=== PATIENT | male | born 1985 | race Caucasian/White ===

== ENCOUNTER 2017-01-01 13:56 | Emergency (ER) | payer OTHER ==
[~2017-01-01] VITALS: Ht 190.5 cm; Wt 135.8 kg
[~2017-01-01 13:56] MED LIST: TRAM-10 PO
[2017-01-01 14:07] VITALS: BP 122/74; PULSE 109; TEMP 36.9; O2SAT 94; Ht 190.5 cm; Wt 135.8 kg
[2017-01-01] MEDS ORDERED: CLIN300C2 PO (15:02)
--- NOTE | 2017-01-01 15:03 | EMERGENCY ROOM VISIT NOTE ---
ED Visit Note First contact with patient: 14:30 CHIEF COMPLAINT: Swelling of mouth HISTORY OF PRESENT ILLNESS: This 31-year-old male patient presented to the emergency department ambulatory complaining of swelling of the roof of the mouth. The patient reports that he has swelling of the roof of his mouth near his right upper molars. He states that the swollen area is tender to touch. He has had issues with the teeth over the past several months and has previously seen a dentist, who scheduled him for extraction of several of his teeth. This appointment is scheduled one week from now. He rates his discomfort a 10/10 and has not been taking anything at home for the symptoms. He has not been on antibiotics for a few months for dental issues. He reports pain with swallowing, but denies difficulty swallowing or difficulty breathing. Denies facial swelling or fever. The patient denies any discharge from the mouth. REVIEW OF SYSTEMS: A 6 system review of systems was completed with positives and pertinent negatives listed in the HPI. ALLERGIES: Pectin, Tea MEDICATIONS: Amlodipine, tramadol PMH: No significant past medical history. SOCIAL HISTORY: The patient lives locally. Former smoker. PHYSICAL EXAM: Vitals are noted on the nurse's note and reviewed by myself. Vital signs stable. Temperature 36.9C orally. GENERAL: This is a 31-year-old male, in no acute distress, nondiaphoretic, well-developed well-nourished. Mouth: There is an area of swelling of the gums just medial to the right upper second molar. The patient has several dental caries. There is no fluctuance or drainage. The remainder of the pharynx and tonsils are without erythema, edema, or exudate. The airway is patent. There is no facial swelling, cervical or submandibular lymphadenopathy. The patient appears uncomfortable and in pain. The patient has overall poor dental hygiene. EARS: External auditory canals clear, tympanic membranes pearly trotter without erythema or effusion bilaterally. ED COURSE: The patient was evaluated as above. Previous records were also reviewed. The patient has been here multiple times over the past several months for dental issues. On exam, he does appear to have a small periapical abscess. There is no fluctuance or drainable area at this time, but the patient will need close follow-up with dentistry. He will be placed on clindamycin to prevent worsening infection and will return if he does have symptoms of worsening infection. Conservative measures were discussed. The patient verbalized understanding of my assessment and treatment plan and was discharged home in good condition. DIAGNOSIS: Periapical abscess Problem List Medical Problems: (1) Anxiety Status: Chronic (2) Depression Status: Chronic (3) Hypertension Status: Chronic Current/Historical Medications Scheduled Amlodipine Besylate (Amlodipine Besylate), 5 MG PO DAILY Clindamycin Hcl (Cleocin), 300 MG PO QID Scheduled PRN Ibuprofen Tab (Advil), 800 MG PO Q4H PRN for Pain Tramadol HCl (Tramadol HCl), 50 MG PO Q8 PRN for Pain Allergies Coded Allergies: Pectin (Unverified Allergy, Unknown, UNKNOWN, 10/31/16) Tea (Unverified Allergy, Unknown, UNKNOWN- ALLERGIC TO PRESERVATIVES IN TEA, 10/31/16) Uncoded Nonscreenable Allergen (Unverified Allergy, Unknown, PRESERVATIVES IN TEA AND JELLY, 10/31/16) Vital Signs Date Time Temp Pulse Resp B/P Pulse Ox O2 Delivery O2 Flow Rate FiO2 01/01/17 14:07 36.9 109 18 122/74 94 Room Air Departure Information Impression Primary Impression: Periapical abscess Dispostion Home / Self-Care Condition GOOD Prescriptions Clindamycin Hcl (CLEOCIN) 300 Mg Cap 300 MG PO QID for 10 Days, #40 CAP Prov: Denise Mota .AMARIS 01/01/17 Referrals Jordyn Garcia D.O. (PCP) Patient Instructions My [facility] Additional Instructions You have been treated in the Emergency Department for Dental Pain/infection. You were prescribed clindamycin to be taken 4 times daily as prescribed. This is an antibiotic. All antibiotics have the potential to cause diarrhea. Stop this medication and contact a medical provider if you were to develop any significant adverse side effects including: wheezing, shortness of breath, passing out, vomiting, or a diffuse rash. Always take antibiotics as directed and COMPLETE the ENTIRE course regardless of the improvement of your symptoms. For pain control, you can use the following yilt-zyc-idclkek medicines (if >12 yo): - Regular strength (325mg/tab) Tylenol (acetaminophen) 2 tabs every 4-6 hours as needed. Do not exceed 12 tablets in a 24 hour period. Avoid taking more than 4 grams (4000 mg) of Tylenol per day. This includes any other sources of acetaminophen you may take on a regular basis. - Regular strength (200 mg/tab) Advil (ibuprofen) 1-2 tabs every 4-6 hours as needed. Do not exceed a dose of 3200 mg per day. Refrain from smoking cigarettes or using chewing tobacco until you have been evaluated by your dentist. Keeping beverages lukewarm and consuming soft foods can decrease your pain. Warm compresses over the affected area may offer some relief. You MUST seek evaluation of your dental pain by a dentist following your visit to the Emergency Department. The Emergency Department is not capable of treating dental issues long-term. You should call your dentist as soon as possible to make an appointment for evaluation of your dental pain. Return to the emergency department if you develop the following symptoms despite treatment course outlined above: fever, intractable pain, increased redness, swelling, or purulent discharge.
[2017-01-01] MEDS ORDERED: ULT50 PO (15:04)
[2017-01-01] MEDS ORDERED: NRV/5 PO (15:04)
[2017-01-01] MEDS ORDERED: IBUP-103 PO (17:47)
== END 2017-01-01 15:12 | disposition home or self-care (01) ==
LOC: C.EDB 13:57 → C.EDD 15:12
DX: K04.7 Periapical abscess without sinus (principal); F41.9 Anxiety disorder, unspecified; F32.9 Major depressive disorder, single episode, unspecified; I10 Essential (primary) hypertension; Z79.899 Other long term (current) drug therapy

== ENCOUNTER 2018-11-24 23:11 | Inpatient (IN) ==
[2018-11-24] MEDS ORDERED: ONDANSETRON INJ 2 MG/ML 2 ML VIAL IV STA (23:52)
[2018-11-24] MEDS ORDERED: MoRPHine SULFATE 4 MG/ML 1 ML CARP\\VIAL IV STA (23:52)
[2018-11-25 00:07] LABS: Basophils # (auto) 0.05 K/uL (0-0.2); Basophils % (auto) 0.3 %; Eosinophils % (auto) 3.1 %; Hematocrit (blood only) 44.1 % (42-52); Hemoglobin 14.9 g/dL (14.0-18.0); Immature Granulocytes # (auto) 0.07 K/uL (0.00-0.02); Immature Granulocytes % (auto) 0.4 %; Lymphocytes % (auto) 21.9 %; Mean Corpuscular Hgb Conc 33.8 g/dL (32-36); Mean Corpuscular Volume 86.3 fL (80-100); Monocytes % (auto) 6.3 %; Neutrophils # (auto) 10.83 K/uL (1.4-6.5); Platelet Count 385 K/uL (130-400); RDW Standard Deviation 43.9 fL (36.4-46.3); Red Blood Count 5.11 M/uL (4.7-6.1); White Blood Count 15.95 K/uL (4.8-10.8)
[2018-11-25] MEDS: SODIUM CHLORIDE 0.9% 1000ML 1,000 ML IV SCH ×2 (00:09→02:37)
[2018-11-25 00:15] LABS: Alanine Aminotransferase 119 U/L (12-78); Albumin Level 3.5 gm/dl (3.4-5.0); Aspartate Aminotransferase 49 U/L (15-37); BUN Creatinine Ratio 9.9 (10-20); Blood Urea Nitrogen 12 mg/dl (7-18); Calcium 8.9 mg/dl (8.5-10.1); Carbon Dioxide 21 mmol/L (21-32); Chloride 110 mmol/L (98-107); Creatinine Clr Calc Pharmacy 122.9 ml/min; Est GFR (African American) 92.8; Glucose 122 mg/dl (70-99); Potassium 3.5 mmol/L (3.5-5.1); Sodium 140 mmol/L (136-145)
[2018-11-25 00:20] LABS: Albumin Globulin Ratio 0.8 (0.9-2); Alkaline Phosphatase 148 U/L (45-117); Bilirubin,Total 0.2 mg/dl (0.2-1); Globulin 4.6 gm/dl (2.5-4.0); Total Protein 8.1 gm/dl (6.4-8.2); Troponin I < 0.015 ng/ml (0-0.045)
[2018-11-25] MEDS ORDERED: IOVERSOL 100ml IV PRN (00:39)
[2018-11-25] MEDS ORDERED: ONDANSETRON INJ 2 MG/ML 2 ML VIAL IV STA (01:21)
[2018-11-25] MEDS ORDERED: CIPROFLOXACIN 400 MG/200 ML BAG IV STA (01:21)
[2018-11-25] MEDS ORDERED: HYDROmorphone INJ 0.5 MG/0.5 ML SYR IV STA (01:21)
[2018-11-25 01:22] LABS: Appearance Urine Clear (Clear); Bilirubin Urine Negative (Negative); Color Urine Yellow; Glucose Urine UA Negative (Negative); Ketones Urine Negative (Negative); Leukocyte Esterase Urine Negative (Negative); Nitrite Urine Negative (Negative); Protein Urine Negative (Negative); Urobilinogen Urine Negative (Negative); pH Urine 6.5 (4.5-7.5)
[2018-11-25 01:44] LABS: Amphetamines+Metham, Urine Neg (Neg); Barbiturates, Urine Neg (Neg); Benzodiazepine, Urine Neg (Neg); Cocaine, Urine Neg (Neg); MDMA (Ecstacy), Urine Neg (Neg); Methadone, Urine Neg (Neg); Opiate, Urine Pos (Neg); Phencyclidine, Urine Neg (Neg)
[2018-11-25] MEDS ORDERED: ONDANSETRON INJ 2 MG/ML 2 ML VIAL IV PRN ×2 (02:56→09:33)
[2018-11-25] MEDS ORDERED: MoRPHine SULFATE 4 MG/ML 1 ML CARP\\VIAL ONE (03:03)
[2018-11-25] MEDS: MoRPHine SULFATE 4 MG/ML 1 ML CARP\\VIAL IV PRN ×2 (03:09→08:16)
[2018-11-25] MEDS: LACTATED RINGER'S 1,000 ML IV SCH ×4 (03:13→23:43)
[2018-11-25] MEDS ORDERED: HYDROmorphone INJ 1 MG/ML SYRINGE IV STA (04:49)
[2018-11-25] MEDS ORDERED: HYDROmorphone INJ 1 MG/ML SYRINGE ONE (04:53)
--- NOTE | 2018-11-25 07:44 | History & Physical Report ---
Date of Service November 25, 2018 Assessment & Plan (1) Cholecystitis: 33-year-old male with right upper quadrant abdominal pain ED labwork: WBC elevated at 15.95; Total Bili 0.2; LFTs elevated AST 49; ALT 119; Alk Phos 148 CT scan of abdomen/pelvis - possible cholecystitis Patient admitted by our service. Will proceed with Laparoscopic Cholecystectomy , Possible Open Cholecystectomy in OR today with Dr. De Jesus. Risks and benefits of surgery reviewed with patient. All questions answered. Patient NPO. IVFs running. SCDs Patient received Cipro in ED. as above. clinically c/w cholecystitis. discussed options/risks ( bleeding/ infection/dvt/pe/mi/cva/bile leaks, injury to other organs etc... questions answered will proceed with lap michaela kenneth Present on Admission?: Yes History of Present Illness Primary Care Provider: Jordyn Garcia Mr. Alonso is a 33-year-old male with past medical history significant for anxiety, depression, suicidal ideation, hypertension who presented to [facility] ED for evaluation of abdominal pain that began last evening around 10PM after eating some chocolate. Patient states that he had 2 hot pockets for dinner yesterday around 6PM. He reports that for two days prior to start of abdominal pain he was unable to move his bowels. He denies ever having abdominal pain like this before. Denies history of abdominal pain after eating greasy, fatty, or fried foods. Denies history of constipation or diarrhea. He currently rates his pain a 10/10. Denies fevers or chills. He denies vomiting, but does report associated nausea from the pain. He denies previous abdominal surgery, but does report that he was seen in the ED "a few years ago" and was told that he needed to have his appendix out, but he refused surgery and was treated with outpatient antibiotics. Patient never had appendix removed. Patient denies cardiac or pulmonary issues. He reports 1 prior surgery- tooth extraction. He denies alcohol use, denies recreational drug use. Reports that he does not take any medications. Of note, patient's opiate screen was positive- patient denies recent opiate use. Patient states that family has a strong history of gallbladder issues. Allergies Allergy/AdvReac Type Severity Reaction Status Date / Time pectin Allergy Unknown UNKNOWN Unverified 11/24/18 23:38 Tea Allergy Unknown UNKNOWN- Uncoded 11/24/18 23:38 ALLERGIC TO PRESERVATIVES IN TEA Uncoded Nonscreenable Allergy Unknown PRESERVATIVES Uncoded 11/24/18 23:38 Allergen IN TEA AND JELLY Home Medications Home Medications Medication Instructions Recorded Confirmed Type No Known Home Medications 11/24/18 11/24/18 History Past Med/Surg History Medical History Anxiety Cholecystitis Depression Hypertension Social History Current Living Situation: Other Current Living Situation Comment: Housemate Other Information That Helps Us Care for You: No Feels Safe at Home: Yes Safety Concerns: Feels Safe At This Time and Afraid for Self Smoking Status: Former smoker Do You Dip or Chew Tobacco: No Hx Alcohol Use: No Hx Substance Use: No Beliefs That Will Affect Care: Sikhism Sikhism Beliefs: Jainism Preferred Language: Turkish Communication Ability: Effective Field Administrative Assistant Required: No Physical Exam 2 Vital Signs (Past 24 Hours): Last Vital Signs Temp 36.7 C 11/25/18 07:04 Pulse 90 11/25/18 07:04 Resp 18 11/25/18 07:04 BP 151/97 H 11/25/18 07:04 Pulse Ox 95 11/25/18 07:04 Constitutional: + obese patient very tearful throughout entire history and physical- very scared of having surgery. Eyes: + anicteric sclerae Respiratory: normal respiratory effort, lungs clear to auscultation Cardiovascular: RRR, no murmur, no edema Gastrointestinal (Abdomen): Percussion/Palpation: + abdomen tender (tender to palpation in right upper quadrant. ), + guarding and abdomen soft
--- NOTE | 2018-11-25 08:35 | CT Scan Report ---
CT SCAN OF THE ABDOMEN AND PELVIS WITH IV CONTRAST CLINICAL HISTORY: Upper abdominal pain. Nausea and vomiting. COMPARISON STUDY: No priors. TECHNIQUE: Following the IV administration of 90 cc of Optiray 320, CT scan of the abdomen and pelvi s is performed from the lung bases to the proximal femora. Images are reviewed in the axial, sagittal , and coronal planes. IV contrast was administered without complication. A dose lowering technique wa s utilized adhering to the principles of ALARA. CT DOSE: 1710.97 mGy.cm FINDINGS: Lung bases: The heart is normal in size and without pericardial effusion. The lung bases are clear no ting mild bibasilar atelectasis. Liver: The contrast-enhanced liver is top normal in size and demonstrates diffusely diminished attenu ation consistent with severe hepatic steatosis. Fatty sparing is noted adjacent to gallbladder fossa. There is no intrahepatic biliary ductal dilatation. The hepatic veins and portal veins are patent. Gallbladder: There are numerous calcified gallstones. There are gallbladder is distended, and the wal l is thickened and hyperemic. There is pericholecystic inflammation, and the appearance is consistent with acute cholecystitis. The common bile duct is normal in caliber. Spleen: The spleen is mildly enlarged, measuring 14.1 cm in length. Pancreas: There is age advanced fatty atrophy of the pancreas. Adrenal glands: Unremarkable. Kidneys: The contrast enhanced kidneys are normal in size and without hydronephrosis. The kidneys enh ance symmetrically. Abdominal vasculature: The abdominal aorta is normal in course and caliber. Bowel: Moderate colonic fecal retention is observed. No bowel obstruction is identified. The appendix is well-visualized and normal. Peritoneum: There is no intraperitoneal free air or abdominal ascites. Lymphadenopathy: A mildly enlarged lymph node in the zoe hepatis centimeter 164 measures 17 mm shor t axis. A portacaval node measures 13 mm short axis. Pelvic viscera: The bladder, prostate, and seminal vesicles are normal as imaged. Skeletal structures: No lytic or blastic lesions are seen. IMPRESSION: 1. Cholelithiasis with evidence of acute cholecystitis. 2. Severe hepatic steatosis. 3. Mild splenomegaly. 4. Mildly enlarged lymph nodes in the zoe hepatis are likely on a reactive basis. Electronically signed by: Chavez Estes M.D. 11/25/2018 8:34 AM
--- NOTE | 2018-11-25 09:30 | Anesthesiology Consultation ---
Date of Service November 25, 2018 Assessment & Plan (1) Encounter for pre-operative examination: Chart Review Chart Review: Acceptable Risk for Surgery NPO Date Last Intake of Fluids: 11/25/18 Time Last Intake of Fluids: 03:00 Date Last Intake of Solids: 11/25/18 Time Last Intake of Solids: 03:00 History Surgery Operation Date: 11/25/18 10:00 Proposed Procedures p Laparoscopic Cholecystectomy - Ranjit De Jesus DO Height/Weight Height: 6 ft 3 in Weight: 145.2 kg Allergies Allergy/AdvReac Type Severity Reaction Status Date / Time pectin Allergy Unknown UNKNOWN Unverified 11/24/18 23:38 Tea Allergy Unknown UNKNOWN- Uncoded 11/24/18 23:38 ALLERGIC TO PRESERVATIVES IN TEA Uncoded Nonscreenable Allergy Unknown PRESERVATIVES Uncoded 11/24/18 23:38 Allergen IN TEA AND JELLY Medications Home Medications Medication Instructions Recorded Confirmed Last Taken No Known Home Medications 11/24/18 11/24/18 Unknown Active Medications Generic Name Dose Route Start Last Admin Trade Name Venuq PRN Reason Stop Dose Admin Lactated Ringer's 1,000 mls @ 125 mls/hr 11/25/18 02:56 11/25/18 03:13 Lr IV 12/25/18 02:55 125 mls/hr .Q8H DARRELL Administration Ioversol 90 ml 11/25/18 00:39 11/25/18 00:39 Optiray 320 100ml IV 11/29/18 00:38 1 ml ONCE PRN Administration Interaction Checking Morphine Sulfate 3 mg 11/25/18 02:56 11/25/18 08:16 Morphine Sulfate IV 12/09/18 02:55 3 mg Q2H PRN Administration Pain Ondansetron HCl 4 mg 11/25/18 02:56 11/25/18 03:09 Zofran IV 12/25/18 02:55 4 mg Q4 PRN Administration Nausea Past Medical History Medical History Anxiety Cholecystitis Depression Hypertension Social History Smoking Status: Former smoker Do You Dip or Chew Tobacco: No Hx Alcohol Use: No Hx Substance Use: No Physical Exam Vital Signs Last Vital Signs Temp 36.7 C 11/25/18 07:04 Pulse 90 11/25/18 07:04 Resp 18 11/25/18 07:04 BP 151/97 H 11/25/18 07:04 Pulse Ox 95 11/25/18 07:04 Testing Laboratory Results 11/24/18 23:35 11/24/18 23:35 Urine Color Yellow 11/25/18 01:05 Urine Appearance Clear (Clear) 11/25/18 01:05 Urine pH 6.5 (4.5-7.5) 11/25/18 01:05 Ur Specific [place] 1.030 (1.000-1.030) 11/25/18 01:05 Urine Protein Negative (Negative) 11/25/18 01:05 Urine Glucose (UA) Negative (Negative) 11/25/18 01:05 Urine Ketones Negative (Negative) 11/25/18 01:05 Urine Nitrite Negative (Negative) 11/25/18 01:05 Ur Leukocyte Esterase Negative (Negative) 11/25/18 01:05
[2018-11-25] MEDS ORDERED: ePHEDrine sulfate 50 MG/ML AMP IV PRN (09:33)
[2018-11-25] MEDS ORDERED: ATROPINE SULFATE 0.1 MG/ML 10ML SYR IV PRN (09:33)
[2018-11-25] MEDS ORDERED: fentaNYL citrate 100 MCG/2 ML VIAL IV PRN (09:33)
[2018-11-25] MEDS ORDERED: HYDROmorphone INJ 1 MG/ML SYRINGE IV PRN (09:33)
--- NOTE | 2018-11-25 09:44 | History & Physical Bridge Note ---
Date of Service November 25, 2018 History & Physical Bridge Note I have examined the patient, reviewed the History & Physical and in the interval since the performance of the History & Physical I have noted the following changes of clinical significance: no changes noted
[2018-11-25] MEDS ORDERED: ONDANSETRON INJ 2 MG/ML 2 ML VIAL ONE (09:56)
[2018-11-25] MEDS ORDERED: fentaNYL citrate 100 MCG/2 ML VIAL ONE ×2 (09:56→11:19)
[2018-11-25] MEDS ORDERED: SUCCINYLCHOLINE CHLORIDE 20 MG/ML 10 ML VIAL ONE (09:56)
[2018-11-25] MEDS ORDERED: DEXAMETHASONE SOD INJ 4 MG/ML VIAL ONE (09:56)
[2018-11-25] MEDS ORDERED: PROPOFOL IV EMULSION 10 MG/ML 20 ML VIAL IV ONE ×2 (09:56→10:31)
[2018-11-25] MEDS ORDERED: ROCURONIUM BROMIDE 10 MG/ML 5 ML VIAL ONE (09:56)
[2018-11-25] MEDS ORDERED: LIDOCAINE HCL 2% 2 ML VIAL/AMP(20MG/ML) INFIL ONE (09:56)
[2018-11-25] MEDS ORDERED: BUPIVACAINE/EPINEPHRINE 0.5% MPF 1:200,000 30 ML VIAL ONE (10:11)
[2018-11-25] MEDS ORDERED: CEFAZOLIN 250 MG/ML 1 GM VIAL ONE ×2 (10:35→10:40)
[2018-11-25] MEDS ORDERED: GLYCOPYRROLATE 0.2 MG/ML VIAL ONE (11:28)
[2018-11-25] MEDS ORDERED: NEOSTIGMINE METHYLSULFATE 5 MG/5 ML SYR ONE (11:28)
--- NOTE | 2018-11-25 12:54 | Anesthesiology Progress Note ---
Date of Service November 25, 2018 Anesthesia Post Procedure Vital Signs Vital Signs: Temp Pulse Pulse Pulse Resp BP BP 11/25/18 12:45 37.2 C 92 H 21 11/25/18 12:35 96 H 21 11/25/18 12:25 108 H 22 11/25/18 12:15 105 H 18 11/25/18 12:09 36.3 C L 105 H 24 11/25/18 07:04 36.7 C 90 18 11/25/18 03:00 36.8 C 82 16 11/25/18 02:23 96 H 18 152/98 H 11/25/18 01:11 96 H 18 153/99 H 11/24/18 23:19 36.3 C L 106 H 24 144/92 H BP Pulse Ox 11/25/18 12:45 147/79 H 94 11/25/18 12:35 131/84 92 11/25/18 12:25 146/81 H 96 11/25/18 12:15 130/69 95 11/25/18 12:09 148/80 H 98 11/25/18 07:04 151/97 H 95 11/25/18 03:00 93/66 L 94 11/25/18 02:23 95 11/25/18 01:11 98 11/24/18 23:19 96 Pain Intensity Bilateral Abdomen: Pain Intensity: 3 Notes Mental Status: alert / awake / arousable Patient Amnestic to Procedure: Yes Nausea / Vomiting: adequately controlled Pain: adequately controlled Airway Patency, RR, SpO2: stable & adequate BP & HR: stable & adequate Hydration State: stable & adequate Anesthetic Complications: no major complications apparent and Pt Satisfied with anesthetic care
[2018-11-25] MEDS ORDERED: MoRPHine SULFATE 4 MG/ML 1 ML CARP\\VIAL IV PRN (13:03)
[2018-11-25] MEDS ORDERED: MoRPHine SULFATE 2 MG/ML CARP IV PRN (13:03)
--- NOTE | 2018-11-25 13:33 | Operative Report ---
Post Operative Report Pre & Post Diagnosis Operation Date: 11/25/18 10:00 Pre-Op Diagnosis: Acute Cholecystitis Post-Op Diagnosis: Acute Cholecystitis Procedure Operation Date: 11/25/18 10:00 Actual Procedures p Laparoscopic Cholecystectomy(Not Applicable) - Ranjit De Jesus DO Surgeon Ranjit De Jesus DO Progressive Care Unit Registered Nurse ira Hernandez Estimated Blood Loss 20 Findings Consistent with Post-Op Diagnosis Specimens gallbladder Description of Procedure After informed consent was obtained the patient was taken to the operating room and placed in the supine position. After successful intubation the abdomen was sterilely prepped and draped in usual fashion. A periumbilical incision was made with an 11 blade scalpel and carried down through the soft tissue using electrocautery. The anterior rectus fascia was opened using electrocautery and 2 #0 Vicryl stay sutures were placed. The peritoneum was elevated with hemostats and incised under direct vision using Metzenbaum scissors. A finger sweep was performed and a 12 mm Barrios trocar was placed. The abdomen was insufflated to 18 mmHg. The laparoscope was inserted and the abdomen was examined in 360. No gross abnormalities were identified. A subxiphoid 5 mm port and 2 right upper quadrant 5 mm ports were placed under direct vision. The gallbladder was markedly and acutely inflamed. We were unable to grasp it because of the distention. I use a gallbladder needle to suction out about 30 cc of bile. Once we had it decompressed we were able to grasp it. The patient was placed in a reverse Trendelenburg position and slightly airplaned to the left. The gallbladder was grasped and elevated superiorly and laterally. A [place] dissector was used to take down adhesions around the neck of the gallbladder. The cystic duct was identified and skeletonized. It was clipped twice proximally and once distally and transected using a laparoscopic scissor. In similar fashion the cystic artery was identified and skeletonized clipped and divided. The gallbladder was removed from the gallbladder fossa with electrocautery. It was placed into an Endo Catch bag. Thorough irrigation was performed. At the end of the procedure there was adequate hemostasis and no evidence of any bile leaks. A final look around the abdomen showed no other abnormalities. The gallbladder and trochars were all removed and the abdomen was desufflated. The fascia of the camera port was closed using 0 Vicryl in a [id number] fashion. All the wounds were irrigated and closed using 4-0 Monocryl. Marcaine was injected around them for postoperative analgesia and skin glue used as a dressing. The patient was awaken extubated and transferred to recovery in stable condition. My physician's occupational therapist assistants was present throughout the entire case... helped with prepping the patient. With exposure for trocar placement, as well as retracted the gallbladder throughout the case and also assisted with wound closure and dressing placement. I attest to the content of the Intraoperative Record and any orders documented therein. Any exceptions are noted below.
[2018-11-25] MEDS ORDERED: NURSING DECISION MEDICATION ONE (15:29)
[2018-11-25] MEDS: HYDROCODONE/ACETAMOPHEN 5/325MG TAB PO PRN ×3 (15:33→23:43)
[2018-11-25] MEDS ORDERED: COUGH DROP (SUGAR FREE) LOZ 24 LOZ/1 BOX BUCCAL PRN (15:44)
[2018-11-25] MEDS: CEFAZOLIN 2000MG 2,000 MG/15 ML SYR IV SCH (18:02)
--- NOTE | 2018-11-25 23:39 | Emergency Department Note ---
History of Present Illness General Chief complaint: Vomiting Stated complaint: VOMIT, BELLY CRAMPS Time Seen by Provider: 11/24/18 23:32 History of Present Illness Maximum Pain Intensity: 6 This is a 33-year-old male presenting to the emergency department with complaints of epigastric abdominal pain, nausea, and vomiting for the last 2 hours. The patient states that he had dinner around 6 PM, eating a hot pocket, and shortly thereafter began having some mild abdominal discomfort. This has significantly worsened and he rates the current pain a 9/10. He is not having lower abdominal pain or diarrhea. His emesis was primarily watery and food. No blood or coffee-ground emesis. The patient has a mild headache from the vomiting but no chest pain, chest tightness, or shortness of breath. No recent travel history or antibiotic use. He does not have a history of abdominal surgery in the past. He has not taken anything [id number] and does not identify aggravating or alleviating factors. Home Medications Home Medications Medication Instructions Recorded Confirmed Type No Known Home Medications 11/24/18 11/24/18 History Allergies Allergy/AdvReac Type Severity Reaction Status Date / Time pectin Allergy Unknown UNKNOWN Unverified 11/24/18 23:38 Tea Allergy Unknown UNKNOWN- Uncoded 11/24/18 23:38 ALLERGIC TO PRESERVATIVES IN TEA Uncoded Nonscreenable Allergy Unknown PRESERVATIVES Uncoded 11/24/18 23:38 Allergen IN TEA AND JELLY Past Med/Surg History Medical History Anxiety Cholecystitis Depression Hypertension Social History Current Living Situation: Other Current Living Situation Comment: Housemate Other Information That Helps Us Care for You: No Feels Safe at Home: Yes Safety Concerns: Feels Safe At This Time and Afraid for Self Smoking Status: Former smoker Do You Dip or Chew Tobacco: No Hx Alcohol Use: No Hx Substance Use: No Beliefs That Will Affect Care: Jewish Jewish Beliefs: Muslim Preferred Language: Maltese Communication Ability: Effective Cafeteria Supervisor Required: No Review of Systems A total of 10 systems reviewed and were otherwise negative Physical Exam Vital Signs Vital Signs - 24 hr 11/25/18 01:11 11/25/18 02:23 11/25/18 03:00 Temperature 36.8 C Temperature Source Oral Pulse Rate [Apical] Pulse Rate [Right Finger] Pulse Rate [Right] 96 H 96 H 82 Pulse Rhythm [Apical] Pulse Rhythm [Right] Regular Regular Regular Pulse Strength [Apical] Pulse Strength [Right] Normal Normal Normal Respiratory Rate 18 18 16 Respiratory Effort / Characteristics Non-Labored Spontaneous Non-Labored Spontaneous Non-Labored Respiratory Depth Normal Normal Normal Respiratory Pattern Regular Regular Blood Pressure [Left Arm] 153/99 H 152/98 H Blood Pressure [Right Arm] 93/66 L Blood Pressure Mean [Left Arm] 117 116 Blood Pressure Mean [Right Arm] 75 Blood Pressure Position [Left Arm] Lying Sitting Blood Pressure Position [Right Arm] Sitting Pulse Oximetry 98 95 94 Oxygen Delivery Method Room Air Room Air Room Air Oxygen Flow Rate 11/25/18 07:04 11/25/18 12:09 11/25/18 12:15 Temperature 36.7 C 36.3 C L Temperature Source Oral Temporal Artery Scan Pulse Rate [Apical] 105 H 105 H Pulse Rate [Right Finger] Pulse Rate [Right] 90 Pulse Rhythm [Apical] Regular Regular Pulse Rhythm [Right] Pulse Strength [Apical] Normal Normal Pulse Strength [Right] Respiratory Rate 18 24 18 Respiratory Effort / Characteristics Non-Labored Spontaneous Non-Labored Non-Labored Respiratory Depth Normal Normal Normal Respiratory Pattern Regular Regular Regular Blood Pressure [Left Arm] Blood Pressure [Right Arm] 151/97 H 148/80 H 130/69 Blood Pressure Mean [Left Arm] Blood Pressure Mean [Right Arm] 115 102 89 Blood Pressure Position [Left Arm] Blood Pressure Position [Right Arm] Lying Pulse Oximetry 95 98 95 Oxygen Delivery Method Room Air Oxymask Oxymask Oxygen Flow Rate 10 10 11/25/18 12:25 11/25/18 12:35 11/25/18 12:45 Temperature 37.2 C Temperature Source Temporal Artery Scan Pulse Rate [Apical] 108 H 96 H 92 H Pulse Rate [Right Finger] Pulse Rate [Right] Pulse Rhythm [Apical] Regular Regular Regular Pulse Rhythm [Right] Pulse Strength [Apical] Normal Normal Normal Pulse Strength [Right] Respiratory Rate 22 21 21 Respiratory Effort / Characteristics Non-Labored Non-Labored Non-Labored Respiratory Depth Normal Normal Normal Respiratory Pattern Regular Regular Regular Blood Pressure [Left Arm] Blood Pressure [Right Arm] 146/81 H 131/84 147/79 H Blood Pressure Mean [Left Arm] Blood Pressure Mean [Right Arm] 102 99 101 Blood Pressure Position [Left Arm] Blood Pressure Position [Right Arm] Pulse Oximetry 96 92 94 Oxygen Delivery Method Oxymask Nasal Cannula Nasal Cannula Oxygen Flow Rate 10 4 4 11/25/18 13:00 11/25/18 13:12 11/25/18 13:37 Temperature 37.3 C 36.9 C Temperature Source Oral Oral Pulse Rate [Apical] Pulse Rate [Right Finger] 104 H 93 H Pulse Rate [Right] Pulse Rhythm [Apical] Pulse Rhythm [Right] Pulse Strength [Apical] Pulse Strength [Right] Respiratory Rate 18 16 Respiratory Effort / Characteristics Non-Labored Spontaneous Non-Labored Spontaneous Non-Labored Spontaneous Respiratory Depth Normal Normal Normal Respiratory Pattern Regular Regular Regular Blood Pressure [Left Arm] Blood Pressure [Right Arm] 116/69 137/85 Blood Pressure Mean [Left Arm] Blood Pressure Mean [Right Arm] 84 102 Blood Pressure Position [Left Arm] Blood Pressure Position [Right Arm] Sitting Lying Pulse Oximetry 93 94 Oxygen Delivery Method Nasal Cannula Nasal Cannula Nasal Cannula Oxygen Flow Rate 4 4 4 11/25/18 14:01 11/25/18 14:56 11/25/18 16:00 Temperature 36.6 C 36.8 C 36.7 C Temperature Source Oral Oral Oral Pulse Rate [Apical] Pulse Rate [Right Finger] 109 H 109 H 109 H Pulse Rate [Right] Pulse Rhythm [Apical] Pulse Rhythm [Right] Pulse Strength [Apical] Pulse Strength [Right] Respiratory Rate 16 18 18 Respiratory Effort / Characteristics Non-Labored Spontaneous Non-Labored Spontaneous Respiratory Depth Normal Normal Normal Respiratory Pattern Regular Regular Blood Pressure [Left Arm] Blood Pressure [Right Arm] 139/92 128/85 124/73 Blood Pressure Mean [Left Arm] Blood Pressure Mean [Right Arm] 107 99 90 Blood Pressure Position [Left Arm] Blood Pressure Position [Right Arm] Lying Pulse Oximetry 94 91 91 Oxygen Delivery Method Nasal Cannula Room Air Room Air Oxygen Flow Rate 4 11/25/18 23:03 11/25/18 23:04 Temperature 36.9 C 36.9 C Temperature Source Oral Oral Pulse Rate [Apical] Pulse Rate [Right Finger] 115 H 115 H Pulse Rate [Right] Pulse Rhythm [Apical] Pulse Rhythm [Right] Pulse Strength [Apical] Pulse Strength [Right] Respiratory Rate 18 18 Respiratory Effort / Characteristics Respiratory Depth Respiratory Pattern Blood Pressure [Left Arm] 128/70 Blood Pressure [Right Arm] Blood Pressure Mean [Left Arm] 89 Blood Pressure Mean [Right Arm] Blood Pressure Position [Left Arm] Lying Blood Pressure Position [Right Arm] Pulse Oximetry 92 92 Oxygen Delivery Method Room Air Room Air Oxygen Flow Rate VITALS: Vitals are noted on the nurse's note and reviewed by myself. Vital signs stable. GENERAL: Well-developed, well-nourished, white male, who is in no acute distress and resting comfortably. Patient is cooperative with the examination. HEAD: Normocephalic atraumatic. EYES: Pupils equal round and reactive to light and accommodation. Conjunctivae without injection, sclerae without icterus. Extraocular movements intact. NECK: Supple without nuchal rigidity. No lymphadenopathy. No thyromegaly. Cervical spine is nontender. HEART: Regular rate and rhythm without murmurs gallops or rubs. LUNGS: Clear to auscultation bilaterally without wheezes, rales or rhonchi. No retractions or accessory muscle use. ABDOMEN: Positive normal bowel sounds x 4. Soft with epigastric tenderness on palpation. No rebound or guarding. MUSCULOSKELETAL: No muscle atrophy, erythema, or edema noted. Full range of motion in all extremities. NEURO: Patient was alert and oriented to person place and time. CN II through XII grossly intact. SKIN: The skin was without rashes, erythema, edema, or bruising. Capillary refill less than 2 seconds. Course Administered Medications Hydrocodone Bitart/Acetaminophen (Anton 5/325) 1 tab PO Q4H PRN PRN Reason: MODERATE Pain (Scale 4,5,6) Stop: 12/09/18 13:02 Last Admin: 11/25/18 19:21 Dose: 1 tab Admin: 11/25/18 15:33 Dose: 1 tab Lactated Ringer's (Lr) 1,000 mls @ 125 mls/hr IV .Q8H DARRELL Stop: 12/25/18 02:55 Last Admin: 11/25/18 16:29 Dose: 125 mls/hr Infusion: 11/25/18 16:29 Dose: 125 mls/hr Admin: 11/25/18 13:10 Dose: 125 mls/hr Infusion: 11/25/18 13:05 Dose: 0 mls/hr Admin: 11/25/18 03:13 Dose: 125 mls/hr Cefazolin Sodium (Ancef 2000mg) 2,000 mg in 15 mls @ 3.75 mls/min IV Q8H DARRELL; Protocol Stop: 11/26/18 17:59 Last Admin: 11/25/18 18:02 Dose: 3.75 mls/min Ioversol (Optiray 320 100ml) 90 ml IV ONCE PRN PRN Reason: Interaction Checking Stop: 11/29/18 00:38 Last Admin: 11/25/18 00:39 Dose: 1 ml Menthol (Nice) 1 jose e BUCCAL PRN PRN PRN Reason: Cough Stop: 12/25/18 15:43 Last Admin: 11/25/18 16:01 Dose: 1 jose e Morphine Sulfate (Morphine Sulfate) 3 mg IV Q2H PRN PRN Reason: Pain Stop: 12/09/18 02:55 Last Admin: 11/25/18 08:16 Dose: 3 mg Admin: 11/25/18 03:09 Dose: 3 mg Ondansetron HCl (Zofran) 4 mg IV Q4 PRN PRN Reason: Nausea Stop: 12/25/18 02:55 Last Admin: 11/25/18 03:09 Dose: 4 mg Discontinued Medications Bupivacaine HCl/Epinephrine Bitart (Sensorcaine/Epinephrine 0.5% Mpf 1:200,000) Confirm Administered Dose 30 ml .ROUTE .STGezlong-MED ONE Stop: 11/25/18 10:12 Last Admin: 11/25/18 11:34 Dose: 10 ml Cefazolin Sodium (Ancef) Confirm Administered Dose 2,000 mg .ROUTE .STK-MED ONE Stop: 11/25/18 10:36 Last Admin: 11/25/18 10:39 Dose: 2,000 mg Hydromorphone HCl (Dilaudid) 0.5 mg IV NOW STA Stop: 11/25/18 01:22 Last Admin: 11/25/18 01:27 Dose: 0.5 mg Hydromorphone HCl (Dilaudid) 1 mg IV NOW STA Stop: 11/25/18 04:50 Last Admin: 11/25/18 04:55 Dose: 1 mg Hydromorphone HCl (Dilaudid) Confirm Administered Dose 1 mg .ROUTE .STK-MED ONE Stop: 11/25/18 04:54 Last Admin: 11/25/18 04:56 Dose: Not Given Sodium Chloride (Nss 1000ml) 1,000 mls @ 999 mls/hr IV .Q1H1M [facility] Stop: 11/25/18 01:45 Last Admin: 11/25/18 02:37 Dose: Not Given Infusion: 11/25/18 01:12 Dose: 0 mls/hr Admin: 11/25/18 00:09 Dose: 999 mls/hr Ciprofloxacin (Cipro) 400 mg in 200 mls @ 200 mls/hr IV NOW STA Stop: 11/25/18 02:20 Last Infusion: 11/25/18 02:33 Dose: 0 mls/hr Admin: 11/25/18 01:27 Dose: 200 mls/hr Morphine Sulfate (Morphine Sulfate) 4 mg IV NOW STA Stop: 11/24/18 23:53 Last Admin: 11/25/18 00:09 Dose: 4 mg Morphine Sulfate (Morphine Sulfate) Confirm Administered Dose 4 mg .ROUTE .STK- MED ONE Stop: 11/25/18 03:04 Last Admin: 11/25/18 04:03 Dose: Not Given Ondansetron HCl (Zofran) 4 mg IV NOW STA Stop: 11/24/18 23:53 Last Admin: 11/25/18 00:09 Dose: 4 mg Ondansetron HCl (Zofran) 4 mg IV NOW STA Stop: 11/25/18 01:22 Last Admin: 11/25/18 01:27 Dose: 4 mg Medical Decision Making Differential Diagnosis Differential diagnosis: Etiologies such as biliary colic, cholecystitis, hepatitis, pancreatitis, cardiac disease, pancreatitis, gastritis, peptic ulcer disease, appendicitis, cystitis, diverticulitis, mesenteric ischemia, inflammatory bowel disease, ileus , bowel obstruction, testicular/adnexal torsion, aortic pathology, shingles, as well as others were considered Laboratory Data Result diagrams: 11/24/18 23:35 11/24/18 23:35 Lab Results 11/24/18 11/24/18 11/25/18 Range/Units 23:35 23:35 01:05 WBC 15.95 H (4.8-10.8) K/uL RBC 5.11 (4.7-6.1) M/uL Hgb 14.9 (14.0-18.0) g/dL Hct 44.1 (42-52) % MCV 86.3 (80-100) fL MCH 29.2 (25-34) pg MCHC 33.8 (32-36) g/dL RDW Std Deviation 43.9 (36.4-46.3) fL RDW Coeff of Kai 14.0 (11.5-14.5) % Plt Count 385 (130-400) K/uL MPV 10.0 (7.4-10.4) fL Immature Gran % (Auto) 0.4 % Neut % (Auto) 68.0 % Lymph % (Auto) 21.9 % [place] % (Auto) 6.3 % Eos % (Auto) 3.1 % Baso % (Auto) 0.3 % Immature Gran # (Auto) 0.07 H (0.00-0.02) K/uL Neut # (Auto) 10.83 H (1.4-6.5) K/uL Lymph # (Auto) 3.50 H (1.2-3.4) K/uL [place] # (Auto) 1.00 H (0.11-0.59) K/uL Eos # (Auto) 0.50 (0-0.5) K/uL Baso # (Auto) 0.05 (0-0.2) K/uL Sodium 140 (136-145) mmol/L Potassium 3.5 (3.5-5.1) mmol/L Chloride 110 H (98-107) mmol/L Carbon Dioxide 21 (21-32) mmol/L Anion Gap 9.0 (3-11) BUN 12 (7-18) mg/dl Creatinine 1.18 (0.6-1.4) mg/dl Est Cr Clr Drug Dosing 122.9 ml/min Est GFR ( Amer) 92.8 Est GFR (Non-Af Amer) 80.0 BUN/Creatinine Ratio 9.9 L (10-20) Glucose 122 H (70-99) mg/dl Calcium 8.9 (8.5-10.1) mg/dl Total Bilirubin 0.2 (0.2-1) mg/dl AST 49 H (15-37) U/L ALT 119 H (12-78) U/L Alkaline Phosphatase 148 H (45-117) U/L Troponin I < 0.015 (0-0.045) ng/ml Total Protein 8.1 (6.4-8.2) gm/dl Albumin 3.5 (3.4-5.0) gm/dl Globulin 4.6 H (2.5-4.0) gm/dl Albumin/Globulin Ratio 0.8 L (0.9-2) Lipase 118 (73-393) U/L Urine Color Urine Appearance (Clear) Urine pH (4.5-7.5) Ur Specific [place] (1.000-1.030) Urine Protein (Negative) Urine Glucose (UA) (Negative) Urine Ketones (Negative) Urine Blood (Negative) Urine Nitrite (Negative) Urine Bilirubin (Negative) Urine Urobilinogen (Negative) Ur Leukocyte Esterase (Negative) Urine Opiates Screen Pos H (Neg) Ur Methadone, Qual Neg (Neg) Urine Barbiturates Neg (Neg) Ur Phencyclidine (PCP) Neg (Neg) U Amphetamin/Meth Scrn Neg (Neg) MDMA (Ecstasy) Screen Neg (Neg) U Benzodiazepines Scrn Neg (Neg) Ur Cocaine Metabolite Neg (Neg) U Marijuana (THC) Screen Neg (Neg) 11/25/18 Range/Units 01:05 WBC (4.8-10.8) K/uL RBC (4.7-6.1) M/uL Hgb (14.0-18.0) g/dL Hct (42-52) % MCV (80-100) fL MCH (25-34) pg MCHC (32-36) g/dL RDW Std Deviation (36.4-46.3) fL RDW Coeff of Kai (11.5-14.5) % Plt Count (130-400) K/uL MPV (7.4-10.4) fL Immature Gran % (Auto) % Neut % (Auto) % Lymph % (Auto) % [place] % (Auto) % Eos % (Auto) % Baso % (Auto) % Immature Gran # (Auto) (0.00-0.02) K/uL Neut # (Auto) (1.4-6.5) K/uL Lymph # (Auto) (1.2-3.4) K/uL [place] # (Auto) (0.11-0.59) K/uL Eos # (Auto) (0-0.5) K/uL Baso # (Auto) (0-0.2) K/uL Sodium (136-145) mmol/L Potassium (3.5-5.1) mmol/L Chloride (98-107) mmol/L Carbon Dioxide (21-32) mmol/L Anion Gap (3-11) BUN (7-18) mg/dl Creatinine (0.6-1.4) mg/dl Est Cr Clr Drug Dosing ml/min Est GFR ( Amer) Est GFR (Non-Af Amer) BUN/Creatinine Ratio (10-20) Glucose (70-99) mg/dl Calcium (8.5-10.1) mg/dl Total Bilirubin (0.2-1) mg/dl AST (15-37) U/L ALT (12-78) U/L Alkaline Phosphatase (45-117) U/L Troponin I (0-0.045) ng/ml Total Protein (6.4-8.2) gm/dl Albumin (3.4-5.0) gm/dl Globulin (2.5-4.0) gm/dl Albumin/Globulin Ratio (0.9-2) Lipase (73-393) U/L Urine Color Yellow Urine Appearance Clear (Clear) Urine pH 6.5 (4.5-7.5) Ur Specific [place] 1.030 (1.000-1.030) Urine Protein Negative (Negative) Urine Glucose (UA) Negative (Negative) Urine Ketones Negative (Negative) Urine Blood Negative (Negative) Urine Nitrite Negative (Negative) Urine Bilirubin Negative (Negative) Urine Urobilinogen Negative (Negative) Ur Leukocyte Esterase Negative (Negative) Urine Opiates Screen (Neg) Ur Methadone, Qual (Neg) Urine Barbiturates (Neg) Ur Phencyclidine (PCP) (Neg) U Amphetamin/Meth Scrn (Neg) MDMA (Ecstasy) Screen (Neg) U Benzodiazepines Scrn (Neg) Ur Cocaine Metabolite (Neg) U Marijuana (THC) Screen (Neg) Imaging Data Radiologist's Impression: CT SCAN OF THE ABDOMEN AND PELVIS WITH IV CONTRAST CLINICAL HISTORY: Upper abdominal pain. Nausea and vomiting. COMPARISON STUDY: No priors. TECHNIQUE: Following the IV administration of 90 cc of Optiray 320, CT scan of the abdomen and pelvis is performed from the lung bases to the proximal femora. Images are reviewed in the axial, sagittal, and coronal planes. IV contrast was administered without complication. A dose lowering technique was utilized adhering to the principles of ALARA. CT DOSE: 1710.97 mGy.cm FINDINGS: Lung bases: The heart is normal in size and without pericardial effusion. The lung bases are clear noting mild bibasilar atelectasis. Liver: The contrast-enhanced liver is top normal in size and demonstrates diffusely diminished attenuation consistent with severe hepatic steatosis. Fatty sparing is noted adjacent to gallbladder fossa. There is no intrahepatic biliary ductal dilatation. The hepatic veins and portal veins are patent. Gallbladder: There are numerous calcified gallstones. There are gallbladder is distended, and the wall is thickened and hyperemic. There is pericholecystic inflammation, and the appearance is consistent with acute cholecystitis. The common bile duct is normal in caliber. Spleen: The spleen is mildly enlarged, measuring 14.1 cm in length. Pancreas: There is age advanced fatty atrophy of the pancreas. Adrenal glands: Unremarkable. Kidneys: The contrast enhanced kidneys are normal in size and without hydronephrosis. The kidneys enhance symmetrically. Abdominal vasculature: The abdominal aorta is normal in course and caliber. Bowel: Moderate colonic fecal retention is observed. No bowel obstruction is identified. The appendix is well-visualized and normal. Peritoneum: There is no intraperitoneal free air or abdominal ascites. Lymphadenopathy: A mildly enlarged lymph node in the zoe hepatis centimeter 164 measures 17 mm short axis. A portacaval node measures 13 mm short axis. Pelvic viscera: The bladder, prostate, and seminal vesicles are normal as imaged. Skeletal structures: No lytic or blastic lesions are seen. IMPRESSION: 1. Cholelithiasis with evidence of acute cholecystitis. 2. Severe hepatic steatosis. 3. Mild splenomegaly. 4. Mildly enlarged lymph nodes in the zoe hepatis are likely on a reactive basis. MDM Narrative Physical exam and history were performed. Nursing notes, EMR, and Medication List were personally reviewed. Patient appears to have epigastric abdominal pain that began a few hours ago. The patient appears uncomfortable but nontoxic. He is tender in the epigastric area. IV access was established and labs were obtained. The patient was hydrated with normal saline and given IV morphine and IV Zofran. CT scan was performed with IV contrast as the patient was not able to tolerate oral hydration. The patient's blood work is as above and was reviewed. He does have an elevated white blood cell count of greater than 15,000. He does not have a significant anemia or gross electrolyte imbalance. His transaminases are elevated. Lipase is normal. Urine is without evidence of infection. The patient CT scan is highly suggestive of acute cholecystitis. The case was discussed with the on-call surgeon, Dr. De Jesus, who will evaluate the patient. Please see Dr. De Jesus's dictation for further patient course, plan, and disposition. The chart was completed utilizing [employer] Speech Voice Recognition Software. Grammatical errors, random word insertions, pronoun errors, and incomplete sentences are an occasional consequence of this system due to software limitations, ambient noise, and hardware issues. Any formal questions or concerns about the content, text, or information contained within the body of this dictation should be directly addressed to the provider for clarification. . Impression & Plan Acute cholecystitis Discharge Plan Visit Data *Final* Discharge Date/Time: 11/25/18 02:43 Chief Complaint: Vomiting Stated Complaint: VOMIT, BELLY CRAMPS ED Provider: Maikel Bardales ED Midlevel Provider: Piotr Saucedo Discharge Problem: Acute cholecystitis Patient Disposition: Admitted As Inpatient Discharge Instructions Interventions: ED Discharge Assessment Last Done: 11/25/18 02:43
[2018-11-26] MEDS: CEFAZOLIN 2000MG 2,000 MG/15 ML SYR IV SCH ×3 (01:17→17:34)
[2018-11-26 06:12] LABS: Basophils # (auto) 0.02 K/uL (0-0.2); Basophils % (auto) 0.1 %; Eosinophils # (auto) 0.04 K/uL (0-0.5); Eosinophils % (auto) 0.2 %; Hematocrit (blood only) 39.1 % (42-52); Immature Granulocytes # (auto) 0.05 K/uL (0.00-0.02); Immature Granulocytes % (auto) 0.3 %; Lymphocytes # (auto) 2.46 K/uL (1.2-3.4); Lymphocytes % (auto) 14.2 %; Mean Corpuscular Hgb Conc 33.2 g/dL (32-36); Mean Corpuscular Volume 88.1 fL (80-100); Mean Platelet Volume 9.5 fL (7.4-10.4); Monocytes # (auto) 1.32 K/uL (0.11-0.59); Monocytes % (auto) 7.6 %; Neutrophils # (auto) 13.49 K/uL (1.4-6.5); Neutrophils % (auto) 77.6 %; Platelet Count 360 K/uL (130-400); RDW Coefficient of Variation 14.3 % (11.5-14.5); RDW Standard Deviation 46.3 fL (36.4-46.3); Red Blood Count 4.44 M/uL (4.7-6.1); White Blood Count 17.38 K/uL (4.8-10.8)
[2018-11-26 06:52] LABS: Bilirubin Direct 0.2 mg/dl (0-0.2); Bilirubin,Total 0.5 mg/dl (0.2-1); Total Protein 7.2 gm/dl (6.4-8.2)
[2018-11-26] MEDS: HYDROCODONE/ACETAMOPHEN 5/325MG TAB PO PRN ×3 (07:48→18:22)
[2018-11-26] MEDS: LACTATED RINGER'S 1,000 ML IV SCH ×3 (07:49→23:50)
--- NOTE | 2018-11-26 08:11 | Anesthesiology Progress Note ---
Date of Service November 26, 2018 Anesthesia Post Procedure Vital Signs Vital Signs: Temp Pulse Pulse Resp BP BP Pulse Ox 11/26/18 07:18 36.6 C 80 21 115/69 90 11/26/18 04:20 36.8 C 88 17 134/86 91 11/25/18 23:04 36.9 C 115 H 18 128/70 92 11/25/18 23:03 36.9 C 115 H 18 92 11/25/18 16:00 36.7 C 109 H 18 124/73 91 11/25/18 14:56 36.8 C 109 H 18 128/85 91 11/25/18 14:01 36.6 C 109 H 16 139/92 94 11/25/18 13:37 36.9 C 93 H 16 137/85 94 11/25/18 13:00 37.3 C 104 H 18 116/69 93 11/25/18 12:45 37.2 C 92 H 21 147/79 H 94 11/25/18 12:35 96 H 21 131/84 92 11/25/18 12:25 108 H 22 146/81 H 96 11/25/18 12:15 105 H 18 130/69 95 11/25/18 12:09 36.3 C L 105 H 24 148/80 H 98 Pain Intensity Bilateral Abdomen: Pain Intensity: 4 Notes Mental Status: alert / awake / arousable and participated in evaluation Patient Amnestic to Procedure: Yes Nausea / Vomiting: adequately controlled Pain: adequately controlled Airway Patency, RR, SpO2: stable & adequate BP & HR: stable & adequate Hydration State: stable & adequate Anesthetic Complications: no major complications apparent
--- NOTE | 2018-11-26 09:12 | Surgery Progress Note ---
Date of Service November 26, 2018 Assessment & Plan (1) Acute cholecystitis: pod 1 doing well but not ready for d/c yet increase activity and diet today recheck labs tomorrow possible d/c tomorrow if all goes well. Subjective feels much better than yesterday. Physical Exam 2 Vital Signs (Past 24 Hours): Last Vital Signs Temp 36.6 C 11/26/18 07:18 Pulse 80 11/26/18 07:18 Resp 21 11/26/18 07:18 BP 115/69 11/26/18 07:18 Pulse Ox 90 11/26/18 07:18 Physical Exam: alert/oriented. nad abdomen: soft. expected tenderness.
[2018-11-26] MEDS: MoRPHine SULFATE 4 MG/ML 1 ML CARP\\VIAL IV PRN (21:13)
[2018-11-27] MEDS: CEFAZOLIN 2000MG 2,000 MG/15 ML SYR IV SCH ×2 (00:58→08:49)
[2018-11-27] MEDS ORDERED: SALINE NASAL 225 SPRAYS, GENTAMICIN SULFATE 60 MG, BARCODE IDENTIFIER 0 EA PRN (01:04)
[2018-11-27] MEDS ORDERED: SODIUM CHLORIDE 0.65% NA SOLN 45 ML (OCEAN) NAE PRN (01:09)
[2018-11-27] MEDS: HYDROCODONE/ACETAMOPHEN 5/325MG TAB PO PRN ×2 (05:52→13:09)
[2018-11-27 07:44] LABS: Basophils # (auto) 0.04 K/uL (0-0.2); Basophils % (auto) 0.3 %; Eosinophils # (auto) 0.53 K/uL (0-0.5); Eosinophils % (auto) 3.4 %; Hematocrit (blood only) 39.9 % (42-52); Hemoglobin 13.4 g/dL (14.0-18.0); Immature Granulocytes # (auto) 0.06 K/uL (0.00-0.02); Immature Granulocytes % (auto) 0.4 %; Lymphocytes # (auto) 3.97 K/uL (1.2-3.4); Lymphocytes % (auto) 25.7 %; Mean Corpuscular Hgb Conc 33.6 g/dL (32-36); Mean Corpuscular Volume 88.3 fL (80-100); Mean Platelet Volume 9.5 fL (7.4-10.4); Monocytes # (auto) 1.33 K/uL (0.11-0.59); Monocytes % (auto) 8.6 %; Neutrophils # (auto) 9.49 K/uL (1.4-6.5); Neutrophils % (auto) 61.6 %; Platelet Count 348 K/uL (130-400); RDW Coefficient of Variation 14.5 % (11.5-14.5); RDW Standard Deviation 47.2 fL (36.4-46.3); Red Blood Count 4.52 M/uL (4.7-6.1); White Blood Count 15.42 K/uL (4.8-10.8)
--- NOTE | 2018-11-27 07:59 | Surgery Progress Note ---
Date of Service November 27, 2018 Assessment & Plan (1) Acute cholecystitis: POD 2 lap michaela increase activity d/c today as above. ready to go home instruction given wounds look good Subjective still on IV analgesics, not amb out of room, had regular diet Physical Exam 2 Vital Signs (Past 24 Hours): Last Vital Signs Temp 36.9 C 11/26/18 23:11 Pulse 110 H 11/26/18 23:11 Resp 16 11/26/18 23:11 BP 119/68 11/26/18 23:11 Pulse Ox 92 11/26/18 23:11 Gastrointestinal (Abdomen): Inspection/Auscultation: abdomen not distended Percussion/Palpation: abdomen soft
[2018-11-27 08:17] LABS: Bilirubin Direct 0.2 mg/dl (0-0.2); Bilirubin,Total 0.6 mg/dl (0.2-1); Total Protein 7.2 gm/dl (6.4-8.2)
[2018-11-27] MEDS ORDERED: KETOROLAC TROMETHAMINE 15 MG/ML VIAL IV ONE (08:44)
[2018-11-28 16:47] LABS: Hydrocodone Urine NEGATIVE NG/ML (CUTOFF=50); Hydromor Urine NEGATIVE NG/ML (CUTOFF=50); Morphine Urine 1110 NG/ML (CUTOFF=50); Norhydrocodone Conf Ur NEGATIVE NG/ML (CUTOFF=50); Noroxycodone Urine NEGATIVE NG/ML (CUTOFF=50); Oxycodone Urine NEGATIVE NG/ML (CUTOFF=50)
--- NOTE | 2018-12-04 08:08 | Discharge Summary ---
Date of Service December 04, 2018 Admission HPI Per Admitting Provider Mr. Alonso is a 33-year-old male with past medical history significant for anxiety, depression, suicidal ideation, hypertension who presented to [facility] ED for evaluation of abdominal pain that began last evening around 10PM after eating some chocolate. Patient states that he had 2 hot pockets for dinner yesterday around 6PM. He reports that for two days prior to start of abdominal pain he was unable to move his bowels. He denies ever having abdominal pain like this before. Denies history of abdominal pain after eating greasy, fatty, or fried foods. Denies history of constipation or diarrhea. He currently rates his pain a 10/10. Denies fevers or chills. He denies vomiting, but does report associated nausea from the pain. He denies previous abdominal surgery, but does report that he was seen in the ED "a few years ago" and was told that he needed to have his appendix out, but he refused surgery and was treated with outpatient antibiotics. Patient never had appendix removed. Patient denies cardiac or pulmonary issues. He reports 1 prior surgery- tooth extraction. He denies alcohol use, denies recreational drug use. Reports that he does not take any medications. Of note, patient's opiate screen was positive- patient denies recent opiate use. Patient states that family has a strong history of gallbladder issues. Principal Diagnosis Acute Cholecystitis Discharge Data Allergies Allergy/AdvReac Type Severity Reaction Status Date / Time pectin Allergy Unknown UNKNOWN Unverified 11/24/18 23:38 Tea Allergy Unknown UNKNOWN- Uncoded 11/24/18 23:38 ALLERGIC TO PRESERVATIVES IN TEA Uncoded Nonscreenable Allergy Unknown PRESERVATIVES Uncoded 11/24/18 23:38 Allergen IN TEA AND JELLY Consultations 11/25/18 01:34 ED Decision to Admit Stat 11/25/18 01:46 ED Decision to Admit Stat Procedures Performed Operation Date: 11/25/18 10:00 Actual Procedures p Laparoscopic Cholecystectomy(Not Applicable) - Ranjit De Jesus DO Ordered Studies 11/24/18 23:52 CT abd pelvis IV con only Urgent Hospital Course (1) Acute cholecystitis: Operation Date: 11/25/18 10:00 Pre-Op Diagnosis: Acute Cholecystitis Post-Op Diagnosis:Acute Cholecystitis Procedure Actual Procedures p Laparoscopic Cholecystectomy(Not Applicable) - Ranjit De Jesus DO Post-operatively, patient was transferred back to Med/Surg floor for pain control and continued observation. POD #1- patient still complains of abdominal pain, but significantly improved from admission. Tolerating advanced diet, voiding without difficulty. POD #2: Goal- increase activity, Tolerating regular diet, pain well controlled. Patient has some mild redness and tenderness at midline incision- will give patient course of Keflex. Ok for discharge. Return precautions reviewed. Verbal and written discharge instructions provided. Patient to follow- up in General Surgery clinic in 1-2 weeks. All questions answered. Total Time Total Time Spent Total Time Spent (In Minutes): 10 Discharge Plan Discharge Items Patient Disposition: Home - Self-Care Reason For Visit: CHOLECYSTITIS Discharge Diagnosis: Cholecystitis Discharge Goals: Decrease discomfort and Improve function Activity: As commented below Lifting: No more than 10 pounds Bathing Comment: May shower, but please do not soak or scrub your incisions. Sexual Activity: When tolerated Driving/Machine Use: Resume 1 day after discharge Non-emergency contact: Surgeon Call non-emergency contact if: you have any medication questions, your pain is not controlled, your temperature is above 101.5, your wound has increased redness and your wound has increased drainage Follow-up/Referrals: Ranjit De Jesus DO [Surgeon] - (Please follow-up with Dr. De Jesus in the General Surgery clinic in 1-2 weeks. Please call the clinic at [phone] to schedule this appointment. ) Diet: Regular Addtl Provider Instructions: You have surgical glue, Dermabond, over your incisions. You may shower, but please do not soak or scrub your incisions. Do not submerge your incisions in any pools, baths, or hot tubs. You have been prescribed an antibiotic. Please take the antibiotic as prescribed. Please call the General Surgery clinic at [phone] with any questions or concerns. Prescriptions: No Action No Known Home Medications RF: 0 Visit Report Forms: [employer] Portal Stand-Alone Forms: [employer], Opioid Pain Management Krames/Other Patient Handouts: Cholecystectomy Laparoscopic Discharge Orders: Discharge Order (Routine); Ordered 11/27/18 Ordered By: Linda Hernandez Admission Data Admit Date/Time: 11/25/18 01:50 Attending Provider: Ranjit De Jesus Admit Provider: Ranjit De Jesus Primary Care Provider: Jordyn Garcia Service: Surgical Services Other Interventions: Discharge Summary Assessment (RN) Last Done: 11/27/18 12:54 Pending Studies at Discharge: Yes Studies:: Pathology report. DC Date/Time DO NOT enter until pt leaves facility: 11/27/18 13:40
== END 2018-11-27 13:40 | disposition home or self-care (01) | DRG 418 ==
LOC: ED 23:11 → 3W 11-25 01:50
DX: K81.0 Acute cholecystitis; I10 Essential (primary) hypertension; Z68.41 Body mass index [BMI] 40.0-44.9, adult; E66.3 Overweight; Z87.891 Personal history of nicotine dependence; Z91.02 Food additives allergy status; Z91.018 Allergy to other foods

== ENCOUNTER 2019-11-24 10:58 | Inpatient (IN) ==
[2019-11-24] MEDS ORDERED: ALBUT/IPRATROP 3MG/0.5MG NEB 3 ML VIAL NEB STA (12:19)
[2019-11-24] MEDS ORDERED: SODIUM CHLORIDE 0.9% 1000ML 1,000 ML IV ONE (12:21)
[2019-11-24 12:25] LABS: Basophils # (auto) 0.04 K/uL (0-0.2); Basophils % (auto) 0.4 %; Eosinophils # (auto) 0.55 K/uL (0-0.5); Eosinophils % (auto) 5.4 %; Hematocrit (blood only) 48.8 % (42-52); Hemoglobin 16.7 g/dL (14.0-18.0); Immature Granulocytes # (auto) 0.04 K/uL (0.00-0.02); Immature Granulocytes % (auto) 0.4 %; Lymphocytes % (auto) 30.6 %; Mean Corpuscular Hemoglobin 30.8 pg (25-34); Mean Corpuscular Hgb Conc 34.2 g/dL (32-36); Mean Platelet Volume 10.4 fL (7.4-10.4); Monocytes # (auto) 0.84 K/uL (0.11-0.59); Monocytes % (auto) 8.3 %; Neutrophils # (auto) 5.55 K/uL (1.4-6.5); Neutrophils % (auto) 54.9 %; Platelet Count 355 K/uL (130-400); RDW Coefficient of Variation 14.5 % (11.5-14.5); RDW Standard Deviation 47.5 fL (36.4-46.3); Red Blood Count 5.42 M/uL (4.7-6.1); White Blood Count 10.12 K/uL (4.8-10.8)
[2019-11-24 12:34] LABS: Albumin Level 3.4 gm/dl (3.4-5.0); BUN Creatinine Ratio 15.4 (10-20); Calcium 9.1 mg/dl (8.5-10.1); Est GFR (African American) 103.7; Est GFR (Non-African American) 89.5; Potassium 3.9 mmol/L (3.5-5.1)
[2019-11-24 12:36] LABS: Albumin Globulin Ratio 0.7 (0.9-2); Bilirubin,Total 0.3 mg/dl (0.2-1); Globulin 4.7 gm/dl (2.5-4.0); Total Protein 8.1 gm/dl (6.4-8.2)
--- NOTE | 2019-11-24 12:40 | XRay Report ---
XR chest 1V portable CLINICAL HISTORY: Cough. COMPARISON STUDY: Chest radiograph November 23, 2015. FINDINGS: Lung volumes are normal. Lungs are clear. There is no pneumothorax or pleural effusion. Car diac size is normal. Mediastinal contours are normal. There is no evidence for pulmonary edema. IMPRESSION: No acute cardiopulmonary findings. ACT 112: Negative or not required by law. Electronically signed by: Oscar Bryant M.D. 11/24/2019 12:39 PM
--- NOTE | 2019-11-24 12:59 | CT Scan Report ---
CT OF THE ABDOMEN AND PELVIS WITHOUT CONTRAST CLINICAL HISTORY: Upper abdominal pain. Evaluate for ventral hernia. COMPARISON STUDY: CT of the abdomen and pelvis November 25, 2018. TECHNIQUE: Axial images of the abdomen and pelvis were obtained without IV contrast. Images were revi ewed in the axial, sagittal, and coronal planes. Automated exposure control was utilized for the chelly dy. A dose lowering technique was utilized adhering to the principles of ALARA. FINDINGS: Lung bases are unremarkable. No pneumatosis, free air or portal venous gas is present. Fatt y infiltration of the liver is noted. There is no biliary ductal dilatation status post cholecystecto my. Glandular atrophy of the pancreas is unchanged. The spleen, adrenal glands and kidneys are unrema rkable. There is no hydronephrosis. There is no evidence for a bowel obstruction. The appendix is nor mal. Note is made of a fat-containing supraumbilical midline hernia. This hernia is moderate size. De fect within the anterior abdominal wall measures 5.4 x 3.8 cm in the transverse by craniocaudal dimen sions respectively. There is minimal associated omental infiltration. Possible small fat-containing b ilateral inguinal hernias are noted. There is no lymphadenopathy. There are no suspicious osseous les ions. IMPRESSION: 1. Moderate sized fat containing midline supraumbilical hernia. Minimal infiltration of the adjacent omentum. 2. Possible small fat-containing bilateral inguinal hernias. 3. Fatty infiltration of the liver. ACT 112: Negative or not required by law. Electronically signed by: Oscar Bryant M.D. 11/24/2019 12:58 PM
[2019-11-24] MEDS ORDERED: CEFAZOLIN 2000MG 2,000 MG/15 ML SYR IV ONE (13:50)
[2019-11-24] MEDS ORDERED: LIDOCAINE HCL 1% 20 ML VIAL ONE (13:55)
[2019-11-24] MEDS ORDERED: BACITRACIN OINT 15 GM TUBE ONE (13:55)
[2019-11-24] MEDS ORDERED: BUPIVACAINE 0.5 % 5 MG/1 ML MPF 30ML VIAL ONE (13:55)
--- NOTE | 2019-11-24 13:55 | Surgery Consultation ---
Date of Consultation November 24, 2019 Assessment & Plan (1) Incarcerated ventral hernia: pt is a 34 year-old male who presents with incarcerated ventral hernia. IMP: incarcerated ventral hernia, plan< I recommend to do open repair incarcerated ventral hernia, possible with mesh, D/W benefits, risks nad alternatives of the surgery, the risks - infection, bleeding, hernia recurrence, seroma, injury bowel, pt and his parient understood, they agree with the surgery, I answered all questions, History of Present Illness History of Present Illness CC: cough, abdominal pain HPI: pt is a 34 year-old male who presents to ER with 5 days history cough and abdominal pain, the pain is located at just above umbilical area with bulging, pain is 5/10, pt had laparoscopic cholecystectomy by other surgeon one year ago. the bulging area could not reduced. pt also have 5 days cough which is worse abdominal pain, pt denies fever, no nausea, no vomiting, pt had CT scan at ER diagnosis- incarcerated ventral hernia, Allergies Allergy/AdvReac Type Severity Reaction Status Date / Time pectin Allergy Unknown UNKNOWN Verified 11/24/19 12:26 Tea Allergy Unknown UNKNOWN- Uncoded 11/24/19 12:26 ALLERGIC TO PRESERVATIVES IN TEA Uncoded Nonscreenable Allergy Unknown PRESERVATIVES Uncoded 11/24/19 12:26 Allergen IN TEA AND JELLY Home Medications Home Medications Medication Instructions Recorded Confirmed Type multivitamin 1 tab PO DAILY 07/26/19 11/24/19 History diphenhydramine HCl [Benadryl] 50 mg PO DAILY PRN 11/24/19 11/24/19 History ibuprofen 800 mg PO Q6H PRN 11/24/19 11/24/19 History Patient History Social History Preferred Language: Hebrew Communication Ability: Effective Nurse Examiner Required: No Beliefs That Will Affect Care: Jainism Jainism Beliefs: Evangelical Current Living Situation: Alone Current Living Situation Comment: Housemate Other Information That Helps Us Care for You: No Feels Safe at Home: Yes Safety Concerns: Feels Safe At This Time Smoking Status: Never smoker Do You Dip or Chew Tobacco: No ; Second Hand Exposure: No ; Tobacco Cessation Education Requested by Patient: No Hx Alcohol Use: No Hx Substance Use: No Review of Systems Review of Systems: All systems reviewed & are unremarkable except as noted in HPI & below obesity Gastrointestinal: S/P laparosocpic cholecystectomy Psychiatric: suicidal ideation Physical Exam Constitutional: WD/WN, vitals as above well developed, well nourished and + obese ENMT: external ear and nose normal, oropharynx normal Neck: trachea midline, no thyromegaly Respiratory: normal respiratory effort, lungs clear to auscultation normal respiratory effort Cardiovascular: RRR, no murmur, no edema Rate/Rhythm: regular rate and regular rhythm Heart Sounds: normal S1 and normal S2 Gastrointestinal (Abdomen): tenderness with bulging just above umbilical area, skin with redness, size 4x5cm, no rebound pain, BS + Musculoskeletal: no cyanosis or clubbing, extremities motor strength 5/5 Skin: no rashes, warm and dry redness skin just above umbilical area, Neurologic: patellar DTR's 2+ bilat, sensation intact Psychiatric: A+Ox3, euthymic affect Orientation: alert and oriented x 3 pt denies suicidal ideation Results & Data Vital Signs (Past 12 Hours) Vital Signs Temp Pulse Pulse Resp BP BP Pulse Ox 11/24/19 12:58 100 H 18 144/93 H 96 11/24/19 12:26 18 99 11/24/19 12:23 96 11/24/19 11:09 36.7 C 123 H 18 150/106 H 94 Laboratory Results Abnormal lab results 11/24/19 11/24/19 Range/Units 11:45 11:45 RDW Std Deviation 47.5 H (36.4-46.3) fL Immature Gran # (Auto) 0.04 H (0.00-0.02) K/uL [place] # (Auto) 0.84 H (0.11-0.59) K/uL Eos # (Auto) 0.55 H (0-0.5) K/uL Chloride 109 H (98-107) mmol/L Carbon Dioxide 20 L (21-32) mmol/L Glucose 148 H (70-99) mg/dl AST 144 H (15-37) U/L ALT 216 H (12-78) U/L Alkaline Phosphatase 216 H (45-117) U/L Globulin 4.7 H (2.5-4.0) gm/dl Albumin/Globulin Ratio 0.7 L (0.9-2) Diagnostic Findings CT OF THE ABDOMEN AND PELVIS WITHOUT CONTRAST CLINICAL HISTORY: Upper abdominal pain. Evaluate for ventral hernia. COMPARISON STUDY: CT of the abdomen and pelvis November 25, 2018. TECHNIQUE: Axial images of the abdomen and pelvis were obtained without IV contrast. Images were reviewed in the axial, sagittal, and coronal planes. Automated exposure control was utilized for the study. A dose lowering technique was utilized adhering to the principles of ALARA. FINDINGS: Lung bases are unremarkable. No pneumatosis, free air or portal venous gas is present. Fatty infiltration of the liver is noted. There is no biliary ductal dilatation status post cholecystectomy. Glandular atrophy of the pancreas is unchanged. The spleen, adrenal glands and kidneys are unremarkable. There is no hydronephrosis. There is no evidence for a bowel obstruction. The appendix is normal. Note is made of a fat-containing supraumbilical midline hernia. This hernia is moderate size. Defect within the anterior abdominal wall measures 5.4 x 3.8 cm in the transverse by craniocaudal dimensions respectively. There is minimal associated omental infiltration. Possible small fat-containing bilateral inguinal hernias are noted. There is no lymphadenopathy. There are no suspicious osseous lesions. IMPRESSION: 1. Moderate sized fat containing midline supraumbilical hernia. Minimal infiltration of the adjacent omentum. 2. Possible small fat-containing bilateral inguinal hernias. 3. Fatty infiltration of the liver.
[2019-11-24] MEDS ORDERED: DEXAMETHASONE SOD INJ 4 MG/ML VIAL ONE (14:09)
[2019-11-24] MEDS ORDERED: ONDANSETRON INJ 2 MG/ML 2 ML VIAL ONE (14:09)
[2019-11-24] MEDS ORDERED: PROPOFOL IV EMULSION 10 MG/ML 20 ML VIAL IV ONE (14:09)
[2019-11-24] MEDS ORDERED: LIDOCAINE HCL 2% 2 ML VIAL/AMP(20MG/ML) INFIL ONE (14:09)
[2019-11-24] MEDS ORDERED: GLYCOPYRROLATE 0.2 MG/ML VIAL ONE (14:09)
[2019-11-24] MEDS ORDERED: fentaNYL citrate 100 MCG/2 ML VIAL ONE ×5 (14:09→15:48)
[2019-11-24] MEDS ORDERED: NEOSTIGMINE METHYLSULFATE 5 MG/5 ML SYR ONE (14:09)
[2019-11-24] MEDS ORDERED: MIDAZOLAM HCL 1 MG/ML 2ML VIAL ONE (14:10)
--- NOTE | 2019-11-24 14:10 | History & Physical Bridge Note ---
Date of Service November 24, 2019 History & Physical Bridge Note I have examined the patient, reviewed the History & Physical and in the interval since the performance of the History & Physical I have noted the following changes of clinical significance: no changes noted
--- NOTE | 2019-11-24 14:21 | Anesthesiology Consultation ---
Date of Service November 24, 2019 Assessment & Plan Chart Review Chart Review: Acceptable Risk for Surgery and Patient NOT seen in Pre Admission Testing Consults Requested none ASA [id number] Proposed Anesthesia Anesthesia Type: General Risk / Benefits Reviewed With: PT / POA / Parent / Guardian, Accepts Plan and Informed Consent Obtained History Surgery Operation Date: 11/24/19 14:15 Proposed Procedures p Ventral Hernia Repair - Renan Hutchins MD Height/Weight Height: 6 ft 3 in Weight: 148.4 kg Allergies Allergy/AdvReac Type Severity Reaction Status Date / Time pectin Allergy Unknown UNKNOWN Verified 11/24/19 12:26 Tea Allergy Unknown UNKNOWN- Uncoded 11/24/19 12:26 ALLERGIC TO PRESERVATIVES IN TEA Uncoded Nonscreenable Allergy Unknown PRESERVATIVES Uncoded 11/24/19 12:26 Allergen IN TEA AND JELLY Medications Home Medications Medication Instructions Recorded Confirmed Last Taken multivitamin 1 tab PO DAILY 07/26/19 11/24/19 Unknown diphenhydramine HCl [Benadryl] 50 mg PO DAILY PRN 11/24/19 11/24/19 11/24/19 ibuprofen 800 mg PO Q6H PRN 11/24/19 11/24/19 11/24/19 NPO Date Last Intake of Fluids: 11/24/19 Time Last Intake of Fluids: 02:30 Date Last Intake of Solids: 11/24/19 Time Last Intake of Solids: 02:30 Past Medical History Medical History (Updated 11/24/19 @ 14:18 by Ricardo Manzano MD) Anxiety Cholecystitis Depression HTN (hypertension) Hypertension Morbid obesity Exercise / Class Metabolic Activity II 4-5 Yardwork/Stairs/Walk up hill Past Family History Family History Other No significant family history Past Anesthesia History No Hx of Anesthesia Complications and No Family Hx of Anesthesia Complications History of PONV No Hx of PONV and No Hx of Motion Sickness Social History Smoking Status: Never smoker Do You Dip or Chew Tobacco: No Hx Alcohol Use: No Hx Substance Use: No substance use type: does not use Physical Exam Vital Signs Last Vital Signs Temp 36.7 C 11/24/19 11:09 Pulse 100 H 11/24/19 12:58 Resp 18 11/24/19 12:58 BP 144/93 H 11/24/19 12:58 Pulse Ox 96 11/24/19 12:58 Constitutional + morbidly obese ENMT Mouth: + dentition abnormality and + poor dentition Thyromental Distance: > or= 3.5 Finger Breadths Mallampati Class: III Neck normal visual inspection, trachea midline and + facial hair; neck extension not limited Respiratory normal respiratory effort Auscultation: lungs clear to auscultation bilaterally Cardiovascular Rate/Rhythm: regular rate and regular rhythm Heart Sounds: no murmur Musculoskeletal Spine: normal cervical ROM Extremities: full ROM of extremities Neurologic moves all extremities Motor/Sensory: no sensory deficit Psychiatric Orientation: alert and oriented x 3 Testing Laboratory Results 11/24/19 11:45 11/24/19 11:45 Electrocardiogram Date: 07/28/19 Findings: + NSR @ (@ 89 w/ sinus arrhythmia) Chest X-Ray Date: 11/24/19 Findings: + NAD
[2019-11-24] MEDS ORDERED: ePHEDrine sulfate 50 MG/ML AMP IV PRN ×2 (14:22→16:17)
[2019-11-24] MEDS ORDERED: HYDROmorphone INJ 1 MG/ML SYRINGE IV PRN ×2 (14:22→16:18)
[2019-11-24] MEDS ORDERED: ONDANSETRON INJ 2 MG/ML 2 ML VIAL IV PRN ×2 (14:22→16:18)
[2019-11-24] MEDS ORDERED: NALOXONE HCL 0.4 MG/1 ML VIAL/CARP IV PRN ×2 (14:22→16:17)
[2019-11-24] MEDS ORDERED: fentaNYL citrate 100 MCG/2 ML VIAL IV PRN (14:22)
[2019-11-24] MEDS ORDERED: PROMETHAZINE HCL 12.5 MG in SODIUM CHLORIDE 0.9% 50 ML IV PRN ×2 (14:22→16:18)
[2019-11-24] MEDS ORDERED: LABETALOL HCL IV 5 MG/ML 20ML IV PRN ×2 (14:22→16:17)
[2019-11-24] MEDS ORDERED: FLUMAZENIL 0.1 MG/1 ML 10 ML VIAL IV PRN ×2 (14:22→16:18)
[2019-11-24] MEDS ORDERED: ATROPINE SULFATE 0.1 MG/ML 10ML SYR IV PRN ×2 (14:22→16:18)
[2019-11-24] MEDS ORDERED: CEFAZOLIN 250 MG/ML 1 GM VIAL ONE ×3 (14:34→14:41)
[2019-11-24] MEDS ORDERED: CISATRACURIUM BESYLATE IV SOLN 2 MG/ML 10 ML VIAL IV ONE (14:41)
--- NOTE | 2019-11-24 15:31 | Post Operative Brief Note ---
Immediate Post Op Note v1 Date of Surgery November 24, 2019 Pre & Post Diagnosis Operation Date: 11/24/19 14:15 Pre-Op Diagnosis: incarcerated ventral hernia Post-Op Diagnosis: incarcerated ventral hernia I identified the patient and participated in the time-out.: Yes Procedure Operation Date: 11/24/19 14:15 Actual Procedures p Open Repair Incarcerated Ventral Hernia with mesh - Renan Hutchins MD Surgeon Renan Hutchins MD Bench Chemist rn surgical Estimated Blood Loss 10 Findings Consistent with Post-Op Diagnosis Fluids 1800ml Specimens hernia sac Anesthesia Type General Complications none Disposition Accompanied Patient To Recovery: Yes Disposition: Recovery Room
[2019-11-24] MEDS: fentaNYL citrate 100 MCG/2 ML VIAL IV PRN ×3 (15:54→16:04)
[2019-11-24] MEDS ORDERED: IBUPROFEN 800 MG TAB PO PRN (16:12)
--- NOTE | 2019-11-24 16:27 | Operative Report ---
DATE OF OPERATION: 11/24/2019 PREOPERATIVE DIAGNOSIS: Incarcerated ventral hernia. POSTOPERATIVE DIAGNOSIS: Incarcerated ventral hernia. OPERATION: Open repair of incarcerated ventral hernia with mesh. SURGEON: Renan Hutchins MD. ANESTHESIA: General. ESTIMATED BLOOD LOSS: About 10 mL. FINDINGS: Incarcerated ventral hernia. Hernia size about 3.5 x 3.5 cm. COMPLICATIONS: None. INDICATIONS FOR THE PROCEDURE: This is a 34-year-old gentleman who presented to the ED with 5 days' history of abdominal pain. The patient had a CT scan diagnosis of incarcerated ventral hernia. I recommended to do the open repair of incarcerated ventral hernia, possible mesh. I did talk to the patient and patient's parents about the benefit, risk, and alternate procedure. I indicated the risks may include but not limited to such as bleeding, infection, hernia recurrence, injury to the bowel, seroma. They understand. The patient signed informed consent and I answered all questions. DETAILS OF PROCEDURE: We brought the patient to the OR, put the patient in supine position. The patient received SCD on bilateral legs to prevent DVT. Also, patient received 2 grams of Ancef IV for prophylactic antibiotic. The patient received general anesthesia without difficulties. The abdomen was prepped and draped in routine sterile fashion after timeout, then reexamined the patient. The patient has a ventral hernia just above the umbilicus; the patient had a laparoscopic cholecystectomy incision in the past. I then made about 8 cm incision on the hernia site, then we removed the old scar and opened the subcutaneous layer, mobilized the hernia sac. Then, we opened the hernia sac. The hernia sac content is omental fat tissue. We completely returned all the omental sac tissue to abdominal cavity. Then, we found the patient had a hernia neck size about 3.5 x 3.5 cm, so I chose an 8 cm round mesh to repair the hernia. I used a 0 Ethibond, sutured mesh to the fascia interruptedly around the 360 degrees, the mesh seated nicely. Then, I tied each suture one by one and again the mesh seated nicely, no tension. Hemostasis was obtained. Then, I used 2-0 Vicryl to close the subcutaneous layer interruptedly, closed skin by using staple. Then, we put the dressing on. The hernia sac was sent to pathology. The patient tolerated the procedure well. All instrument, needle and sponge count were correct x2 at the end of the case. The patient was transferred to recovery room in stable condition. After the procedure, I did talk to the patient and parents about the OR finding and the procedure we did. I attest to the content of the Intraoperative Record and any orders documented therein. Any exceptions are noted below. FLORESD
--- NOTE | 2019-11-24 16:36 | Emergency Department Note ---
Entered by Fabienne Swift acting as a scribe for Rashard Kaplan MD ED Provider Note CHIEF COMPLAINT: flu-like symptoms HISTORY OF PRESENT ILLNESS: The patient is a 34 year old M who presents to the Emergency Room with complaints of worsening flu-like symptoms that started 5 days ago. The patient states that he is currently experiencing coughing, fevers, chills, abdominal pain, abdominal swelling, aching joints, slight constipation, and dry heaving. He notes that his coughing produces a foamy white mucous. He states that his upper abdominal swelling started after gallbladder surgery, 4 months ago. He adds that his coughing is worsening the size of his abdominal swelling. He notes that he lives with roommates who all have coughing symptoms. He denies that he is current smoker. Pt denies LOC, headache, diaphoresis, visual changes, neck pain, chest pain, back pain, melena, hematochezia, urinary symptoms, numbness, weakness, lymphadenopathy, rash, or other complaints. REVIEW OF SYSTEMS: See HPI for pertinent positives and negatives. A total of ten systems were reviewed and were otherwise negative. PMHx/PSHx: Anxiety, cholecystitis, depression, HTN SOCIAL HISTORY: Patient lives at home. Patient is not a smoker. PHYSICAL EXAM: GENERAL: Awake, alert, well-appearing, in no distress HENT: Normocephalic, atraumatic. Oropharynx unremarkable. EYES: PERRL. Normal conjunctiva. Sclera non-icteric. NECK: Inspection normal. Non-tender. Supple. No nuchal rigidity. FROM. No masses. RESPIRATORY: Clear to auscultation. No wheezes. No rales. Normal respiratory effort. CARDIAC: Tachycardic rate. Normal rhythm. No murmurs. No rubs. Extremities warm and well perfused. Pulses equal. No JVD. GI: Soft, non-distended. Tenderness to palpation of mid abdomen. No rebound or guarding. Tender mass in mid abdominal wall concerning for hernia. RECTAL: Deferred. MUSCULOSKELETAL: Atraumatic. Chest examination reveals no tenderness. The back is symmetrical on inspection without obvious abnormality. There is no CVA tenderness to palpation. No joint edema. LOWER EXTREMITIES: Calves are equal size bilaterally and non-tender. No edema. No discoloration. NEURO: Normal sensorium. No sensory or motor deficits noted. SKIN: No rash or jaundice noted. EMERGENCY DEPARTMENT COURSE: 1216: The patient was evaluated in room B10, and a complete history and physical examination were performed. 1315: I reviewed the patient's case with Dr. Hutchins, [facility] [place] [place]. He states that he is coming to see the patient. 1352: Dr. Hutchins states that he is taking the patient to the OR. MEDICAL DECISION MAKING: Triage Nursing notes reviewed and agree them. Additional history obtained from family. The patient's history was concerning for flulike symptoms and abdominal pain Differential diagnosis: Etiologies such as otitis, pharyngitis, pneumonia, influenza,meningitis, urinary tract infection, sepsis, bacteremia, viral syndrome, ileus, obstruction, enteritis, hernia, appendicitis, as well as others were entertained. Physical examination: As above. There was a tender midline hernia present. ER treatment provided: Saline hydration DuoNeb On reassessment the patient felt better. Diagnostics interpreted by me: The labs revealed an unremarkable CBC and chemistry panel. Flu test negative. Imaging studies: Chest x-ray negative for acute process. CT scan of the end of pelvis reveals an incarcerated fat-containing midline ventral hernia. Consultation: A consultation was placed with general surgeon on-call, Dr. Hutchins. The case was discussed and diagnostics were reviewed. The patient was evaluated in the ER for further treatment. IMPRESSION: Incarcerated ventral hernia, cough, bronchitis PLAN: Taken to OR by surgeon. The scribe's documentation has been prepared under my direction and personally reviewed by me in its entirety. I confirm that the note above accurately reflec ts all work, treatment, procedures, and medical decision making performed by me. Impression & Plan Incarcerated ventral hernia, Bronchitis, Cough Past Med/Surg History Medical History (Updated 11/24/19 @ 14:18 by Ricardo Manzano MD) Anxiety Cholecystitis Depression HTN (hypertension) Hypertension Morbid obesity Family History Other No significant family history Social History Preferred Language: Comoran Communication Ability: Effective Director Selection And Administration Required: No Beliefs That Will Affect Care: Taoist Taoist Beliefs: Uatsdin Current Living Situation: Alone Current Living Situation Comment: Housemate Other Information That Helps Us Care for You: No Feels Safe at Home: Yes Safety Concerns: Feels Safe At This Time Smoking Status: Never smoker Do You Dip or Chew Tobacco: No ; Second Hand Exposure: No ; Tobacco Cessation Education Requested by Patient: No Hx Alcohol Use: No Hx Substance Use: No Results & Data Vital Signs Vital Signs - 24 hr 11/24/19 11:09 11/24/19 12:23 11/24/19 12:26 Temperature 36.7 C Temperature Source Oral Pulse Rate 123 H Pulse Rate [Apical] Pulse Rhythm [Apical] Respiratory Rate 18 18 Respiratory Effort / Characteristics Non-Labored Non-Labored Spontaneous Respiratory Depth Normal Respiratory Pattern Blood Pressure 150/106 H Blood Pressure [Left Arm] Blood Pressure Mean 120 Blood Pressure Mean [Left Arm] Blood Pressure Position [Left Arm] Pulse Oximetry 94 96 99 Oxygen Delivery Method Room Air Room Air Room Air Oxygen Flow Rate Sepsis Recent Fever Within 48 Hours No Sepsis New/Unexplained Change in Mental Status No Sepsis Action Taken by Nursing No Action Required 11/24/19 12:58 11/24/19 15:44 11/24/19 15:50 Temperature 36.2 C L Temperature Source Temporal Artery Scan Pulse Rate Pulse Rate [Apical] 100 H 95 H 103 H Pulse Rhythm [Apical] Regular Regular Respiratory Rate 18 18 21 Respiratory Effort / Characteristics Non-Labored Spontaneous Non-Labored Spontaneous Respiratory Depth Normal Normal Respiratory Pattern Regular Regular Blood Pressure Blood Pressure [Left Arm] 144/93 H 125/73 117/73 Blood Pressure Mean Blood Pressure Mean [Left Arm] 110 90 87 Blood Pressure Position [Left Arm] Lying Lying Pulse Oximetry 96 94 95 Oxygen Delivery Method Room Air Oxymask Oxymask Oxygen Flow Rate 10 10 Sepsis Recent Fever Within 48 Hours Sepsis New/Unexplained Change in Mental Status Sepsis Action Taken by Nursing 11/24/19 16:00 11/24/19 16:10 11/24/19 16:20 Temperature 36.4 C L Temperature Source Temporal Artery Scan Pulse Rate Pulse Rate [Apical] 105 H 101 H 100 H Pulse Rhythm [Apical] Regular Regular Regular Respiratory Rate 30 H 18 16 Respiratory Effort / Characteristics Non-Labored Spontaneous Non-Labored Spontaneous Non-Labored Spontaneous Respiratory Depth Normal Normal Normal Respiratory Pattern Regular Regular Regular Blood Pressure Blood Pressure [Left Arm] 145/87 H 155/90 H 151/93 H Blood Pressure Mean Blood Pressure Mean [Left Arm] 106 111 112 Blood Pressure Position [Left Arm] Semi-fowlers Semi-fowlers Semi-fowlers Pulse Oximetry 94 92 93 Oxygen Delivery Method Oxymask Nasal Cannula Nasal Cannula Oxygen Flow Rate 10 4 4 Sepsis Recent Fever Within 48 Hours Sepsis New/Unexplained Change in Mental Status Sepsis Action Taken by Nursing 11/24/19 16:30 Temperature Temperature Source Pulse Rate Pulse Rate [Apical] 101 H Pulse Rhythm [Apical] Regular Respiratory Rate 14 Respiratory Effort / Characteristics Non-Labored Spontaneous Respiratory Depth Normal Respiratory Pattern Regular Blood Pressure Blood Pressure [Left Arm] 128/91 Blood Pressure Mean Blood Pressure Mean [Left Arm] 103 Blood Pressure Position [Left Arm] Semi-fowlers Pulse Oximetry 93 Oxygen Delivery Method Nasal Cannula Oxygen Flow Rate 4 Sepsis Recent Fever Within 48 Hours Sepsis New/Unexplained Change in Mental Status Sepsis Action Taken by Group Home Medications Current Medication List: was personally reviewed by me Laboratory Data Attestation: I reviewed the patient's lab results. Result diagrams: 11/24/19 11:45 11/24/19 11:45 Lab Results 11/24/19 11/24/19 11/24/19 Range/Units 11:45 11:45 11:55 WBC 10.12 (4.8-10.8) K/uL RBC 5.42 (4.7-6.1) M/uL Hgb 16.7 (14.0-18.0) g/dL Hct 48.8 (42-52) % MCV 90.0 (80-100) fL MCH 30.8 (25-34) pg MCHC 34.2 (32-36) g/dL RDW Std Deviation 47.5 H (36.4-46.3) fL RDW Coeff of Kai 14.5 (11.5-14.5) % Plt Count 355 (130-400) K/uL MPV 10.4 (7.4-10.4) fL Immature Gran % (Auto) 0.4 % Neut % (Auto) 54.9 % Lymph % (Auto) 30.6 % Amite % (Auto) 8.3 % Eos % (Auto) 5.4 % Baso % (Auto) 0.4 % Immature Gran # (Auto) 0.04 H (0.00-0.02) K/uL Neut # (Auto) 5.55 (1.4-6.5) K/uL Lymph # (Auto) 3.10 (1.2-3.4) K/uL Amite # (Auto) 0.84 H (0.11-0.59) K/uL Eos # (Auto) 0.55 H (0-0.5) K/uL Baso # (Auto) 0.04 (0-0.2) K/uL Sodium 138 (136-145) mmol/L Potassium 3.9 (3.5-5.1) mmol/L Chloride 109 H (98-107) mmol/L Carbon Dioxide 20 L (21-32) mmol/L Anion Gap 9.0 (3-11) BUN 17 (7-18) mg/dl Creatinine 1.07 (0.6-1.4) mg/dl Est Cr Clr Drug Dosing 150.0 ml/min Est GFR ( Amer) 103.7 Est GFR (Non-Af Amer) 89.5 BUN/Creatinine Ratio 15.4 (10-20) Glucose 148 H (70-99) mg/dl Calcium 9.1 (8.5-10.1) mg/dl Total Bilirubin 0.3 (0.2-1) mg/dl AST 144 H (15-37) U/L ALT 216 H (12-78) U/L Alkaline Phosphatase 216 H (45-117) U/L Total Protein 8.1 (6.4-8.2) gm/dl Albumin 3.4 (3.4-5.0) gm/dl Globulin 4.7 H (2.5-4.0) gm/dl Albumin/Globulin Ratio 0.7 L (0.9-2) Lipase 91 (73-393) U/L Influenza Type A Ag Neg for Influ A (Neg) Influenza Type B Ag Neg for Influ B (Neg) Administered Medications Fentanyl Citrate (Fentanyl Citrate) 25 mcg IV Q5M PRN PRN Reason: PACU Use Only-Pain Stop: 11/24/19 17:30 Last Admin: 11/24/19 16:04 Dose: 25 mcg Documented by: [id number] Admin: 11/24/19 15:59 Dose: 25 mcg Documented by: [id number] Admin: 11/24/19 15:54 Dose: 25 mcg Documented by: [id number] Discontinued Medications Albuterol (Duoneb) 3 ml NEB NOW STA Stop: 11/24/19 12:20 Last Admin: 11/24/19 12:25 Dose: 3 ml Documented by: [id number] Bacitracin (Bacitracin) Confirm Administered Dose 45 appln .ROUTE .[employer] Reservations-MED ONE Stop: 11/24/19 13:56 Last Admin: 11/24/19 14:47 Dose: 1 appln Documented by: [id number] Bupivacaine HCl (Marcaine 0.5% Mpf) Confirm Administered Dose 30 ml .ROUTE .STK- MED ONE Stop: 11/24/19 13:56 Last Admin: 11/24/19 14:46 Dose: 20 ml Documented by: [id number] Fentanyl Citrate (Fentanyl Citrate) 25 mcg IV Q5M PRN PRN Reason: PACU Use Only-Pain Stop: 11/24/19 19:22 Last Admin: 11/24/19 15:49 Dose: 25 mcg Documented by: [id number] Sodium Chloride (Nss 1000ml) 1,000 mls @ 999 mls/hr IV .Q1H1M ONE Stop: 11/24/19 13:21 Last Infusion: 11/24/19 13:39 Dose: 0 mls/hr Documented by: [id number] Admin: 11/24/19 12:31 Dose: 999 mls/hr Documented by: [id number] Lidocaine HCl (Xylocaine 1% (Local)) Confirm Administered Dose 20 ml .ROUTE . [employer] ONE Stop: 11/24/19 13:56 Last Admin: 11/24/19 14:47 Dose: 20 ml Documented by: [id number] Imaging Data Radiologist's Impression: Radiology results as stated below per my review and the radiologist's interpretation: XR chest 1V portable CLINICAL HISTORY: Cough. COMPARISON STUDY: Chest radiograph November 23, 2015. FINDINGS: Lung volumes are normal. Lungs are clear. There is no pneumothorax or pleural effusion. Cardiac size is normal. Mediastinal contours are normal. There is no evidence for pulmonary edema. IMPRESSION: No acute cardiopulmonary findings. ACT 112: Negative or not required by law. Electronically signed by: Oscar Bryant M.D. 11/24/2019 12:[address] OF THE ABDOMEN AND PELVIS WITHOUT CONTRAST CLINICAL HISTORY: Upper abdominal pain. Evaluate for ventral hernia. COMPARISON STUDY: CT of the abdomen and pelvis November 25, 2018. TECHNIQUE: Axial images of the abdomen and pelvis were obtained without IV contrast. Images were reviewed in the axial, sagittal, and coronal planes. Automated exposure control was utilized for the study. A dose lowering technique was utilized adhering to the principles of ALARA. FINDINGS: Lung bases are unremarkable. No pneumatosis, free air or portal venous gas is present. Fatty infiltration of the liver is noted. There is no biliary ductal dilatation status post cholecystectomy. Glandular atrophy of the pancreas is unchanged. The spleen, adrenal glands and kidneys are unremarkable. There is no hydronephrosis. There is no evidence for a bowel obstruction. The appendix is normal. Note is made of a fat-containing supraumbilical midline hernia. This h ernia is moderate size. Defect within the anterior abdominal wall measures 5.4 x 3.8 cm in the transverse by craniocaudal dimensions respectively. There is minimal associated omental infiltration. Possible small fat-containing bilateral inguinal hernias are noted. There is no lymphadenopathy. There are no suspicious osseous lesions. IMPRESSION: 1. Moderate sized fat containing midline supraumbilical hernia. Minimal infiltration of the adjacent omentum. 2. Possible small fat-containing bilateral inguinal hernias. 3. Fatty infiltration of the liver. ACT 112: Negative or not required by law. Electronically signed by: Oscar Bryant M.D. 11/24/2019 12:58 PM Blood Pressure Blood Pressure Findings: Elevated blood pressure Blood Pressure Disposition: further management by hospitalist Discharge Plan Visit Data Chief Complaint: Flu Like Symptoms Stated Complaint: COLD - FLU LIKE SYMPTOMS - SURGICAL SITE PAIN ED Provider: Rashard Kaplan Discharge Problem: Incarcerated ventral hernia, Bronchitis, Cough Patient Disposition: Being Evaluated by Surgeon Discharge Instructions Interventions: ED Discharge Assessment Last Done: 11/24/19 13:58 The scribe's documentation has been prepared under my direction and personally reviewed by me in its entirety. I confirm that the note above accurately reflects all work, treatment, procedures, and medical decision making performed by me.
[2019-11-24] MEDS: LACTATED RINGER'S 1,000 ML IV SCH (16:52)
[2019-11-24] MEDS: OXYCODONE/ACETAMINOPHEN 5mg/325mg TAB PO PRN ×2 (16:57→23:29)
--- NOTE | 2019-11-24 16:59 | Anesthesiology Progress Note ---
Date of Service November 24, 2019 Anesthesia Post Procedure Vital Signs Vital Signs: Temp Pulse Pulse Resp BP BP Pulse Ox 11/24/19 16:30 101 H 14 128/91 93 11/24/19 16:20 36.4 C L 100 H 16 151/93 H 93 11/24/19 16:10 101 H 18 155/90 H 92 11/24/19 16:00 105 H 30 H 145/87 H 94 11/24/19 15:50 103 H 21 117/73 95 11/24/19 15:44 36.2 C L 95 H 18 125/73 94 11/24/19 12:58 100 H 18 144/93 H 96 11/24/19 12:26 18 99 11/24/19 12:23 96 11/24/19 11:09 36.7 C 123 H 18 150/106 H 94 Pain Intensity Abdomen: Pain Intensity: 4 Transfer of Care Handoff Completed per policy Notes Mental Status: alert / awake / arousable Patient Amnestic to Procedure: Yes Nausea / Vomiting: adequately controlled Pain: adequately controlled Airway Patency, RR, SpO2: stable & adequate BP & HR: stable & adequate Hydration State: stable & adequate Anesthetic Complications: no major complications apparent
[2019-11-24] MEDS ORDERED: COUGH DROP (SUGAR FREE) LOZ 24 LOZ/1 BOX BUCCAL PRN (17:23)
--- NOTE | 2019-11-24 17:27 | Consultation ---
Date of Consultation November 24, 2019 Assessment & Plan (1) Cough: (2) Bronchitis: Pt with 5 day history congestion, white productive cough, sore throat, myalgias, fever/chills with reported improvement of symptoms Seen in ER today and was afebrile, 94% on RA in no respiratory distress. CXR: no acute changes Negative influenza swab -Mucinex -Cough drops prn -Encourage incentive spirometer -Wean oxygen s/p surgery (3) S/P repair of ventral hernia: Post op day# 0 S/P open repair incarcerated ventral hernia by Dr Hutchins -pain management per surgery -wound management per surgery -incentive spirometry -monitor H&H for acute blood loss anemia Disposition per primary service Pt reports does not follow with PCP routinely, in past seen by Dr Garcia. Pt was seen and care coordinated with Dr Darden. See addendum Thank you for this consultation. We will follow the patient with you during their hospital stay. You can reach a member of the [facility] Hospitalist Team 12/06 via pager @ [phone]. Supervising Physician Co-Signing Physician Notes Pt was seen and examined. Agreed with Gretta exam, assessment and plan. 34 y/o M with PMH anxiety, depression, obesity, S/p open repair of incarcerated ventral hernia with mesh today by Dr. Hutchins was asked by surgery to be seen in consultation for cough. Pt said that his cough improved. Complaints more of the SCD device that is causing more pain in his lower extremities. Currently denies any chest pain, palpitation, and shortness of breath. Will continue guafenesin and mentol prn. Continue incentive spirometry. Will titrate oxygen off as tolerated. Continue pain control as per surgery. MD Katalina History of Present Illness Requesting Physician: Dr Hutchins Reason for Consultation: Cough Attending Physician: Renan Hutchins MD History of Present Illness Pt is 34 y/o M with PMH anxiety, depression, obesity seen in medical consultation for cough. S/p open repair of incarcerated ventral hernia with mesh today by Dr. Hutchins. Patient reports 5 days ago started with cough productive of white-colored sputum, fever, chills, rhinorrhea, sore throat, myalgias and then started with abdominal pain, dry heaves. Patient reports his cough has decreased as well as his congestion and sore throat. He denies shortness of breath, wheezing, hemoptysis. Patient reports roommates with URI symptoms as well. Postop patient reports pain to abdomen with deep breathing otherwise denies shortness of breath. Patient was evaluated in ER this morning and had negative chest x-ray, and negative flu swab. Postop patient afebrile, currently on 3 L oxygen via nasal cannula with oxygen saturations 93%. Nursing staff report that patient has been unwilling to try using his incentive spirometer. Denies current nausea. Denies vomiting, TOLBERT, dizziness, syncope, vision changes, neck pain, CP, palpitations, paresthesias, weakness, extremity weakness, extremity edema, rashes, urinary symptoms. Allergies Allergy/AdvReac Type Severity Reaction Status Date / Time pectin Allergy Unknown UNKNOWN Verified 11/24/19 12:26 Tea Allergy Unknown UNKNOWN- Uncoded 11/24/19 12:26 ALLERGIC TO PRESERVATIVES IN TEA Uncoded Nonscreenable Allergy Unknown PRESERVATIVES Uncoded 11/24/19 12:26 Allergen IN TEA AND JELLY Home Medications Home Medications Medication Instructions Recorded Confirmed Type multivitamin 1 tab PO DAILY 07/26/19 11/24/19 History diphenhydramine HCl [Benadryl] 50 mg PO DAILY PRN 11/24/19 11/24/19 History ibuprofen 800 mg PO Q6H PRN 11/24/19 11/24/19 History Patient History Medical History Anxiety Cholecystitis Depression HTN (hypertension) Hypertension Morbid obesity Family History Other No significant family history Social History (Updated 11/24/19 @ 17:52 by Gretta Carter PA-C) Preferred Language: Uzbek Communication Ability: Effective Crutching Contractor Required: No Beliefs That Will Affect Care: Episcopal Episcopal Beliefs: Anabaptist Current Living Situation: Alone Current Living Situation Comment: Housemate Other Information That Helps Us Care for You: No Feels Safe at Home: Yes Safety Concerns: Feels Safe At This Time Smoking Status: Former smoker Do You Dip or Chew Tobacco: No ; Second Hand Exposure: No ; Tobacco Cessation Education Requested by Patient: No Hx Alcohol Use: No Hx Substance Use: No Review of Systems Review of Systems: All systems reviewed & are unremarkable except as noted in HPI & below Physical Exam Physical Exam: General: mild distress secondary to abdominal pain, obese Head: normocephalic, atraumatic Eyes: PERRL, EOM's intact, conjunctiva non-injected, anicteric ENT: normal inspection external ears, nose, mucous membranes moist Neck: supple, trachea midline Lungs: clear, no respiratory distress, no wheezing/rhonchi/rales CV: RRR, no murmur, no pretibial edema Abd: normal BS, soft, +surgical dressing to abdomen in place Ext: no cyanosis, no calf tenderness Neuro: A&O x 3, no focal deficits noted, normal affect Skin: warm, dry Results & Data Vital Signs (Past 12 Hours) Vital Signs Temp Pulse Pulse Pulse Pulse Resp BP 11/24/19 17:13 36.7 C 108 H 18 11/24/19 17:00 36.5 C 97 H 22 11/24/19 16:30 101 H 14 11/24/19 16:20 36.4 C L 100 H 16 11/24/19 16:10 101 H 18 11/24/19 16:00 105 H 30 H 11/24/19 15:50 103 H 21 11/24/19 15:44 36.2 C L 95 H 18 11/24/19 12:58 100 H 18 11/24/19 12:26 18 11/24/19 12:23 11/24/19 11:09 36.7 C 123 H 18 150/106 H BP Pulse Ox 11/24/19 17:13 134/81 93 11/24/19 17:00 117/67 92 11/24/19 16:30 128/91 93 11/24/19 16:20 151/93 H 93 11/24/19 16:10 155/90 H 92 11/24/19 16:00 145/87 H 94 11/24/19 15:50 117/73 95 11/24/19 15:44 125/73 94 11/24/19 12:58 144/93 H 96 11/24/19 12:26 99 11/24/19 12:23 96 11/24/19 11:09 94 Laboratory Results Short CBC 11/24/19 11/24/19 Range/Units 11:45 11:45 WBC 10.12 (4.8-10.8) K/uL Hgb 16.7 (14.0-18.0) g/dL Hct 48.8 (42-52) % Plt Count 355 (130-400) K/uL AST 144 H (15-37) U/L BMP 11/24/19 11:45 Sodium 138 Potassium 3.9 Chloride 109 H Carbon Dioxide 20 L BUN 17 Creatinine 1.07 Glucose 148 H Calcium 9.1 Liver Function 11/24/19 Range/Units 11:45 Total Bilirubin 0.3 (0.2-1) mg/dl AST 144 H (15-37) U/L ALT 216 H (12-78) U/L Alkaline Phosphatase 216 H (45-117) U/L Albumin 3.4 (3.4-5.0) gm/dl Diagnostic Findings CXR: IMPRESSION: No acute cardiopulmonary findings.
[2019-11-24] MEDS: CEFAZOLIN 1000MG 1,000 MG/7.5 ML SYR IV SCH (20:28)
[2019-11-24] MEDS: guaiFENesin 600 MG TABCR PO SCH (20:31)
[2019-11-24] MEDS: HYDROmorphone INJ 1 MG/ML SYRINGE IV PRN (20:31)
[2019-11-25] MEDS: HYDROmorphone INJ 1 MG/ML SYRINGE IV PRN ×2 (00:57→05:26)
[2019-11-25 01:52] LABS: Appearance Urine Clear (Clear); Bilirubin Urine Negative (Negative); Blood Urine Negative (Negative); Color Urine Yellow; Glucose Urine UA Negative (Negative); Ketones Urine Negative (Negative); Leukocyte Esterase Urine Negative (Negative); Nitrite Urine Negative (Negative); Protein Urine Negative (Negative); Specific Gravity Urine 1.014 (1.000-1.030); Urobilinogen Urine Negative (Negative); pH Urine 5.5 (4.5-7.5)
[2019-11-25] MEDS: LACTATED RINGER'S 1,000 ML IV SCH ×2 (03:37→16:35)
[2019-11-25] MEDS: OXYCODONE/ACETAMINOPHEN 5mg/325mg TAB PO PRN ×3 (03:37→13:24)
[2019-11-25] MEDS: LORazepam 0.5 MG/1 ML VIAL IV PRN ×2 (03:37→13:24)
[2019-11-25] MEDS: CEFAZOLIN 1000MG 1,000 MG/7.5 ML SYR IV SCH ×3 (03:54→21:10)
[2019-11-25 06:16] LABS: Basophils # (auto) 0.01 K/uL (0-0.2); Basophils % (auto) 0.1 %; Hematocrit (blood only) 45.4 % (42-52); Hemoglobin 15.3 g/dL (14.0-18.0); Immature Granulocytes # (auto) 0.04 K/uL (0.00-0.02); Immature Granulocytes % (auto) 0.3 %; Lymphocytes # (auto) 1.39 K/uL (1.2-3.4); Lymphocytes % (auto) 9.6 %; Mean Corpuscular Hemoglobin 29.8 pg (25-34); Mean Corpuscular Hgb Conc 33.7 g/dL (32-36); Mean Corpuscular Volume 88.5 fL (80-100); Mean Platelet Volume 10.1 fL (7.4-10.4); Monocytes # (auto) 0.61 K/uL (0.11-0.59); Monocytes % (auto) 4.2 %; Neutrophils # (auto) 12.38 K/uL (1.4-6.5); Neutrophils % (auto) 85.8 %; Platelet Count 360 K/uL (130-400); RDW Coefficient of Variation 14.3 % (11.5-14.5); RDW Standard Deviation 46.5 fL (36.4-46.3); Red Blood Count 5.13 M/uL (4.7-6.1); White Blood Count 14.43 K/uL (4.8-10.8)
[2019-11-25 06:52] LABS: Albumin Level 3.3 gm/dl (3.4-5.0); BUN Creatinine Ratio 13.1 (10-20); Calcium 9.4 mg/dl (8.5-10.1); Est GFR (African American) 103.7; Est GFR (Non-African American) 89.5
[2019-11-25 06:55] LABS: Albumin Globulin Ratio 0.8 (0.9-2); Bilirubin,Total 0.4 mg/dl (0.2-1); Globulin 4.3 gm/dl (2.5-4.0); Total Protein 7.6 gm/dl (6.4-8.2)
[2019-11-25] MEDS: MULTIVITAMIN TAB PO SCH (07:37)
[2019-11-25] MEDS: guaiFENesin 600 MG TABCR PO SCH ×2 (07:37→21:10)
--- NOTE | 2019-11-25 08:59 | Hospitalist Progress Note ---
Date of Service November 25, 2019 Assessment & Plan (1) Cough: (2) Bronchitis: Pt with 5 day history congestion, white productive cough, sore throat, myalgias, fever/chills with reported improvement of symptoms Initially afebrile, 94% on RA in no respiratory distress CXR: no acute changes Negative flu PCR -Symptoms improving. Still with occasional dry cough -Mucinex, cough drops prn, encourage incentive spirometer -Oxygen weaned s/p surgery (3) S/P repair of ventral hernia: Post op day# 1 s/p open repair incarcerated ventral hernia by Dr Hutchins -pain management per surgery -wound management per surgery -incentive spirometry -monitor H&H for acute blood loss anemia -tolerated clears for breakfast - was advanced to full but did not feel good enough -Refused miralax (4) Depression: H/o anxiety and depression. Not on home medication -Endorsing worsening depression to nursing staff -Routine psych consult placed Disposition per primary service Pt reports does not follow with PCP routinely, in past seen by Dr Garcia. Pt was seen and care coordinated with Dr. Alston. See addendum Thank you for this consultation. We will follow the patient with you during their hospital stay. You can reach a [facility] via pager @ [phone]. Supervising Physician Co-Signing Physician Notes Attending Addendum: care coordinated with AMRIT Haile please refer to her notes for full details, I agree with her notes patient seen and examined, records reviewed by myself as well on exam, patient seen resting in bed, comfortable states he feels better today, less coughing and sputum, denies shortness of breath Pain better controlled with tramadol no other symptoms VS noted and reviewed oriented x3 , not in distress, speaks in sentences with no effort nor accessory muscle use normal rate, regular rhythm, no murmurs clear breath sounds bilaterally non distended, soft, nontender, abdominal binder in place no bipedal edema, erythema, warmth no neuro deficits WBC 14 Hg 18 Crea 1.07 ASSESSMENT AND PLAN Acute bronchitis likely viral No fever, cough and sputum production improving Continue supportive care, Tez Jorge added Status post ventral hernia repair Tramadol ordered for pain, patient reports better control of pain with tramadol Further management per surgical service other diagnoses and plan of care as per AMRIT Alston MD Subjective Seen and examined in 381-1. Endorsing surgical site pain. Tolerated liquid diet without nausea or vomiting this morning but did not want to advance to solids. Cough is better. No sputum production. Sore throat and malaise have resolved. Denies fever, chills, lightheadedness, visual changes, chest pain, SOB, dysuria or diarrhea. Passing flatus but no BM. Review of Systems Review of Systems: At least ten systems reviewed and negative except as noted in the HPI. Physical Exam Physical Exam: General Appearance: WD/WN, vitals as above, NAD, sitting up in bed, conversing easily Head: normocephalic, atraumatic Eyes: normal inspection, PERRL, conjunctivae normal, anicteric sclerae ENT: external ear and nose normal, oropharynx normal Neck: trachea midline, no thyromegaly normal visual inspection Respiratory: lungs clear to auscultation, no wheeze, rales, rhonchi. Normal insp/exp effort, no accessory muscle use Cardiovascular: regular rate, rhythm, no murmur, normal peripheral pulses. Vessels: no JVD or carotid bruit Chest: normal inspection of chest Abdomen/GI: normal bowel sounds, soft, surgical site TTP, dressing in place on abdomen. Extremities/Musculoskelatal: no cyanosis or clubbing, extremities motor strength 5/5 Neurologic: PERRL, CN's II-XI intact bilaterally and moves all extremities Psychiatric: A+Ox3, agitated during exam Skin: no rashes, normal color, warm/dry Results & Data Vital Signs (Past 12 Hours) Vital Signs Temp Pulse Resp BP Pulse Ox 11/25/19 08:01 36.6 C 105 H 18 144/93 H 90 11/25/19 03:50 36.8 C 96 H 18 136/84 93 11/24/19 23:45 97 H 95 11/24/19 22:45 37 C 107 H 20 129/76 94 Laboratory Results Short CBC 11/24/19 11/25/19 Range/Units 11:45 06:00 WBC 10.12 14.43 H (4.8-10.8) K/uL Hgb 16.7 15.3 (14.0-18.0) g/dL Hct 48.8 45.4 (42-52) % Plt Count 355 360 (130-400) K/uL BMP 11/24/19 11/25/19 11:45 06:00 Sodium 138 134 L Potassium 3.9 4.0 Chloride 109 H 103 Carbon Dioxide 20 L 23 BUN 17 14 Creatinine 1.07 1.07 Glucose 148 H 215 H Calcium 9.1 9.4 Liver Function 11/24/19 11/25/19 Range/Units 11:45 06:00 Total Bilirubin 0.3 0.4 (0.2-1) mg/dl AST 144 H 113 H (15-37) U/L ALT 216 H 189 H (12-78) U/L Alkaline Phosphatase 216 H 201 H (45-117) U/L Albumin 3.4 3.3 L (3.4-5.0) gm/dl Urine 11/25/19 Range/Units 01:00 Urine Color Yellow Urine Appearance Clear (Clear) Urine pH 5.5 (4.5-7.5) Ur Specific [place] 1.014 (1.000-1.030) Urine Protein Negative (Negative) Urine Glucose (UA) Negative (Negative)
--- NOTE | 2019-11-25 09:50 | Surgery Progress Note ---
Date of Service F/U S/P open repair incarcerated ventral hernia with mesh, POD 1 pt is doing fine, some incision pain, no nausea, no vomiting, November 25, 2019 Assessment & Plan (1) Incarcerated ventral hernia: pt is a 34 year-old male who presents with incarcerated ventral hernia. IMP: incarcerated ventral hernia, plan< I recommend to do open repair incarcerated ventral hernia, possible with mesh, D/W benefits, risks and alternatives of the surgery, the risks - infection, bleeding, hernia recurrence, seroma, injury bowel, pt and his father understood, they agree with the surgery, I answered all questions, 11/25/2019 9:51AM POD 1 regular diet doing fine, possible go home tomorrow, Physical Exam Constitutional: WD/WN, vitals as above well developed, well nourished and + obese ENMT: external ear and nose normal, oropharynx normal Neck: trachea midline, no thyromegaly Respiratory: normal respiratory effort, lungs clear to auscultation normal respiratory effort Cardiovascular: RRR, no murmur, no edema Rate/Rhythm: regular rate and regular rhythm Heart Sounds: normal S1 and normal S2 Gastrointestinal (Abdomen): Percussion/Palpation: abdomen soft mild tenderness at incision site, no rebound pain, BS + incision intact, Musculoskeletal: no cyanosis or clubbing, extremities motor strength 5/5 Skin: no rashes, warm and dry Neurologic: patellar DTR's 2+ bilat, sensation intact Psychiatric: A+Ox3, euthymic affect Orientation: alert and oriented x 3 Results & Data Vital Signs (Past 12 Hours) Vital Signs Temp Pulse Resp BP Pulse Ox 11/25/19 08:01 36.6 C 105 H 18 144/93 H 90 11/25/19 03:50 36.8 C 96 H 18 136/84 93 11/24/19 23:45 97 H 95 11/24/19 22:45 37 C 107 H 20 129/76 94
[2019-11-25 10:34] LABS: Influenza A virus by PCR Neg for Influ A (Neg); Influenza B virus by PCR Neg for Influ B (Neg)
[2019-11-25] MEDS: POLYETHYLENE (MIRALAX) 17 GM PACK PO SCH (10:35)
--- NOTE | 2019-11-25 15:24 | Psychiatric Consultation ---
Date of Consultation November 25, 2019 Impression / Recommendations Impression 34 yo male self-requested psych eval as he is angry re: his pain control. He has a remote history of threats toward family and incarceration which suggest longstanding disruptive and/or antisocial behavior. Prn Ativan seems tolerated. No indication for inpatient psychiatric hospitalization at this time. There is no evidence of psychosis or major mood disorder interfering with his medical decision making. Risk Factors Assessment Do You Have Access To A Gun?: No Psych History Chief Complaint "somebody has got to do something for this pain". History of Present Illness Jeremy reports he regrets having his hernia surgery and doesn't feel that Percocet or Dilaudid is working. He threatened to leave AMA. He recognizes this is not in his best interest and has had some response to prn Ativan ordered by primary service. Consult is because "I asked to talk to somebody". He states that his mood has "tanked" since he was hospitalized. His report of past history isn't 100% consistent with [facility] records but he is superficially cooperative. He denies any recent vegetative symptoms of depression and alludes to previous rx with Vistaril which was ineffective. He denies any history of substance abuse but was incarcerated in the past. There is a [facility] eval on chart from 2014. He returned to ED stating he wanted to harm his family as they wouldn't let him back in the house and expressed SI in that context. He was hospitalized at the [facility] and apparently followed with Dr. Mar at [facility] for a period of time. He is clear that he doesn't want psych services, doesn't feel he needs them. He reiterates when his pain is not controlled he feels that he might throw his cell phone at somebody but again denies thoughts to harm himself or others. Past Psychiatric History Previous Psych History: ED notes show hospitalization for HI toward family in 9th grade with 302 to [facility], likely ODD Outpatient Services: none Previous Psych Admissions: at least 2 to the [facility] Do You Have Access To A Gun?: No History of Previous Suicide Attempt: No Past Medication Trials: Vistaril, Ativan, unsure of others Allergies Allergy/AdvReac Type Severity Reaction Status Date / Time pectin Allergy Unknown UNKNOWN Verified 11/24/19 12:26 Tea Allergy Unknown UNKNOWN- Uncoded 11/24/19 12:26 ALLERGIC TO PRESERVATIVES IN TEA Uncoded Nonscreenable Allergy Unknown PRESERVATIVES Uncoded 11/24/19 12:26 Allergen IN TEA AND JELLY Home Medications Home Medications Medication Instructions Recorded Confirmed Type multivitamin 1 tab PO DAILY 07/26/19 11/24/19 History diphenhydramine HCl [Benadryl] 50 mg PO DAILY PRN 11/24/19 11/24/19 History ibuprofen 800 mg PO Q6H PRN 11/24/19 11/24/19 History Substance Abuse History denied Personal History Living Arrangements: Home Beliefs That Will Affect Care: Sabianism History of Legal Problems: past Psychological Trauma History Comment: denied Patient History Medical History Anxiety Cholecystitis Depression HTN (hypertension) Hypertension Morbid obesity Family History Other No significant family history Social History (Updated 11/24/19 @ 17:52 by Gretta Carter PA-C) Preferred Language: Syriac Communication Ability: Effective 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 Required: No Beliefs That Will Affect Care: Sabianism Sabianism Beliefs: Buddhist Current Living Situation: Alone Current Living Situation Comment: Housemate Other Information That Helps Us Care for You: No Feels Safe at Home: Yes Safety Concerns: Feels Safe At This Time Smoking Status: Former smoker Do You Dip or Chew Tobacco: No ; Second Hand Exposure: No ; Tobacco Cessation Education Requested by Patient: No Hx Alcohol Use: No Hx Substance Use: No Physical Exam Psychiatric: Orientation: alert Apperance: appropriately groomed Eye Contact: good eye contact Motor Behavior: no abnormal motor movements Speech: normal rate/rhythm/volume of speech Affect: + irritable affect Mood: + irritable mood Thought Process: clear/coherent thought process Thought Content: reality based without delusions Suicidal Thoughts: denies suicidal thoughts Homicidal Thoughts: denies homicidal thoughts Hallucinations: no auditory hallucinations and no visual hallucinations Insight: + limited insight Judgement: + fair judgement Vital Signs (Past 24 Hours): Last Vital Signs Temp 36.6 C 11/25/19 15:15 Pulse 92 H 11/25/19 15:15 Resp 19 11/25/19 15:15 BP 131/72 11/25/19 15:15 Pulse Ox 92 11/25/19 15:15 Review of Systems All systems reviewed & are unremarkable except as noted in HPI & below Results & Data Medications Administered Guaifenesin (Mucinex) 1,200 mg PO Q12 DARRELL Stop: 12/24/19 20:59 Last Admin: 11/25/19 07:37 Dose: 1,200 mg Documented by: [id number] Admin: 11/24/19 20:31 Dose: 1,200 mg Documented by: [id number] Hydromorphone HCl (Dilaudid) 1 mg IV Q3H PRN PRN Reason: Pain Stop: 12/08/19 16:11 Last Admin: 11/25/19 05:26 Dose: 1 mg Documented by: [id number] Admin: 11/25/19 00:57 Dose: 1 mg Documented by: [id number] Admin: 11/24/19 20:31 Dose: 1 mg Documented by: [id number] Lactated Ringer's (Lr) 1,000 mls @ 80 mls/hr IV .[id number] DARRELL Stop: 12/24/19 16:29 Last Infusion: 11/25/19 13:34 Dose: 80 mls/hr Documented by: [id number] Admin: 11/25/19 03:37 Dose: 80 mls/hr Documented by: [id number] Infusion: 11/25/19 03:37 Dose: 80 mls/hr Documented by: [id number] Admin: 11/24/19 16:52 Dose: 80 mls/hr Documented by: [id number] Cefazolin Sodium (Ancef 1000mg) 1,000 mg in 7.5 mls @ 2.5 mls/min IV Q8H DARRELL Stop: 11/26/19 19:59 Last Admin: 11/25/19 12:01 Dose: Not Given Documented by: [id number] Admin: 11/25/19 03:54 Dose: 2.5 mls/min Documented by: [id number] Admin: 11/24/19 20:28 Dose: 2.5 mls/min Documented by: [id number] Lorazepam (Ativan) 0.5 mg in 1 mls @ 1 mls/min IV Q4H PRN PRN Reason: Anxiety/Agitation Stop: 12/25/19 01:03 Last Admin: 11/25/19 13:24 Dose: 1 mls/min Documented by: [id number] Admin: 11/25/19 03:37 Dose: 1 mls/min Documented by: [id number] Menthol (Nice) 1 jose e BUCCAL Q2H PRN PRN Reason: Sore Throat Stop: 12/24/19 17:22 Last Admin: 11/24/19 18:41 Dose: 1 jose e Documented by: [id number] Multivitamins (Multivitamin Tab) 1 tab PO DAILY DARRELL Stop: 12/25/19 08:59 Last Admin: 11/25/19 07:37 Dose: 1 tab Documented by: [id number] Oxycodone/Acetaminophen (Percocet 5mg/325mg) 1 tab PO Q4H PRN PRN Reason: Pain Stop: 12/08/19 16:11 Last Admin: 11/25/19 13:24 Dose: 1 tab Documented by: [id number] Admin: 11/25/19 07:37 Dose: 1 tab Documented by: [id number] Admin: 11/25/19 03:37 Dose: 1 tab Documented by: [id number] Admin: 11/24/19 23:29 Dose: 1 tab Documented by: [id number] Admin: 11/24/19 16:57 Dose: 1 tab Documented by: [id number] Polyethylene Glycol (Miralax Powder Packet) 17 gm PO DAILY DARRELL Stop: 12/25/19 09:59 Last Admin: 11/25/19 10:35 Dose: Not Given Documented by: [id number] Coding Level of Care Code 85371 [facility] Intl Hosp Care Lvl 2
[2019-11-25] MEDS: TRAMADOL HCL 50 MG TABLET PO PRN ×2 (16:36→21:13)
[2019-11-25] MEDS ORDERED: BENZONATATE 100 MG CAPSULE PO PRN (20:00)
[2019-11-26] MEDS ORDERED: SODIUM CHLORIDE 0.65% NA SOLN 45 ML (OCEAN) ONE
[2019-11-26] MEDS: LORazepam 0.5 MG/1 ML VIAL IV PRN (00:32)
[2019-11-26] MEDS: TRAMADOL HCL 50 MG TABLET PO PRN ×3 (03:06→11:21)
[2019-11-26] MEDS: CEFAZOLIN 1000MG 1,000 MG/7.5 ML SYR IV SCH ×2 (04:29→11:21)
[2019-11-26] MEDS: LACTATED RINGER'S 1,000 ML IV SCH (05:19)
[2019-11-26 07:11] LABS: Hemoglobin 14.6 g/dL (14.0-18.0); Mean Corpuscular Hemoglobin 29.6 pg (25-34); Mean Corpuscular Hgb Conc 33.2 g/dL (32-36); Mean Corpuscular Volume 89.2 fL (80-100); Mean Platelet Volume 10.1 fL (7.4-10.4); Platelet Count 330 K/uL (130-400); RDW Coefficient of Variation 14.6 % (11.5-14.5); RDW Standard Deviation 47.5 fL (36.4-46.3); Red Blood Count 4.93 M/uL (4.7-6.1); White Blood Count 15.27 K/uL (4.8-10.8)
[2019-11-26] MEDS: POLYETHYLENE (MIRALAX) 17 GM PACK PO SCH (07:39)
[2019-11-26] MEDS: guaiFENesin 600 MG TABCR PO SCH (07:39)
[2019-11-26] MEDS: MULTIVITAMIN TAB PO SCH (07:39)
[2019-11-26 07:43] LABS: BUN Creatinine Ratio 15.3 (10-20); Calcium 8.5 mg/dl (8.5-10.1); Creatinine Clr Calc Pharmacy 178.3 ml/min; Est GFR (African American) 127.8; Est GFR (Non-African American) 110.3; Potassium 3.6 mmol/L (3.5-5.1)
--- NOTE | 2019-11-26 11:35 | Hospitalist Progress Note ---
Date of Service November 26, 2019 Assessment & Plan (1) Cough: -Hospitalist service was consulted for cough after patient had ventral hernia repair (2) Bronchitis: -cough from bronchitis -(Pt with 5 day history congestion, white productive cough, sore throat, myalgias, fever/chills with reported improvement of symptoms Initially afebrile, 94% on RA in no respiratory distress CXR: no acute changes Negative flu PCR ) -Mucinex, cough drops prn, encourage incentive spirometer, no indications for respiratory antibiotics at this time (3) S/P repair of ventral hernia: -Patient under general surgery primary service because of pre-op daignosis of incarcerated ventral hernia -Operation Date: 11/24/19 of Open Repair Incarcerated Ventral Hernia with mesh by Dr. Renan Hutchins MD -management if abdominal dressing and pain control as per general surgery service (4) Depression: history of anxiety and history of depression. -Psychiatry evaluation 11/25/2019: "34 yo male self-requested psych eval as he is angry re: his pain control. He has a remote history of threats toward family and incarceration which suggest longstanding disruptive and/or antisocial behavior. Prn Ativan seems tolerated. No indication for inpatient psychiatric hospitalization at this time. There is no evidence of psychosis or major mood disorder interfering with his medical decision making." -11/26/2019: patient tolerating abdominal discomfort and is calm and cooperative with medical doctor Subjective Patient seen and examined by hospitalist medical doctor. Patient had IV fluids of lactated ringer's running. Patient is able to eat and take fluids independently. Patient reports he is is passing flatus and able to ambulate to bathroom Review of Systems Review of Systems: All systems reviewed & are unremarkable except as noted in HPI & below Physical Exam Constitutional: cooperative Eyes: PERRL, conjunctivae normal, anicteric sclerae EOM intact bilaterally ENMT: external ear and nose normal, oropharynx normal Neck: trachea midline, no thyromegaly normal visual inspection Respiratory: normal respiratory effort, lungs clear to auscultation Cardiovascular: Rate/Rhythm: regular rate and regular rhythm Gastrointestinal (Abdomen): abdominal dressing intact Musculoskeletal: Head/Neck/Chest: normocephalic and head atraumatic Neurologic: PERRL, EOMI, accommodation nl, no face palsy, no dysarthria CN's II-XI intact bilaterally Psychiatric: Orientation: alert and oriented x 3 Results & Data Vital Signs (Past 12 Hours) Vital Signs Temp Pulse Pulse Resp BP Pulse Ox 11/26/19 07:28 36.5 C 105 H 20 138/85 92 11/25/19 23:35 36.5 C 99 H 16 129/81 92
--- NOTE | 2019-11-26 11:50 | Surgery Progress Note ---
Date of Service November 26, 2019 Assessment & Plan (1) Incarcerated ventral hernia: POD # 2 s/p repair of incarcerated ventral hernia with mesh -leukocytosis of 15k (14k yesterday), likely postop setting, afebrile - tachycardic likely secondary to pain, better controlled today with PO Trama dol - no n/v, passing flatus -adequate urine output Plan: Regular diet again for lunch , if tolerates and pain still controlled with PO Tramadol okay for discharge home. Discharge instructions reviewed with patient F/u surgical office in 2 weeks Rx for Tramadol will be sent to pharmacy Dr. Hutchins has seen patient, agrees with above. Subjective was having abdominal pain and discomfort with binder, had to take off this morning tolerated some of his regular breakfast, no n/v pain better controlled with Tramadol Had IV Ativan last night per nurse however no IV pain medication today Ambulated hallway passing gas, no bowel movement Physical Exam Constitutional: WD/WN, vitals as above + morbidly obese; no acute distress Respiratory: normal respiratory effort; no respiratory distress and no labored breathing Gastrointestinal (Abdomen): Inspection/Auscultation: abdomen normal to inspection and + abdomen distended (mild); + abnormal bowel sounds (hypoactive) Percussion/Palpation: + abdomen tender (upper abdomen and superior aspect of incision) and abdomen soft; no guarding and abdomen not rigid Skin: no rashes, warm and dry + incision (covered with dressing, clean/dry no spotting) Psychiatric: Orientation: alert and oriented x 3 Affect: + flat affect Results & Data Vital Signs (Past 12 Hours) Vital Signs Temp Pulse Resp BP Pulse Ox 11/26/19 07:28 36.5 C 105 H 20 138/85 92 Laboratory Results 11/26/19 11/26/19 Range/Units 06:34 06:34 WBC 15.27 H (4.8-10.8) K/uL RBC 4.93 (4.7-6.1) M/uL Hgb 14.6 (14.0-18.0) g/dL Hct 44.0 (42-52) % MCV 89.2 (80-100) fL MCH 29.6 (25-34) pg MCHC 33.2 (32-36) g/dL RDW Std Deviation 47.5 H (36.4-46.3) fL RDW Coeff of Kai 14.6 H (11.5-14.5) % Plt Count 330 (130-400) K/uL MPV 10.1 (7.4-10.4) fL Sodium 137 (136-145) mmol/L Potassium 3.6 (3.5-5.1) mmol/L Chloride 107 (98-107) mmol/L Carbon Dioxide 26 (21-32) mmol/L Anion Gap 4.0 (3-11) BUN 14 (7-18) mg/dl Creatinine 0.90 (0.6-1.4) mg/dl Est Cr Clr Drug Dosing 178.3 ml/min Est GFR ( Amer) 127.8 Est GFR (Non-Af Amer) 110.3 BUN/Creatinine Ratio 15.3 (10-20) Glucose 100 H (70-99) mg/dl Calcium 8.5 (8.5-10.1) mg/dl
--- NOTE | 2019-11-27 14:48 | Discharge Summary ---
ADMITTING DIAGNOSIS: Incarcerated ventral hernia. DISCHARGE DIAGNOSIS: Same. OPERATION: Open repair of incarcerated ventral hernia with mesh. SURGEON: Renan Hutchins MD DETAILS OF DISCHARGE SUMMARY: This is a 74-year-old gentleman who presented to ED with an incarcerated ventral hernia and patient required to do open repair of incarcerated ventral hernia, possible with mesh in the OR. We did find the patient had an incarcerated ventral hernia. We did a hernia repair with mesh. The patient tolerated the procedure well. After procedure, the patient transferred to recovery room in stable condition and then patient transferred to the regular floor. The patient is doing fine, walking around and control of incision pain. The patient tolerated the diet and no nausea, no vomiting and no fever. PHYSICAL EXAMINATION: VITAL SIGNS: Temperature is 36.5. The respiratory rate 20, heart rate of 95-100 and the blood pressure 138/85. O2 saturation 92% on room air. GENERAL: The patient is alert, awake, oriented x3. HEENT: With normal limitation. NEUROLOGIC: Intact. NECK: No JVD. CHEST: Bilateral lung sounds clear. HEART: Normal S1, S2. No murmurs. ABDOMEN: Soft, nondistended. Incision intact. No redness, no drainage. Bowel sounds positive. No significant tenderness, rebound or pain. EXTREMITIES: No edema. PLAN: The patient wanted to go home. We gave the patient postop care instruction. The patient understands and I will follow up with the patient in 1 week.
== END 2019-11-26 14:41 | disposition home or self-care (01) | DRG 354 ==
LOC: ED 10:58 → 3N 14:03 → OR 14:03 → 3N 16:14

== ENCOUNTER 2021-06-01 14:58 | Inpatient (IN) ==
[2021-06-01] MEDS ORDERED: fentaNYL citrate 100 MCG/2 ML VIAL IV STA (15:07)
[2021-06-01] MEDS ORDERED: ONDANSETRON INJ 2 MG/ML 2 ML VIAL IV STA (15:07)
--- NOTE | 2021-06-01 15:12 | Emergency Department Note ---
History of Present Illness General Chief complaint: Chest Pain Time Seen by Provider: 06/01/21 15:01 Source: patient History of Present Illness Provider complaint: Chest pain Onset (ago): hour(s) Location: chest Radiation: non-radiation Severity: severe Pain Consistency: + constant Quality: + other (Viselike pain) Relieved By: + none Associated symptoms: + shortness of breath; no cough, no fever/chills and no nausea/vomiting This is a 35-year-old male with a history of hypertension presenting with chest pain while walking to the bus stop. The patient started having pain in his epigastric region which then radiated into his central chest. He describes it as a vice-like pain. No alleviating factors. His pain does not radiate to his neck, back or extremities. He does have shortness of breath associated with it. He denies any fever, cough or cold symptoms, vomiting, diarrhea or urinary symp toms. He does have a strong family history of heart disease. He had similar pain several months ago while he was in [place]. He was seen at a hospital there and had a negative stress test and was told he had some scar tissue in his lungs. He denies any immobilization. He states he does not have a gallbladder. He does state that he has had pain to his right great toe for the past 2 days and that it has been draining some fluid. He thinks he might have an ingrown toenail. He also states he has a history of diabetes and was diagnosed sometime this spring. He has not been on medications because he cannot afford them. Home Medications Medication Instructions Recorded Confirmed Type diphenhydramine HCl [Benadryl] 50 mg PO DAILY PRN 11/24/19 06/01/21 History Allergies Allergy/AdvReac Type Severity Reaction Status Date / Time pectin Allergy Unknown UNKNOWN Verified 06/01/21 15:52 POLLEN Allergy Intermediate SNEEZING, Uncoded 06/01/21 15:54 CONGESTION Tea Allergy Unknown UNKNOWN- Uncoded 06/01/21 15:52 ALLERGIC TO PRESERVATIVES IN TEA Uncoded Nonscreenable Allergy Unknown PRESERVATIVES Uncoded 06/01/21 15:52 Allergen IN TEA AND JELLY Past Med/Surg History Medical History (Updated 06/01/21 @ 17:56 by Frank Umaña MD) Anxiety Cholecystitis Depression HTN (hypertension) Hypertension Morbid obesity Family History Other No significant family history Social History Smoking Status: Never smoker Second Hand Exposure: No; Hx Alcohol Use: No Hx Substance Use: No Preferred Language: Hungarian Communication Ability: Effective Fan Mail Editor Required: No Beliefs That Will Affect Care: Faith Faith Beliefs: Lutheran Current Living Situation: Alone Current Living Situation Comment: Housemate Feels Safe at Home: Yes Assistive Devices: Cane Review of Systems See HPI for pertinent positives & negatives. and A total of 10 systems reviewed and were otherwise negative Physical Exam Vital Signs Vital Signs - 24 hr 06/01/21 15:00 06/01/21 15:08 06/01/21 15:30 Temperature 36.7 C Temperature Source Oral Pulse Rate 123 H 117 H 113 H Pulse Rate from SpO2 Sensor 119 H 115 H Pulse Rhythm Regular Pulse Strength Normal Respiratory Rate 22 14 23 Respiratory Effort / Characteristics Non-Labored Spontaneous Respiratory Depth Normal Respiratory Pattern Regular Blood Pressure 109/80 109/80 103/73 Blood Pressure Mean 89 89 83 Blood Pressure Position Sitting Pulse Oximetry 93 93 93 Oxygen Delivery Method Room Air Sepsis Recent Fever Within 48 Hours No Sepsis New/Unexplained Change in Mental Status N/A Sepsis Action Taken by Nursing Physician Notified 06/01/21 16:00 06/01/21 16:20 06/01/21 16:30 Temperature Temperature Source Pulse Rate 114 H 112 H 107 H Pulse Rate from SpO2 Sensor 117 H 111 H 104 H Pulse Rhythm Pulse Strength Respiratory Rate 19 21 18 Respiratory Effort / Characteristics Respiratory Depth Respiratory Pattern Blood Pressure 106/76 98/78 L 120/69 Blood Pressure Mean 86 84 86 Blood Pressure Position Pulse Oximetry 93 96 96 Oxygen Delivery Method Sepsis Recent Fever Within 48 Hours Sepsis New/Unexplained Change in Mental Status Sepsis Action Taken by Nursing 06/01/21 17:00 06/01/21 17:31 Temperature Temperature Source Pulse Rate 109 H 101 H Pulse Rate from SpO2 Sensor 105 H 97 H Pulse Rhythm Pulse Strength Respiratory Rate 18 17 Respiratory Effort / Characteristics Respiratory Depth Respiratory Pattern Blood Pressure 114/89 112/83 Blood Pressure Mean 97 92 Blood Pressure Position Pulse Oximetry 95 94 Oxygen Delivery Method Sepsis Recent Fever Within 48 Hours Sepsis New/Unexplained Change in Mental Status Sepsis Action Taken by Nursing Constitutional: Vital signs reviewed. Eyes: Pupils are equal round reactive to light. Conjunctiva are noninjected. ENT: Pharynx is clear without erythema or exudate. Mucous membranes are moist. Neck supple without meningeal signs. Respiratory: Clear to auscultation bilaterally. Breath sounds are equal bilaterally. Cardiovascular: Tachycardic. Heart rate 117. GI: Soft, nondistended with tenderness in the epigastric region. No guarding. Bowel sounds are present. Musculoskeletal: No peripheral edema. He has tenderness to the medial aspect of the right great toe nailbed. No drainage is noted. No tenderness proximally. Integumentary: No cyanosis. or jaundice. Neurological: The patient is awake and alert. No focal deficits. Psychiatric: Anxious. Course Administered Medications Discontinued Medications Fentanyl Citrate (Fentanyl Citrate 100 Mcg/2 Ml Vial) 50 mcg IV NOW STA Stop: 06/01/21 15:08 Last Admin: 06/01/21 15:34 Dose: 50 mcg Documented by: [id number] Sodium Chloride (Nss 1000ml) 1,000 mls @ 999 mls/hr IV .Q1H1M ONE Stop: 06/01/21 17:06 Last Infusion: 06/01/21 17:50 Dose: 0 mls/hr Documented by: [id number] Admin: 06/01/21 16:10 Dose: 999 mls/hr Documented by: [id number] Cefazolin Sodium (Ancef 2000mg) 2,000 mg in 15 mls @ 3.75 mls/min IV NOW STA Stop: 06/01/21 17:03 Last Admin: 06/01/21 17:49 Dose: 3.75 mls/min Documented by: [id number] Ondansetron HCl (Ondansetron Inj 2 Mg/Ml 2 Ml Vial) 4 mg IV NOW STA Stop: 06/01/21 15:08 Last Admin: 06/01/21 15:34 Dose: 4 mg Documented by: [id number] Medical Decision Making Differential Diagnosis Choledocholithiasis, peptic ulcer disease, visceral injury, DE, PE, anxiety, par onychia, DKA Medical Records Attestation: I reviewed the patient's medical records. I did perform a limited focused review of portions of the patient's old chart on the electronic medical record. The patient had ventral hernia repair last November. Home Medications Current Medication List: was personally reviewed by me Laboratory Data Attestation: I reviewed the patient's lab results. Result diagrams: 06/01/21 15:00 06/01/21 15:00 Lab Results 06/01/21 06/01/21 06/01/21 Range/Units 15:00 15:00 15:00 WBC 11.58 H (4.8-10.8) K/uL RBC 5.20 (4.7-6.1) M/uL Hgb 15.2 (14.0-18.0) g/dL Hct 44.7 (42-52) % MCV 86.0 (80-100) fL MCH 29.2 (25-34) pg MCHC 34.0 (32-36) g/dL RDW Std Deviation 46.1 (36.4-46.3) fL RDW Coeff of Kai 14.7 H (11.5-14.5) % Plt Count 437 H (130-400) K/uL MPV 9.9 (7.4-10.4) fL Immature Gran % (Auto) 0.3 % Neut % (Auto) 62.8 % Lymph % (Auto) 29.4 % Harper % (Auto) 5.2 % Eos % (Auto) 2.0 % Baso % (Auto) 0.3 % Neut # (Auto) 7.28 H (1.4-6.5) K/uL Lymph # (Auto) 3.40 (1.2-3.4) K/uL Harper # (Auto) 0.60 H (0.11-0.59) K/uL Eos # (Auto) 0.23 (0-0.5) K/uL Baso # (Auto) 0.03 (0-0.2) K/uL Immature Gran # (Auto) 0.04 H (0.00-0.02) K/uL APTT 28.9 (21.0-31.0) Seconds PTT Ratio 1.1 D-Dimer < 190 (0-500) ug/L FEU VBG pH (7.36-7.41) VBG pCO2 (38-50) mmHg VBG pO2 mmHg VBG HCO3 mmol/L VBG O2 Saturation % VBG Base Excess mEq/L Barometric Pressure mm/Hg Sodium 137 (136-145) mmol/L Potassium 3.4 L (3.5-5.1) mmol/L Chloride 107 (98-107) mmol/L Carbon Dioxide 17 L (21-32) mmol/L Anion Gap 13.0 H (3-11) BUN 22 H (7-18) mg/dl Creatinine 1.78 H (0.6-1.4) mg/dl Est Cr Clr Drug Dosing 85.1 ml/min Est GFR ( Amer) 55.6 ml/min Est GFR (Non-Af Amer) 48.0 ml/min BUN/Creatinine Ratio 12.4 (10-20) Glucose 252 H (70-99) mg/dl Calcium 9.1 (8.5-10.1) mg/dl Total Bilirubin 0.8 (0.2-1) mg/dl AST 25 (15-37) U/L ALT 56 (12-78) U/L Alkaline Phosphatase 183 H (45-117) U/L Troponin I < 0.015 (0-0.045) ng/ml Total Protein 8.1 (6.4-8.2) gm/dl Albumin 3.9 (3.4-5.0) gm/dl Globulin 4.2 H (2.5-4.0) gm/dl Albumin/Globulin Ratio 0.9 (0.9-2) Lipase 88 (73-393) U/L Beta-Hydroxybutyric Acd (0.2-2.81) mg/dl 06/01/21 06/01/21 Range/Units 17:17 17:17 WBC (4.8-10.8) K/uL RBC (4.7-6.1) M/uL Hgb (14.0-18.0) g/dL Hct (42-52) % MCV (80-100) fL MCH (25-34) pg MCHC (32-36) g/dL RDW Std Deviation (36.4-46.3) fL RDW Coeff of Kai (11.5-14.5) % Plt Count (130-400) K/uL MPV (7.4-10.4) fL Immature Gran % (Auto) % Neut % (Auto) % Lymph % (Auto) % Harper % (Auto) % Eos % (Auto) % Baso % (Auto) % Neut # (Auto) (1.4-6.5) K/uL Lymph # (Auto) (1.2-3.4) K/uL Harper # (Auto) (0.11-0.59) K/uL Eos # (Auto) (0-0.5) K/uL Baso # (Auto) (0-0.2) K/uL Immature Gran # (Auto) (0.00-0.02) K/uL APTT (21.0-31.0) Seconds PTT Ratio D-Dimer (0-500) ug/L FEU VBG pH 7.40 (7.36-7.41) VBG pCO2 42 (38-50) mmHg VBG pO2 29 mmHg VBG HCO3 25 mmol/L VBG O2 Saturation < 60.0 % VBG Base Excess 0.6 mEq/L Barometric Pressure 734.2 mm/Hg Sodium (136-145) mmol/L Potassium (3.5-5.1) mmol/L Chloride (98-107) mmol/L Carbon Dioxide (21-32) mmol/L Anion Gap (3-11) BUN (7-18) mg/dl Creatinine (0.6-1.4) mg/dl Est Cr Clr Drug Dosing ml/min Est GFR ( Amer) ml/min Est GFR (Non-Af Amer) ml/min BUN/Creatinine Ratio (10-20) Glucose (70-99) mg/dl Calcium (8.5-10.1) mg/dl Total Bilirubin (0.2-1) mg/dl AST (15-37) U/L ALT (12-78) U/L Alkaline Phosphatase (45-117) U/L Troponin I (0-0.045) ng/ml Total Protein (6.4-8.2) gm/dl Albumin (3.4-5.0) gm/dl Globulin (2.5-4.0) gm/dl Albumin/Globulin Ratio (0.9-2) Lipase (73-393) U/L Beta-Hydroxybutyric Acd 0.68 (0.2-2.81) mg/dl Imaging Data Radiologist's Impression: Abdomen/Pelvis CT 06/01/21 15:07 CT SCAN OF THE ABDOMEN AND PELVIS WITHOUT CONTRAST CLINICAL HISTORY: epigastric pain eval for free air COMPARISON STUDY: 11/24/2019 TECHNIQUE: CT scan of the abdomen and pelvis was performed from the lung bases to the proximal femurs. Images are reviewed in the axial, sagittal, and coronal planes. IV contrast was not administered for this examination. A dose lowering technique was utilized adhering to the principles of ALARA. CT DOSE: 1596.37 mGy.cm FINDINGS: Lower chest: There is a calcified granuloma within the left lower lobe. There is no significant pleural fluid. Liver: There is hepatic steatosis. No focal masses are visualized on this noncontrast study. Gallbladder: Surgically absent Spleen: Top normal in size Pancreas: There is mild fatty atrophy the pancreas. No masses are visualized in this noncontrast study Adrenal glands: Unremarkable. Kidneys: No renal, ureteral, or bladder calculi are visualized. Bowel: There are no transition zones indicate bowel obstruction. There is no evidence of acute diverticulitis. There is mild appendiceal thickening but no evidence of periappendiceal inflammatory change Peritoneum: There is no intraperitoneal free air or abdominal ascites. There is interval repair of a supraumbilical fat-containing ventral hernia with an apparent-. There is anterior bulging of the mesh. Vasculature: The abdominal aorta is normal in course and caliber. Adenopathy: None. Pelvic viscera: The bladder, and pelvic viscera are unremarkable. Skeletal structures: No destructive osseous lesions are seen. IMPRESSION: 1. No acute intra-abdominal or pelvic findings 2. No evidence of bowel obstruction. No evidence of free air 3. No evidence of acute diverticulitis 4. Mildly thickened appendix measuring 8 mm, but no evidence of periappendiceal inflammatory change. The appendiceal diameter remains relatively similar to the preceding study. In the absence of right lower quadrant abdominal pain this likely represents a normal variation. Clinical correlation recommended. 5. Hepatic steatosis 6. No renal, ureteral, or bladder calculi identified ACT 112: Negative or not required by law. Electronically signed by: Donny Cano M.D. 06/01/2021 4:06 PM Chest X-Ray 06/01/21 15:07 XR chest 1V portable CLINICAL HISTORY: Chest Pain COMPARISON STUDY: Chest radiograph November 24, 2020. FINDINGS: Lung volumes are normal. Lungs are clear. There is no pneumothorax or pleural effusion. Cardiac size is normal. Mediastinal contours are normal. There is no evidence for pulmonary edema. IMPRESSION: No acute cardiopulmonary findings. ACT 112: Negative or not required by law. Electronically signed by: Oscar Bryant M.D. 06/01/2021 4:13 PM ECG Data Attestation: I personally reviewed and interpreted this ECG as follows: Indication: + abdominal pain and + chest pain Rate (beats per minute): 126 Rhythm: + sinus tachycardia ECG [place]: + Right axis deviation ECG ST segments: no ST elevation ECG Findings: no PVCs MDM Narrative I did evaluate the patient as noted above. The patient is presenting with epigastric pain which is now in his chest. On exam he has significant tenderness to the epigastric region. IV access was established. I did treat him with IV FENTANYL AND ZOFRAN. I did place an order for continuous cardiac monitoring. The monitor showed sinus tachycardia at a rate of 110 bpm. I did order and personally review the patient's 12-lead EKG as described above. He has sinus tachycardia without acute ischemia. I did order and personally reviewed the images of the patient's chest x-ray as described above. His chest x-ray is unremarkable. I did order a urine analysis. I did order and review the patient's blood work as noted in the electronic medical record. His white count is 11.5. Platelet count is 437. He is not anemic. Electrolytes demonstrate a potassium of 3.4 and a CO2 of 17. His creatinine is 1.78 and BUN 22. Glucose is 252. Anion gap is 13. I did treat him with a liter of normal saline IV. I did order a VBG and serum ketones. Serum coat tones was not elevated. His pH is 7.4. His D-dimer and troponin are both negative. On reassessment his chest pain is resolved. He was given Ancef 2 g for his toe. I did discuss the test results with the patient. I did recommend hospitalization for further care and evaluation. I did discuss the case with the hospitalist and foster care case manager. Impression & Plan ADRIANNE (acute kidney injury), Acute chest pain, Abdominal pain, epigastric, Infection of right foot Discharge Plan Visit Data Chief Complaint: Chest Pain ED Provider: Frank Umaña Discharge Problem: ADRIANNE (acute kidney injury), Acute chest pain, Abdominal pain, epigastric, Infection of right foot Patient Disposition: Being Evaluated by Hospitalist Forms Stand Alone Forms: My [facility] Prescriptions Prescriptions: No Action diphenhydramine HCl [Benadryl] 25 mg Capsule 50 mg PO DAILY PRN (Reason: Allergy Symptoms) RF: 0 Referrals Referrals: Abad Upton MD [Primary Care Provider] -
[2021-06-01 15:27] LABS: Basophils # (auto) 0.03 K/uL (0-0.2); Basophils % (auto) 0.3 %; Eosinophils # (auto) 0.23 K/uL (0-0.5); Hematocrit (blood only) 44.7 % (42-52); Hemoglobin 15.2 g/dL (14.0-18.0); Immature Granulocytes # (auto) 0.04 K/uL (0.00-0.02); Immature Granulocytes % (auto) 0.3 %; Lymphocytes % (auto) 29.4 %; Mean Corpuscular Hemoglobin 29.2 pg (25-34); Mean Platelet Volume 9.9 fL (7.4-10.4); Monocytes % (auto) 5.2 %; Neutrophils # (auto) 7.28 K/uL (1.4-6.5); Neutrophils % (auto) 62.8 %; Platelet Count 437 K/uL (130-400); RDW Coefficient of Variation 14.7 % (11.5-14.5); RDW Standard Deviation 46.1 fL (36.4-46.3); White Blood Count 11.58 K/uL (4.8-10.8)
[2021-06-01 15:38] LABS: D Dimer < 190 ug/L FEU (0-500); Partial Thromboplastin Ratio 1.1; Partial Thromboplastin Time 28.9 Seconds (21.0-31.0)
[2021-06-01 15:48] LABS: Alanine Aminotransferase 56 U/L (12-78); Albumin Level 3.9 gm/dl (3.4-5.0); BUN Creatinine Ratio 12.4 (10-20); Blood Urea Nitrogen 22 mg/dl (7-18); Calcium 9.1 mg/dl (8.5-10.1); Carbon Dioxide 17 mmol/L (21-32); Chloride 107 mmol/L (98-107); Creatinine Clr Calc Pharmacy 85.1 ml/min; Est GFR (African American) 55.6 ml/min; Glucose 252 mg/dl (70-99); Lipase 88 U/L (73-393); Potassium 3.4 mmol/L (3.5-5.1); Sodium 137 mmol/L (136-145)
[2021-06-01 15:53] LABS: Albumin Globulin Ratio 0.9 (0.9-2); Alkaline Phosphatase 183 U/L (45-117); Aspartate Aminotransferase 25 U/L (15-37); Bilirubin,Total 0.8 mg/dl (0.2-1); Globulin 4.2 gm/dl (2.5-4.0); Total Protein 8.1 gm/dl (6.4-8.2); Troponin I < 0.015 ng/ml (0-0.045)
[2021-06-01] MEDS ORDERED: SODIUM CHLORIDE 0.9% 1000ML 1,000 ML IV ONE (16:06)
--- NOTE | 2021-06-01 16:08 | CT Scan Report ---
CT SCAN OF THE ABDOMEN AND PELVIS WITHOUT CONTRAST CLINICAL HISTORY: epigastric pain eval for free air COMPARISON STUDY: 11/24/2019 TECHNIQUE: CT scan of the abdomen and pelvis was performed from the lung bases to the proximal femurs . Images are reviewed in the axial, sagittal, and coronal planes. IV contrast was not administered fo r this examination. A dose lowering technique was utilized adhering to the principles of ALARA. CT DOSE: 1596.37 mGy.cm FINDINGS: Lower chest: There is a calcified granuloma within the left lower lobe. There is no significant pleur al fluid. Liver: There is hepatic steatosis. No focal masses are visualized on this noncontrast study. Gallbladder: Surgically absent Spleen: Top normal in size Pancreas: There is mild fatty atrophy the pancreas. No masses are visualized in this noncontrast stud y Adrenal glands: Unremarkable. Kidneys: No renal, ureteral, or bladder calculi are visualized. Bowel: There are no transition zones indicate bowel obstruction. There is no evidence of acute divert iculitis. There is mild appendiceal thickening but no evidence of periappendiceal inflammatory change Peritoneum: There is no intraperitoneal free air or abdominal ascites. There is interval repair of a supraumbilical fat-containing ventral hernia with an apparent-. There is anterior bulging of the mesh . Vasculature: The abdominal aorta is normal in course and caliber. Adenopathy: None. Pelvic viscera: The bladder, and pelvic viscera are unremarkable. Skeletal structures: No destructive osseous lesions are seen. IMPRESSION: 1. No acute intra-abdominal or pelvic findings 2. No evidence of bowel obstruction. No evidence of free air 3. No evidence of acute diverticulitis 4. Mildly thickened appendix measuring 8 mm, but no evidence of periappendiceal inflammatory change. The appendiceal diameter remains relatively similar to the preceding study. In the absence of right l ower quadrant abdominal pain this likely represents a normal variation. Clinical correlation recommen ded. 5. Hepatic steatosis 6. No renal, ureteral, or bladder calculi identified ACT 112: Negative or not required by law. Electronically signed by: Donny Cano M.D. 06/01/2021 4:06 PM
--- NOTE | 2021-06-01 16:14 | XRay Report ---
XR chest 1V portable CLINICAL HISTORY: Chest Pain COMPARISON STUDY: Chest radiograph November 24, 2020. FINDINGS: Lung volumes are normal. Lungs are clear. There is no pneumothorax or pleural effusion. Car diac size is normal. Mediastinal contours are normal. There is no evidence for pulmonary edema. IMPRESSION: No acute cardiopulmonary findings. ACT 112: Negative or not required by law. Electronically signed by: Oscar Bryant M.D. 06/01/2021 4:13 PM
[2021-06-01] MEDS ORDERED: ceFAZolin 2000MG 2,000 MG/15 ML SYR IV STA (17:00)
--- NOTE | 2021-06-01 17:30 | History & Physical Report ---
Date of Service June 01, 2021 Assessment & Plan (1) Atypical chest pain: This is a 35-year-old male with PMH of uncontrolled type 2 diabetes, generalized anxiety disorder, Raynaud's and other medical problems listed below who presents after sudden onset of epigastric/chest pain this afternoon. Sudden onset of epigastric pain radiating to chest - constant for 2 hours before resolving in ER CXR with no acute cardiopulmonary findings. Initial troponin negative. EKG with sinus tachycardia with HR 126 bpm Risk factors include uncontrolled DM, family history of heart disease, obesity Reports negative stress test at outside hospital in March 2021 - re-establishing care in [place] after moving back today Observe on telemetry overnight, trend troponin, obtain 2D echo, routine cardiology consult, UDS pending (2) Uncontrolled type II diabetes mellitus: Diagnosed in March 2021 at OSH - never filled prescriptions due to unemployment, lacking insurance A1c pending Initial BSG 250, normal pH, normal beta hydroxybutyric acid SSI while in-patient Glycemic consult for help establishing OP regimen, diabetic education BSG AC HS (3) ADRIANNE (acute kidney injury): Cr elevated at 1.78 - last Cr on record 0.9 from 11/2019 In setting of uncontrolled DM II, dehydration Giving IV fluids, avoid nephrotoxic agents CT abd/pelvis without renal, ureteral, or bladder calculi visualized Repeat BMP in AM - if no improvement, consider renal imaging (4) Abnormal CT of the abdomen: No acute intra-abdominal or pelvic findings but evidence of mildly thicke becky appendix measuring 8 mm, but no evidence of periappendiceal inflammatory change The appendiceal diameter remains relatively similar to the preceding study. In the absence of right lower quadrant abdominal pain this likely represents a normal variation No pain to RLQ on exam Continue to monitor closely (5) Infection of right foot: Appearance consistent with paronychia, noticed by patient 2 days ago and is spontaneously draining Given dose of Cefazolin in ER Wound culture pending Bactroban ointment TID, doxycycline 100mg BID (6) Hypokalemia: Initial K 3.4 - replaced. Monitor daily BMP (7) Raynaud's disease: Previously taking amlodipine - address with PCP (8) Anxiety: No longer taking medications DVT Ppx: SQ heparin Code status: FULL PCP: Won Dispo: Admitted to PCU Patient seen in collaboration with Dr. Mata. Please see addendum. History of Present Illness Chief Complaint: Chest pain Primary Care Provider: Abad Upton MD This is a 35-year-old male with PMH of uncontrolled type 2 diabetes, generalized anxiety disorder, Raynaud's and other medical problems listed below who presents after sudden onset of epigastric/chest pain this afternoon. Patient has been living in [place] for the past few months and took a bus home today. Was walking less than a mile to destination this afternoon when he developed sudden onset pain in his epigastrium that was squeezing and "felt like a vice". Pain radiated up to chest and across in a bandlike distribution with associated shortness of breath. Denies any lightheadedness, radiation to jaw or down arms, nausea or vomiting. Pain was constant for the next 3 hours before resolving in the ED after being given fentanyl. States he has history of panic attacks but that this pain had a more sudden onset and was not associated with feelings of anxiety. Was admitted for similar chest pain at an outside hospital in [facility] back in March 2021 and underwent stress test, which was normal. Was also diagnosed with diabetes during this admission but has not started any oral medications due to being unemployed and lacking insurance. Endorses family history of heart disease and DM II. Chest pain has completely resolved at this point. Endorses pain in right great toe with spontaneous purulent drainage earlier today. Also endorsing some gas pains in the lower abdomen earlier today. Denies any fever, chills, lightheadedness, shortness of breath, wheezing, abdominal pain, dysuria, diarrhea or constipation. Followed with Dr. Upton prior to move to [place]. Is currently homeless. Allergies Allergy/AdvReac Type Severity Reaction Status Date / Time pectin Allergy Unknown UNKNOWN Verified 06/01/21 15:52 POLLEN Allergy Intermediate SNEEZING, Uncoded 06/01/21 15:54 CONGESTION Tea Allergy Unknown UNKNOWN- Uncoded 06/01/21 15:52 ALLERGIC TO PRESERVATIVES IN TEA Uncoded Nonscreenable Allergy Unknown PRESERVATIVES Uncoded 06/01/21 15:52 Allergen IN TEA AND JELLY Home Medications Medication Instructions Recorded Confirmed Type diphenhydramine HCl [Benadryl] 50 mg PO DAILY PRN 11/24/19 06/01/21 History amlodipine 5 mg PO DAILY 06/01/21 06/01/21 History Past Med/Surg History Medical History (Updated 06/01/21 @ 18:58 by Jackie Haile PA-C) Anxiety Cholecystitis Depression HTN (hypertension) Hypertension Morbid obesity Raynaud's disease Uncontrolled type II diabetes mellitus Surgical History History of ventral hernia repair Hx of cholecystectomy Family History Other Diabetes Heart disease Social History (Updated 06/01/21 @ 18:27 by Jackie Haile PA-C) Smoking Status: Former smoker Second Hand Exposure: No; Do You Dip or Chew Tobacco: No; Hx Alcohol Use: No Hx Substance Use: No Preferred Language: Pashto Communication Ability: Effective Water Quality Tester Required: No Beliefs That Will Affect Care: Cheondoism Cheondoism Beliefs: Mandaen Current Living Situation: Homeless Current Living Situation Comment: Housemate Other Information That Helps Us Care for You: No Feels Safe at Home: Yes Safety Concerns: Feels Safe At This Time Assistive Devices: Cane and Glasses Review of Systems Review of Systems: At least ten systems reviewed and negative except as noted in the HPI. Physical Exam Physical Exam: General Appearance: WD/WN, vitals as above, anxious, sitting up in bed, pleasant, conversing easily Head: normocephalic, atraumatic Eyes: normal inspection, PERRL, conjunctivae normal, anicteric sclerae ENT: external ear and nose normal, oropharynx normal Neck: normal visual inspection, trachea midline, no thyromegaly Respiratory: normal respiratory effort, lungs clear to auscultation, no wheeze, rales, rhonchi. No accessory muscle use Cardiovascular: regular rate, rhythm, no murmur appreciated, normal peripheral pulses, no BLE edema. Vessels: no JVD Chest: normal inspection of chest Abdomen/GI: normal bowel sounds, soft, TTP over ventral hernia scarring but otherwise nontender, no hepatosplenomegaly Extremities/Musculoskeletal: + R great toe erythematous and painful to palpation, not warm, no drainage visualized. No cyanosis or clubbing, extremities motor strength 5/5 Neurologic: PERRL, EOMI, accommodation nl, no face palsy, no dysarthria, CN's II-XI intact bilaterally and moves all extremities Psychiatric: A+Ox3, anxious Skin: no rashes, normal color, warm/dry Results & Data Results & Data ([facility]) Vital Signs (Past 12 Hours) Vital Signs Temp Pulse Resp BP Pulse Ox 06/01/21 16:30 107 H 18 120/69 96 06/01/21 16:20 112 H 21 98/78 L 96 06/01/21 16:00 114 H 19 106/76 93 06/01/21 15:30 113 H 23 103/73 93 06/01/21 15:08 117 H 14 109/80 93 06/01/21 15:00 36.7 C 123 H 22 109/80 93 Laboratory Results Short CBC 06/01/21 06/01/21 Range/Units 15:00 15:00 WBC 11.58 H (4.8-10.8) K/uL Hgb 15.2 (14.0-18.0) g/dL Hct 44.7 (42-52) % Plt Count 437 H (130-400) K/uL Creatinine 1.78 H (0.6-1.4) mg/dl Glucose 252 H (70-99) mg/dl BMP 06/01/21 15:00 Sodium 137 Potassium 3.4 L Chloride 107 Carbon Dioxide 17 L BUN 22 H Creatinine 1.78 H Glucose 252 H Calcium 9.1 Cardiac Enzymes 06/01/21 Range/Units 15:00 Troponin I < 0.015 (0-0.045) ng/ml Liver Function 06/01/21 Range/Units 15:00 Total Bilirubin 0.8 (0.2-1) mg/dl AST 25 (15-37) U/L ALT 56 (12-78) U/L Alkaline Phosphatase 183 H (45-117) U/L Albumin 3.9 (3.4-5.0) gm/dl Diagnostic Findings Abdomen/Pelvis CT 06/01/21 15:07 CT SCAN OF THE ABDOMEN AND PELVIS WITHOUT CONTRAST CLINICAL HISTORY: epigastric pain eval for free air COMPARISON STUDY: 11/24/2019 TECHNIQUE: CT scan of the abdomen and pelvis was performed from the lung bases to the proximal femurs. Images are reviewed in the axial, sagittal, and coronal planes. IV contrast was not administered for this examination. A dose lowering technique was utilized adhering to the principles of ALARA. CT DOSE: 1596.37 mGy.cm FINDINGS: Lower chest: There is a calcified granuloma within the left lower lobe. There is no significant pleural fluid. Liver: There is hepatic steatosis. No focal masses are visualized on this noncontrast study. Gallbladder: Surgically absent Spleen: Top normal in size Pancreas: There is mild fatty atrophy the pancreas. No masses are visualized in this noncontrast study Adrenal glands: Unremarkable. Kidneys: No renal, ureteral, or bladder calculi are visualized. Bowel: There are no transition zones indicate bowel obstruction. There is no evidence of acute diverticulitis. There is mild appendiceal thickening but no evidence of periappendiceal inflammatory change Peritoneum: There is no intraperitoneal free air or abdominal ascites. There is interval repair of a supraumbilical fat-containing ventral hernia with an apparent-. There is anterior bulging of the mesh. Vasculature: The abdominal aorta is normal in course and caliber. Adenopathy: None. Pelvic viscera: The bladder, and pelvic viscera are unremarkable. Skeletal structures: No destructive osseous lesions are seen. IMPRESSION: 1. No acute intra-abdominal or pelvic findings 2. No evidence of bowel obstruction. No evidence of free air 3. No evidence of acute diverticulitis 4. Mildly thickened appendix measuring 8 mm, but no evidence of periappendiceal inflammatory change. The appendiceal diameter remains relatively similar to the preceding study. In the absence of right lower quadrant abdominal pain this likely represents a normal variation. Clinical correlation recommended. 5. Hepatic steatosis 6. No renal, ureteral, or bladder calculi identified ACT 112: Negative or not required by law. Electronically signed by: Donny Cano M.D. 06/01/2021 4:06 PM Chest X-Ray 06/01/21 15:07 XR chest 1V portable CLINICAL HISTORY: Chest Pain COMPARISON STUDY: Chest radiograph November 24, 2020. FINDINGS: Lung volumes are normal. Lungs are clear. There is no pneumothorax or pleural effusion. Cardiac size is normal. Mediastinal contours are normal. There is no evidence for pulmonary edema. IMPRESSION: No acute cardiopulmonary findings. ACT 112: Negative or not required by law. Electronically signed by: Oscar Bryant M.D. 06/01/2021 4:13 PM ECG Rhythm: sinus tachycardia Code Status & VTE Plan VTE Prophylaxis Plan VTE Prophylaxis will be ordered: Yes Supervising Physician Co-Signing Physician Notes I have seen and examined the patient and have discussed the case with the provider above. I agree with the assessment and plan as stated. 35 yo M with untreated DMII, obesity and a family history of early CAD in father presented with a second episode of prolonged chest pain in the last 6 months. He reports being admitted tp [facility] in [place], [place] and underwent a stress test at that time. Since then he has felt well, however, today he experienced two hours of chest pain relieved with fentanyl in the Er. Physical exam as above. Cont with plan for rule out ACS overnight. Cont blood sugar control-suggest metformin at discharge if creatinine improves and followup with [facility]? Cont IVF overnight. Adolfo, DO
[2021-06-01 17:35] LABS: Base Excess VBG 0.6 mEq/L; HCO3 VBG 25 mmol/L; PCO2 VBG 42 mmHg (38-50); PO2 VBG 29 mmHg
[2021-06-01 17:53] LABS: Oxygen Saturation VBG < 60.0 %
[2021-06-01] MEDS ORDERED: POTASSIUM CHLORIDE CRTAB 20 MEQ TABCR PO STA (18:13)
[2021-06-01] MEDS ORDERED: SODIUM CHLORIDE 0.9% 1000ML 1,000 ML IV STA (18:25)
--- NOTE | 2021-06-01 18:34 | Electrocardiogram Report ---
Test Reason : Blood Pressure : / mmHG Vent. Rate : 126 BPM Atrial Rate : 126 BPM P-R Int : 150 ms QRS Dur : 072 ms QT Int : 302 ms P-R-T Axes : 039 098 056 degrees QTc Int : 437 ms Sinus tachycardia Rightward axis Borderline ECG When compared with ECG of 26-JUL-2019 00:43, No significant change was found Confirmed by Abdullahi Salinas ([id number]) on 06/01/2021 6:34:01 PM Referred By: Confirmed By:Wilber Salinas
[2021-06-01 20:38] LABS: Magnesium 2.4 mg/dl (1.8-2.4); Thyroid Stimulating Hormone 3.24 uIu/ml (0.300-4.500)
[2021-06-01 20:46] LABS: Appearance Urine Clear (Clear); Bilirubin Urine Negative (Negative); Blood Urine Negative (Negative); Color Urine Dark Yellow; Glucose Urine UA Negative (Negative); Ketones Urine 1+ (Negative); Leukocyte Esterase Urine Negative (Negative); Nitrite Urine Negative (Negative); Protein Urine Negative (Negative); Specific Gravity Urine 1.028 (1.000-1.030); Urobilinogen Urine Negative (Negative); pH Urine 5.5 (4.5-7.5)
[2021-06-01] MEDS ORDERED: GLUCAGON FOR INJ 1 MG VIAL SQ PRN (21:21)
[2021-06-01] MEDS ORDERED: CARBOHYDRATES FOR HYPOGLYCEMIA PO PRN (21:21)
[2021-06-01] MEDS ORDERED: POLYETHYLENE (MIRALAX) 17 GM PACK PO PRN (21:21)
[2021-06-01] MEDS ORDERED: DEXTROSE 50% 50 ML SYRINGE IV PRN (21:21)
[2021-06-01] MEDS ORDERED: GLUCOSE 10 TABS/TUBE PO PRN (21:21)
[2021-06-01] MEDS ORDERED: ACETAMINOPHEN 325 MG TAB PO PRN (21:21)
[2021-06-01] MEDS ORDERED: ONDANSETRON INJ 2 MG/ML 2 ML VIAL IV PRN (21:21)
[2021-06-01] MEDS ORDERED: GLUCOSE 40% GEL 15 GM TUBE PO PRN (21:21)
[2021-06-01] MEDS ORDERED: PHARMACY GLYCEMIC MGMT CONSULT PRN (21:31)
[2021-06-01 21:38] LABS: Amphetamines+Metham, Urine Neg (Neg); Barbiturates, Urine Neg (Neg); Benzodiazepine, Urine Neg (Neg); Cocaine, Urine Neg (Neg); MDMA (Ecstacy), Urine Neg (Neg); Methadone, Urine Neg (Neg); Opiate, Urine Neg (Neg); Phencyclidine, Urine Neg (Neg)
[2021-06-01] MEDS: DOXYCYCLINE HYCLATE 100 MG CAP PO SCH (22:23)
[2021-06-01] MEDS: MUPIROCIN 2% OINT 22 GM TUBE EXT SCH (22:23)
[2021-06-01] MEDS: INSULIN ASPART 100 UNITS/ML 3 ML PEN SC SCH (22:24)
[2021-06-01] MEDS: HEPARIN SOD 5,000 UNIT/0.5 ML VIAL SQ SCH (22:25)
[2021-06-02 04:03] LABS: Hematocrit (blood only) 40.8 % (42-52); Hemoglobin 13.4 g/dL (14.0-18.0); Mean Corpuscular Hemoglobin 29.1 pg (25-34); Mean Corpuscular Hgb Conc 32.8 g/dL (32-36); Mean Corpuscular Volume 88.5 fL (80-100); Mean Platelet Volume 9.5 fL (7.4-10.4); Platelet Count 366 K/uL (130-400); RDW Coefficient of Variation 14.8 % (11.5-14.5); RDW Standard Deviation 47.8 fL (36.4-46.3); Red Blood Count 4.61 M/uL (4.7-6.1); White Blood Count 11.07 K/uL (4.8-10.8)
[2021-06-02 04:36] LABS: BUN Creatinine Ratio 14.9 (10-20); Blood Urea Nitrogen 16 mg/dl (7-18); Calcium 7.9 mg/dl (8.5-10.1); Carbon Dioxide 26 mmol/L (21-32); Chloride 111 mmol/L (98-107); Chol HDL Ratio 5; Cholesterol 173 mg/dl (0-200); Creatinine Clr Calc Pharmacy 134.8 ml/min; Est GFR (African American) 100.7 ml/min; Est GFR (Non-African American) 86.9 ml/min; Glucose 106 mg/dl (70-99); HDL Cholesterol 33 mg/dl; LDL Cholesterol Calculated 109 mg/dl; Potassium 3.8 mmol/L (3.5-5.1); Sodium 140 mmol/L (136-145); Triglycerides 157 mg/dl (0-150); Troponin I < 0.015 ng/ml (0-0.045); VLDL Cholesterol 31 mg/dl
[2021-06-02] MEDS: HEPARIN SOD 5,000 UNIT/0.5 ML VIAL SQ SCH ×2 (05:36→14:34)
[2021-06-02 07:20] LABS: Estimated Average Glucose 128 mg/dl; Hemoglobin A1C 6.1 % (4.5-5.6)
[2021-06-02] MEDS: INSULIN ASPART 100 UNITS/ML 3 ML PEN SC SCH ×4 (08:36→20:18)
[2021-06-02] MEDS: DOXYCYCLINE HYCLATE 100 MG CAP PO SCH ×2 (08:37→20:30)
[2021-06-02] MEDS: MUPIROCIN 2% OINT 22 GM TUBE EXT SCH ×3 (08:40→20:30)
[2021-06-02] MEDS ORDERED: amLODIPine BESYLATE 5 MG TAB PO SCH (09:00)
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
--- NOTE | 2021-06-02 13:02 | Gastrointestinal Consultation ---
Date of Consultation June 02, 2021 Assessment & Plan (1) Atypical chest pain: 35 year old male, residing at a long term admitted w/ chest pain, negative cardiac workup. GI asked to evaluate to rule out gastric source. He denies any recurrent symptoms but can arrange EGD to rule out PUD NPO after midnight EGD in the AM PO PPI once daily Consider gen surg consultation for abnormal imaging of appendix Supervising Physician Co-Signing Physician Notes Consult for ? non cardiac chest pain 35 yo homeless male, who arrived on 06/01 to [place] with acute non cardiac chest pain and leading to an ems call and er admission yesterday. On arrival, chest pain was resolved but noted to be tachycardic - had a cardiac workup PE essentially benign Labs showing a slightly high wbc count and ct showing ? appendiceal thickening Suspect he has anxiety as the contributing aspect to his chest pain but given his current situation of being homeless and likelihood that he may not be able to come in as an outpatient, plan for egd tomorrow. He has been taking in some liquid today. Would start PPI (Prilosec 40 mg once daily, ensuring it is 30-45 minutes prior to a meal). History of Present Illness Reason for Consultation: abd pain Requesting Physician: Gamaliel Attending Physician: Damion Alston MD History of Present Illness 35 year old male with history of type 2 diabetes, generalized anxiety disorder, Raynaud's and other medical problems listed below who presents after sudden onset of epigastric/chest pain yesterday afternoon. He notes he has had similar symptoms before. Last on [place] which prompted cardiac workup. This was negative. Last occurred yesterday. Epigastric, chest pain. Radiated through his chest. Associated with vice like pressure. Resolved. No associated nausea, vomiting. No GERD. No dysphagia. No change in bowel haibts. No fever, chills, CP, SOB. He has been working on weight loss No nsaids No ETOH No marijuana No tobacco + family history of colon cancer in dad CT reviewed. Allergies Allergy/AdvReac Type Severity Reaction Status Date / Time pectin Allergy Unknown UNKNOWN Verified 06/01/21 15:52 POLLEN Allergy Intermediate SNEEZING, Uncoded 06/01/21 15:54 CONGESTION Tea Allergy Unknown UNKNOWN- Uncoded 06/01/21 15:52 ALLERGIC TO PRESERVATIVES IN TEA Uncoded Nonscreenable Allergy Unknown PRESERVATIVES Uncoded 06/01/21 15:52 Allergen IN TEA AND JELLY Home Medications Medication Instructions Recorded Confirmed Type diphenhydramine HCl 25 mg capsule 50 mg PO DAILY PRN 11/24/19 06/01/21 History (Benadryl) amlodipine 5 mg tablet 5 mg PO DAILY 06/01/21 06/01/21 History Patient History Medical History Anxiety Cholecystitis Depression HTN (hypertension) Hypertension Morbid obesity Raynaud's disease Uncontrolled type II diabetes mellitus Surgical History History of ventral hernia repair Hx of cholecystectomy Family History Other Diabetes Heart disease Social History Smoking Status: Former smoker Second Hand Exposure: No; Do You Dip or Chew Tobacco: No; Hx Alcohol Use: No Hx Substance Use: No Preferred Language: [place] Communication Ability: Effective Correctional Maintenance Technician Required: No Beliefs That Will Affect Care: Jainism Jainism Beliefs: Anglican Current Living Situation: Homeless Current Living Situation Comment: Housemate Other Information That Helps Us Care for You: No Feels Safe at Home: Yes Safety Concerns: Feels Safe At This Time Assistive Devices: Cane Review of Systems Review of Systems: All systems reviewed & are unremarkable except as noted in HPI & below Physical Exam Constitutional: WD/WN, vitals as above Eyes: PERRL, conjunctivae normal, anicteric sclerae Respiratory: normal respiratory effort, lungs clear to auscultation Cardiovascular: RRR, no murmur, no edema Gastrointestinal (Abdomen): normal bowel sounds, soft, nontender, no hepatosplenomegaly Skin: no rashes, warm and dry Results & Data ([facility]) Vital Signs (Past 12 Hours) Vital Signs Temp Pulse Resp BP Pulse Ox 06/02/21 07:55 36.4 C L 71 17 131/85 95 06/02/21 05:33 36.3 C L 75 18 117/74 93 Laboratory Results 06/02/21 06/02/21 06/02/21 Range/Units 10:48 07:20 03:50 WBC (4.8-10.8) K/uL RBC (4.7-6.1) M/uL Hgb (14.0-18.0) g/dL Hct (42-52) % MCV (80-100) fL MCH (25-34) pg MCHC (32-36) g/dL RDW Std Deviation (36.4-46.3) fL RDW Coeff of Kai (11.5-14.5) % Plt Count (130-400) K/uL MPV (7.4-10.4) fL Immature Gran % (Auto) % Neut % (Auto) % Lymph % (Auto) % [place] % (Auto) % Eos % (Auto) % Baso % (Auto) % Neut # (Auto) (1.4-6.5) K/uL Lymph # (Auto) (1.2-3.4) K/uL [place] # (Auto) (0.11-0.59) K/uL Eos # (Auto) (0-0.5) K/uL Baso # (Auto) (0-0.2) K/uL Immature Gran # (Auto) (0.00-0.02) K/uL APTT (21.0-31.0) Seconds PTT Ratio D-Dimer (0-500) ug/L FEU VBG pH (7.36-7.41) VBG pCO2 (38-50) mmHg VBG pO2 mmHg VBG HCO3 mmol/L VBG O2 Saturation % VBG Base Excess mEq/L Barometric Pressure mm/Hg Sodium (136-145) mmol/L Potassium (3.5-5.1) mmol/L Chloride (98-107) mmol/L Carbon Dioxide (21-32) mmol/L Anion Gap (3-11) BUN (7-18) mg/dl Creatinine (0.6-1.4) mg/dl Est Cr Clr Drug Dosing ml/min Est GFR ( Amer) ml/min Est GFR (Non-Af Amer) ml/min BUN/Creatinine Ratio (10-20) Glucose (70-99) mg/dl POC Glucose 98 95 (70-99) mg/dl Estimat Average Glucose 128 mg/dl Hemoglobin A1c 6.1 H (4.5-5.6) % Calcium (8.5-10.1) mg/dl Magnesium (1.8-2.4) mg/dl Total Bilirubin (0.2-1) mg/dl AST (15-37) U/L ALT (12-78) U/L Alkaline Phosphatase (45-117) U/L Troponin I (0-0.045) ng/ml Total Protein (6.4-8.2) gm/dl Albumin (3.4-5.0) gm/dl Globulin (2.5-4.0) gm/dl Albumin/Globulin Ratio (0.9-2) Triglycerides (0-150) mg/dl Cholesterol (0-200) mg/dl LDL Cholesterol, Calc mg/dl VLDL Cholesterol, Calc mg/dl HDL Cholesterol mg/dl Cholesterol/HDL Ratio Lipase (73-393) U/L Beta-Hydroxybutyric Acd (0.2-2.81) mg/dl TSH (0.300-4.500) uIu/ml Urine Color Urine Appearance (Clear) Urine pH (4.5-7.5) Ur Specific [place] (1.000-1.030) Urine Protein (Negative) Urine Glucose (UA) (Negative) Urine Ketones (Negative) Urine Blood (Negative) Urine Nitrite (Negative) Urine Bilirubin (Negative) Urine Urobilinogen (Negative) Ur Leukocyte Esterase (Negative) Urine Opiates Screen (Neg) Ur Methadone, Qual (Neg) Urine Barbiturates (Neg) Ur Phencyclidine (PCP) (Neg) U Amphetamin/Meth Scrn (Neg) MDMA (Ecstasy) Screen (Neg) U Benzodiazepines Scrn (Neg) Ur Cocaine Metabolite (Neg) U Marijuana (THC) Screen (Neg) COVID-19 Eval Order SARS-CoV-2 (PCR) (Negative) 06/02/21 06/02/21 06/01/21 Range/Units 03:50 03:50 21:36 WBC 11.07 H (4.8-10.8) K/uL RBC 4.61 L (4.7-6.1) M/uL Hgb 13.4 L (14.0-18.0) g/dL Hct 40.8 L (42-52) % MCV 88.5 (80-100) fL MCH 29.1 (25-34) pg MCHC 32.8 (32-36) g/dL RDW Std Deviation 47.8 H (36.4-46.3) fL RDW Coeff of Kai 14.8 H (11.5-14.5) % Plt Count 366 (130-400) K/uL MPV 9.5 (7.4-10.4) fL Immature Gran % (Auto) % Neut % (Auto) % Lymph % (Auto) % [place] % (Auto) % Eos % (Auto) % Baso % (Auto) % Neut # (Auto) (1.4-6.5) K/uL Lymph # (Auto) (1.2-3.4) K/uL [place] # (Auto) (0.11-0.59) K/uL Eos # (Auto) (0-0.5) K/uL Baso # (Auto) (0-0.2) K/uL Immature Gran # (Auto) (0.00-0.02) K/uL APTT (21.0-31.0) Seconds PTT Ratio D-Dimer (0-500) ug/L FEU VBG pH (7.36-7.41) VBG pCO2 (38-50) mmHg VBG pO2 mmHg VBG HCO3 mmol/L VBG O2 Saturation % VBG Base Excess mEq/L Barometric Pressure mm/Hg Sodium 140 (136-145) mmol/L Potassium 3.8 (3.5-5.1) mmol/L Chloride 111 H (98-107) mmol/L Carbon Dioxide 26 (21-32) mmol/L Anion Gap 3.0 (3-11) BUN 16 (7-18) mg/dl Creatinine 1.09 (0.6-1.4) mg/dl Est Cr Clr Drug Dosing 134.8 ml/min Est GFR ( Amer) 100.7 ml/min Est GFR (Non-Af Amer) 86.9 ml/min BUN/Creatinine Ratio 14.9 (10-20) Glucose 106 H (70-99) mg/dl POC Glucose (70-99) mg/dl Estimat Average Glucose mg/dl Hemoglobin A1c (4.5-5.6) % Calcium 7.9 L (8.5-10.1) mg/dl Magnesium (1.8-2.4) mg/dl Total Bilirubin (0.2-1) mg/dl AST (15-37) U/L ALT (12-78) U/L Alkaline Phosphatase (45-117) U/L Troponin I < 0.015 < 0.015 (0-0.045) ng/ml Total Protein (6.4-8.2) gm/dl Albumin (3.4-5.0) gm/dl Globulin (2.5-4.0) gm/dl Albumin/Globulin Ratio (0.9-2) Triglycerides 157 H (0-150) mg/dl Cholesterol 173 (0-200) mg/dl LDL Cholesterol, Calc 109 mg/dl VLDL Cholesterol, Calc 31 mg/dl HDL Cholesterol 33 mg/dl Cholesterol/HDL Ratio 5 Lipase (73-393) U/L Beta-Hydroxybutyric Acd (0.2-2.81) mg/dl TSH (0.300-4.500) uIu/ml Urine Color Urine Appearance (Clear) Urine pH (4.5-7.5) Ur Specific [place] (1.000-1.030) Urine Protein (Negative) Urine Glucose (UA) (Negative) Urine Ketones (Negative) Urine Blood (Negative) Urine Nitrite (Negative) Urine Bilirubin (Negative) Urine Urobilinogen (Negative) Ur Leukocyte Esterase (Negative) Urine Opiates Screen (Neg) Ur Methadone, Qual (Neg) Urine Barbiturates (Neg) Ur Phencyclidine (PCP) (Neg) U Amphetamin/Meth Scrn (Neg) MDMA (Ecstasy) Screen (Neg) U Benzodiazepines Scrn (Neg) Ur Cocaine Metabolite (Neg) U Marijuana (THC) Screen (Neg) COVID-19 Eval Order SARS-CoV-2 (PCR) (Negative) 06/01/21 06/01/21 06/01/21 Range/Units 21:34 20:00 20:00 WBC (4.8-10.8) K/uL RBC (4.7-6.1) M/uL Hgb (14.0-18.0) g/dL Hct (42-52) % MCV (80-100) fL MCH (25-34) pg MCHC (32-36) g/dL RDW Std Deviation (36.4-46.3) fL RDW Coeff of Kai (11.5-14.5) % Plt Count (130-400) K/uL MPV (7.4-10.4) fL Immature Gran % (Auto) % Neut % (Auto) % Lymph % (Auto) % [place] % (Auto) % Eos % (Auto) % Baso % (Auto) % Neut # (Auto) (1.4-6.5) K/uL Lymph # (Auto) (1.2-3.4) K/uL [place] # (Auto) (0.11-0.59) K/uL Eos # (Auto) (0-0.5) K/uL Baso # (Auto) (0-0.2) K/uL Immature Gran # (Auto) (0.00-0.02) K/uL APTT (21.0-31.0) Seconds PTT Ratio D-Dimer (0-500) ug/L FEU VBG pH (7.36-7.41) VBG pCO2 (38-50) mmHg VBG pO2 mmHg VBG HCO3 mmol/L VBG O2 Saturation % VBG Base Excess mEq/L Barometric Pressure mm/Hg Sodium (136-145) mmol/L Potassium (3.5-5.1) mmol/L Chloride (98-107) mmol/L Carbon Dioxide (21-32) mmol/L Anion Gap (3-11) BUN (7-18) mg/dl Creatinine (0.6-1.4) mg/dl Est Cr Clr Drug Dosing ml/min Est GFR ( Amer) ml/min Est GFR (Non-Af Amer) ml/min BUN/Creatinine Ratio (10-20) Glucose (70-99) mg/dl POC Glucose 88 (70-99) mg/dl Estimat Average Glucose mg/dl Hemoglobin A1c (4.5-5.6) % Calcium (8.5-10.1) mg/dl Magnesium (1.8-2.4) mg/dl Total Bilirubin (0.2-1) mg/dl AST (15-37) U/L ALT (12-78) U/L Alkaline Phosphatase (45-117) U/L Troponin I (0-0.045) ng/ml Total Protein (6.4-8.2) gm/dl Albumin (3.4-5.0) gm/dl Globulin (2.5-4.0) gm/dl Albumin/Globulin Ratio (0.9-2) Triglycerides (0-150) mg/dl Cholesterol (0-200) mg/dl LDL Cholesterol, Calc mg/dl VLDL Cholesterol, Calc mg/dl HDL Cholesterol mg/dl Cholesterol/HDL Ratio Lipase (73-393) U/L Beta-Hydroxybutyric Acd (0.2-2.81) mg/dl TSH (0.300-4.500) uIu/ml Urine Color Dark Yellow Urine Appearance Clear (Clear) Urine pH 5.5 (4.5-7.5) Ur Specific [place] 1.028 (1.000-1.030) Urine Protein Negative (Negative) Urine Glucose (UA) Negative (Negative) Urine Ketones 1+ H (Negative) Urine Blood Negative (Negative) Urine Nitrite Negative (Negative) Urine Bilirubin Negative (Negative) Urine Urobilinogen Negative (Negative) Ur Leukocyte Esterase Negative (Negative) Urine Opiates Screen Neg (Neg) Ur Methadone, Qual Neg (Neg) Urine Barbiturates Neg (Neg) Ur Phencyclidine (PCP) Neg (Neg) U Amphetamin/Meth Scrn Neg (Neg) MDMA (Ecstasy) Screen Neg (Neg) U Benzodiazepines Scrn Neg (Neg) Ur Cocaine Metabolite Neg (Neg) U Marijuana (THC) Screen Neg (Neg) COVID-19 Eval Order SARS-CoV-2 (PCR) (Negative) 06/01/21 06/01/21 06/01/21 Range/Units 17:50 17:50 17:17 WBC (4.8-10.8) K/uL RBC (4.7-6.1) M/uL Hgb (14.0-18.0) g/dL Hct (42-52) % MCV (80-100) fL MCH (25-34) pg MCHC (32-36) g/dL RDW Std Deviation (36.4-46.3) fL RDW Coeff of Kai (11.5-14.5) % Plt Count (130-400) K/uL MPV (7.4-10.4) fL Immature Gran % (Auto) % Neut % (Auto) % Lymph % (Auto) % [place] % (Auto) % Eos % (Auto) % Baso % (Auto) % Neut # (Auto) (1.4-6.5) K/uL Lymph # (Auto) (1.2-3.4) K/uL [place] # (Auto) (0.11-0.59) K/uL Eos # (Auto) (0-0.5) K/uL Baso # (Auto) (0-0.2) K/uL Immature Gran # (Auto) (0.00-0.02) K/uL APTT (21.0-31.0) Seconds PTT Ratio D-Dimer (0-500) ug/L FEU VBG pH 7.40 (7.36-7.41) VBG pCO2 42 (38-50) mmHg VBG pO2 29 mmHg VBG HCO3 25 mmol/L VBG O2 Saturation < 60.0 % VBG Base Excess 0.6 mEq/L Barometric Pressure 734.2 mm/Hg Sodium (136-145) mmol/L Potassium (3.5-5.1) mmol/L Chloride (98-107) mmol/L Carbon Dioxide (21-32) mmol/L Anion Gap (3-11) BUN (7-18) mg/dl Creatinine (0.6-1.4) mg/dl Est Cr Clr Drug Dosing ml/min Est GFR ( Amer) ml/min Est GFR (Non-Af Amer) ml/min BUN/Creatinine Ratio (10-20) Glucose (70-99) mg/dl POC Glucose (70-99) mg/dl Estimat Average Glucose mg/dl Hemoglobin A1c (4.5-5.6) % Calcium (8.5-10.1) mg/dl Magnesium (1.8-2.4) mg/dl Total Bilirubin (0.2-1) mg/dl AST (15-37) U/L ALT (12-78) U/L Alkaline Phosphatase (45-117) U/L Troponin I (0-0.045) ng/ml Total Protein (6.4-8.2) gm/dl Albumin (3.4-5.0) gm/dl Globulin (2.5-4.0) gm/dl Albumin/Globulin Ratio (0.9-2) Triglycerides (0-150) mg/dl Cholesterol (0-200) mg/dl LDL Cholesterol, Calc mg/dl VLDL Cholesterol, Calc mg/dl HDL Cholesterol mg/dl Cholesterol/HDL Ratio Lipase (73-393) U/L Beta-Hydroxybutyric Acd (0.2-2.81) mg/dl TSH (0.300-4.500) uIu/ml Urine Color Urine Appearance (Clear) Urine pH (4.5-7.5) Ur Specific [place] (1.000-1.030) Urine Protein (Negative) Urine Glucose (UA) (Negative) Urine Ketones (Negative) Urine Blood (Negative) Urine Nitrite (Negative) Urine Bilirubin (Negative) Urine Urobilinogen (Negative) Ur Leukocyte Esterase (Negative) Urine Opiates Screen (Neg) Ur Methadone, Qual (Neg) Urine Barbiturates (Neg) Ur Phencyclidine (PCP) (Neg) U Amphetamin/Meth Scrn (Neg) MDMA (Ecstasy) Screen (Neg) U Benzodiazepines Scrn (Neg) Ur Cocaine Metabolite (Neg) U Marijuana (THC) Screen (Neg) COVID-19 Eval Order Covid19 at [facility] SARS-CoV-2 (PCR) NEGATIVE (Negative) 06/01/21 06/01/21 06/01/21 Range/Units 17:17 15:00 15:00 WBC 11.58 H (4.8-10.8) K/uL RBC 5.20 (4.7-6.1) M/uL Hgb 15.2 (14.0-18.0) g/dL Hct 44.7 (42-52) % MCV 86.0 (80-100) fL MCH 29.2 (25-34) pg MCHC 34.0 (32-36) g/dL RDW Std Deviation 46.1 (36.4-46.3) fL RDW Coeff of Kai 14.7 H (11.5-14.5) % Plt Count 437 H (130-400) K/uL MPV 9.9 (7.4-10.4) fL Immature Gran % (Auto) 0.3 % Neut % (Auto) 62.8 % Lymph % (Auto) 29.4 % [place] % (Auto) 5.2 % Eos % (Auto) 2.0 % Baso % (Auto) 0.3 % Neut # (Auto) 7.28 H (1.4-6.5) K/uL Lymph # (Auto) 3.40 (1.2-3.4) K/uL [place] # (Auto) 0.60 H (0.11-0.59) K/uL Eos # (Auto) 0.23 (0-0.5) K/uL Baso # (Auto) 0.03 (0-0.2) K/uL Immature Gran # (Auto) 0.04 H (0.00-0.02) K/uL APTT (21.0-31.0) Seconds PTT Ratio D-Dimer (0-500) ug/L FEU VBG pH (7.36-7.41) VBG pCO2 (38-50) mmHg VBG pO2 mmHg VBG HCO3 mmol/L VBG O2 Saturation % VBG Base Excess mEq/L Barometric Pressure mm/Hg Sodium (136-145) mmol/L Potassium (3.5-5.1) mmol/L Chloride (98-107) mmol/L Carbon Dioxide (21-32) mmol/L Anion Gap (3-11) BUN (7-18) mg/dl Creatinine (0.6-1.4) mg/dl Est Cr Clr Drug Dosing ml/min Est GFR ( Amer) ml/min Est GFR (Non-Af Amer) ml/min BUN/Creatinine Ratio (10-20) Glucose (70-99) mg/dl POC Glucose (70-99) mg/dl Estimat Average Glucose mg/dl Hemoglobin A1c (4.5-5.6) % Calcium (8.5-10.1) mg/dl Magnesium 2.4 (1.8-2.4) mg/dl Total Bilirubin (0.2-1) mg/dl AST (15-37) U/L ALT (12-78) U/L Alkaline Phosphatase (45-117) U/L Troponin I (0-0.045) ng/ml Total Protein (6.4-8.2) gm/dl Albumin (3.4-5.0) gm/dl Globulin (2.5-4.0) gm/dl Albumin/Globulin Ratio (0.9-2) Triglycerides (0-150) mg/dl Cholesterol (0-200) mg/dl LDL Cholesterol, Calc mg/dl VLDL Cholesterol, Calc mg/dl HDL Cholesterol mg/dl Cholesterol/HDL Ratio Lipase (73-393) U/L Beta-Hydroxybutyric Acd 0.68 (0.2-2.81) mg/dl TSH 3.240 (0.300-4.500) uIu/ml Urine Color Urine Appearance (Clear) Urine pH (4.5-7.5) Ur Specific [place] (1.000-1.030) Urine Protein (Negative) Urine Glucose (UA) (Negative) Urine Ketones (Negative) Urine Blood (Negative) Urine Nitrite (Negative) Urine Bilirubin (Negative) Urine Urobilinogen (Negative) Ur Leukocyte Esterase (Negative) Urine Opiates Screen (Neg) Ur Methadone, Qual (Neg) Urine Barbiturates (Neg) Ur Phencyclidine (PCP) (Neg) U Amphetamin/Meth Scrn (Neg) MDMA (Ecstasy) Screen (Neg) U Benzodiazepines Scrn (Neg) Ur Cocaine Metabolite (Neg) U Marijuana (THC) Screen (Neg) COVID-19 Eval Order SARS-CoV-2 (PCR) (Negative) 06/01/21 06/01/21 Range/Units 15:00 15:00 WBC (4.8-10.8) K/uL RBC (4.7-6.1) M/uL Hgb (14.0-18.0) g/dL Hct (42-52) % MCV (80-100) fL MCH (25-34) pg MCHC (32-36) g/dL RDW Std Deviation (36.4-46.3) fL RDW Coeff of Kai (11.5-14.5) % Plt Count (130-400) K/uL MPV (7.4-10.4) fL Immature Gran % (Auto) % Neut % (Auto) % Lymph % (Auto) % [place] % (Auto) % Eos % (Auto) % Baso % (Auto) % Neut # (Auto) (1.4-6.5) K/uL Lymph # (Auto) (1.2-3.4) K/uL [place] # (Auto) (0.11-0.59) K/uL Eos # (Auto) (0-0.5) K/uL Baso # (Auto) (0-0.2) K/uL Immature Gran # (Auto) (0.00-0.02) K/uL APTT 28.9 (21.0-31.0) Seconds PTT Ratio 1.1 D-Dimer < 190 (0-500) ug/L FEU VBG pH (7.36-7.41) VBG pCO2 (38-50) mmHg VBG pO2 mmHg VBG HCO3 mmol/L VBG O2 Saturation % VBG Base Excess mEq/L Barometric Pressure mm/Hg Sodium 137 (136-145) mmol/L Potassium 3.4 L (3.5-5.1) mmol/L Chloride 107 (98-107) mmol/L Carbon Dioxide 17 L (21-32) mmol/L Anion Gap 13.0 H (3-11) BUN 22 H (7-18) mg/dl Creatinine 1.78 H (0.6-1.4) mg/dl Est Cr Clr Drug Dosing 85.1 ml/min Est GFR ( Amer) 55.6 ml/min Est GFR (Non-Af Amer) 48.0 ml/min BUN/Creatinine Ratio 12.4 (10-20) Glucose 252 H (70-99) mg/dl POC Glucose (70-99) mg/dl Estimat Average Glucose mg/dl Hemoglobin A1c (4.5-5.6) % Calcium 9.1 (8.5-10.1) mg/dl Magnesium (1.8-2.4) mg/dl Total Bilirubin 0.8 (0.2-1) mg/dl AST 25 (15-37) U/L ALT 56 (12-78) U/L Alkaline Phosphatase 183 H (45-117) U/L Troponin I < 0.015 (0-0.045) ng/ml Total Protein 8.1 (6.4-8.2) gm/dl Albumin 3.9 (3.4-5.0) gm/dl Globulin 4.2 H (2.5-4.0) gm/dl Albumin/Globulin Ratio 0.9 (0.9-2) Triglycerides (0-150) mg/dl Cholesterol (0-200) mg/dl LDL Cholesterol, Calc mg/dl VLDL Cholesterol, Calc mg/dl HDL Cholesterol mg/dl Cholesterol/HDL Ratio Lipase 88 (73-393) U/L Beta-Hydroxybutyric Acd (0.2-2.81) mg/dl TSH (0.300-4.500) uIu/ml Urine Color Urine Appearance (Clear) Urine pH (4.5-7.5) Ur Specific [place] (1.000-1.030) Urine Protein (Negative) Urine Glucose (UA) (Negative) Urine Ketones (Negative) Urine Blood (Negative) Urine Nitrite (Negative) Urine Bilirubin (Negative) Urine Urobilinogen (Negative) Ur Leukocyte Esterase (Negative) Urine Opiates Screen (Neg) Ur Methadone, Qual (Neg) Urine Barbiturates (Neg) Ur Phencyclidine (PCP) (Neg) U Amphetamin/Meth Scrn (Neg) MDMA (Ecstasy) Screen (Neg) U Benzodiazepines Scrn (Neg) Ur Cocaine Metabolite (Neg) U Marijuana (THC) Screen (Neg) COVID-19 Eval Order SARS-CoV-2 (PCR) (Negative)
--- NOTE | 2021-06-02 14:26 | Surgery Consultation ---
Date of Consultation June 02, 2021 Assessment & Plan (1) Abnormal CT of the abdomen: This is a 35yM with a PMH of homelessness, DM2, HTN, anxiety/depression who presents to the [facility] ED on 06/01/21 with complaints of epigastric and chest pain. Surgery was consulted as patient had a CT a/p performed that revealed a mildly thickened appendix measuring 8 mm, without evidence of periappendiceal inflammatory change. Per radiology, the appendiceal diameter remains relatively similar to the preceding study and in the absence of right lower quadrant abdominal pain this likely represents a normal variation. No other acute intra- abdominal findings noted. Patient's WBC 11, he is afebrile with stable vital signs. On examination abdomen is soft, non tender, non distended. He has no clinical findings or symptomatology of appendicitis. He is undergoing cardiac workup for chest pain which has so far been unrevealing. GI is planning on performing EGD tomorrow to rule out PUD. We have no plans for surgical intervention in this patient and feel it is okay to continue to monitor. Okay for diet from our standpoint pending other consulting services plans for procedures. Dr. Arriaga with above assessment and plan-May discharge patient home when medically stable History of Present Illness Attending Physician: Damion Alston MD History of Present Illness This is a 35yM with a PMH of homelessness, DM2, HTN, anxiety/depression who presents to the [facility] ED on 06/01/21 with complaints of epigastric and chest pain. Patient reports he returned from [place] via bus and on his walk to his destination developed acute onset of epigastric/chest pain. Patient reports the pain "felt like a puncture in the upper abdomen that shot up into the chest and radiated outwards". He developed some trouble breathing with this and called 911 to be brought into the ER for further evaluation. In the ER patient underwent a CT a/p that showed no acute intra-abdominal findings, along with a mildly thickened appendix measuring 8 mm, without evidence of periappendiceal inflammatory change. The appendiceal diameter remains relatively similar to the preceding study and in the absence of right lower quadrant abdominal pain this likely represents a normal variation. Patient denies any abdominal pain outside of the epigastric region, which lasted around 2 hours yesterday and has now subsided. He has been eating well without issues. He denies any fevers/chills, nausea/vomiting, or changes in bowel habits. Prior abdominal surgical history includes a laparoscopic cholecystectomy and open ventral hernia repair with mesh. Since arrival patient feels improvement in his symptoms. He says he is hungry. Allergies Allergy/AdvReac Type Severity Reaction Status Date / Time pectin Allergy Unknown UNKNOWN Verified 06/01/21 15:52 POLLEN Allergy Intermediate SNEEZING, Uncoded 06/01/21 15:54 CONGESTION Tea Allergy Unknown UNKNOWN- Uncoded 06/01/21 15:52 ALLERGIC TO PRESERVATIVES IN TEA Uncoded Nonscreenable Allergy Unknown PRESERVATIVES Uncoded 06/01/21 15:52 Allergen IN TEA AND JELLY Home Medications Medication Instructions Recorded Confirmed Type diphenhydramine HCl 25 mg capsule 50 mg PO DAILY PRN 11/24/19 06/01/21 History (Benadryl) amlodipine 5 mg tablet 5 mg PO DAILY 06/01/21 06/01/21 History Patient History Medical History Anxiety Cholecystitis Depression HTN (hypertension) Hypertension Morbid obesity Raynaud's disease Uncontrolled type II diabetes mellitus Surgical History History of ventral hernia repair Hx of cholecystectomy Family History Other Diabetes Heart disease Social History Smoking Status: Former smoker Second Hand Exposure: No; Do You Dip or Chew Tobacco: No; Hx Alcohol Use: No Hx Substance Use: No Preferred Language: Hebrew Communication Ability: Effective Tap Out Operator Required: No Beliefs That Will Affect Care: Caodaism Caodaism Beliefs: Sikh Current Living Situation: Homeless Current Living Situation Comment: Housemate Other Information That Helps Us Care for You: No Feels Safe at Home: Yes Safety Concerns: Feels Safe At This Time Assistive Devices: Cane Review of Systems Constitutional: no fever, no chills and no anorexia Respiratory: some shortness of breath associated with the pain Cardiovascular: + chest pain Gastrointestinal: + abdominal pain (epigastric); no nausea, no vomiting and no change in bowel habits Physical Exam Physical Exam: awake/alert, seen walking in the hallways Constitutional: comfortable; no acute distress Respiratory: normal respiratory effort Cardiovascular: Rate/Rhythm: regular rate Gastrointestinal (Abdomen): Inspection/Auscultation: + abdominal surgical scar (midline incision from prior hernia repair and lap sites from lap michaela); abdomen not distended Percussion/Palpation: abdomen soft; abdomen nontender and no guarding Results & Data ([facility]) Vital Signs (Past 12 Hours) Vital Signs Temp Pulse Resp BP Pulse Ox 06/02/21 07:55 36.4 C L 71 17 131/85 95 06/02/21 05:33 36.3 C L 75 18 117/[address] SCAN OF THE ABDOMEN AND PELVIS WITHOUT CONTRAST CLINICAL HISTORY: epigastric pain eval for free air COMPARISON STUDY: 11/24/2019 TECHNIQUE: CT scan of the abdomen and pelvis was performed from the lung bases to the proximal femurs. Images are reviewed in the axial, sagittal, and coronal planes. IV contrast was not administered for this examination. A dose lowering technique was utilized adhering to the principles of ALARA. CT DOSE: 1596.37 mGy.cm FINDINGS: Lower chest: There is a calcified granuloma within the left lower lobe. There is no significant pleural fluid. Liver: There is hepatic steatosis. No focal masses are visualized on this noncontrast study. Gallbladder: Surgically absent Spleen: Top normal in size Pancreas: There is mild fatty atrophy the pancreas. No masses are visualized in this noncontrast study Adrenal glands: Unremarkable. Kidneys: No renal, ureteral, or bladder calculi are visualized. Bowel: There are no transition zones indicate bowel obstruction. There is no evidence of acute diverticulitis. There is mild appendiceal thickening but no evidence of periappendiceal inflammatory change Peritoneum: There is no intraperitoneal free air or abdominal ascites. There is interval repair of a supraumbilical fat-containing ventral hernia with an apparent-. There is anterior bulging of the mesh. Vasculature: The abdominal aorta is normal in course and caliber. Adenopathy: None. Pelvic viscera: The bladder, and pelvic viscera are unremarkable. Skeletal structures: No destructive osseous lesions are seen. IMPRESSION: 1. No acute intra-abdominal or pelvic findings 2. No evidence of bowel obstruction. No evidence of free air 3. No evidence of acute diverticulitis 4. Mildly thickened appendix measuring 8 mm, but no evidence of periappendiceal inflammatory change. The appendiceal diameter remains relatively similar to the preceding study. In the absence of right lower quadrant abdominal pain this likely represents a normal variation. Clinical correlation recommended. 5. Hepatic steatosis 6. No renal, ureteral, or bladder calculi identified ACT 112: Negative or not required by law. Electronically signed by: Donny Cano M.D. 06/01/2021 4:06 PM PG Care Time/CCT Total # of Minutes Spent Total Time Spent with Patient: Total time spent is greater than 50% in coordination of care (as documented) at patient's floor/unit and/or counseling patient: Coding Level of Care Code 08765 Inpt Consult Level [address] of the abdomen R93.5
--- NOTE | 2021-06-02 16:53 | Hospitalist Progress Note ---
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 (3) ADRIANNE (acute kidney injury): Plan: resolved (4) Abnormal CT of the abdomen: Plan: (+) appendiceal thickening Gen Surg consulted monitor (5) Infection of right foot: Plan: improving continue Doxycycline Day 12/27 (6) Hypokalemia: Plan: resolved (7) Raynaud's disease: Plan: outpatient management (8) Anxiety: Plan: stable per patient outpatient ff up Plan: anticipate d/c to Retirement[facility] Living on discharge plan of care discussed with patient in detail and at length all questions answered he is understanding, agreeable, comfortable with the plan of care Admission and Anticipated Discharge Date Admission Date: June 01, 2021 Subjective seen for chest pain, etc seen resting in bed, comfortable states chest pain has resolved since last night reports this is his 2nd admission for severe chest pain no nausea, (+) weight loss, no hematochezia/melena admits to taking Ibuprofen for the past month no other symptoms Review of Systems Review of Systems: all noted and reviewed except for above Results & Data Results & Data ([facility]) Vital Signs (Past 12 Hours) Vital Signs Temp Pulse Resp BP Pulse Ox 06/02/21 16:25 36.6 C 93 H 17 156/108 H 95 06/02/21 07:55 36.4 C L 71 17 131/85 95 06/02/21 05:33 36.3 C L 75 18 117/74 93 Laboratory Results Laboratory Results - last 24 hr 06/01/21 06/01/21 06/01/21 15:00 17:17 17:17 WBC RBC Hgb Hct MCV MCH MCHC RDW Std Deviation RDW Coeff of Kai Plt Count MPV VBG pH 7.40 VBG pCO2 42 VBG pO2 29 VBG HCO3 25 VBG O2 Saturation < 60.0 VBG Base Excess 0.6 Barometric Pressure 734.2 Sodium Potassium Chloride Carbon Dioxide Anion Gap BUN Creatinine Est Cr Clr Drug Dosing Est GFR ( Amer) Est GFR (Non-Af Amer) BUN/Creatinine Ratio Glucose POC Glucose Estimat Average Glucose Hemoglobin A1c Calcium Magnesium 2.4 Troponin I Triglycerides Cholesterol LDL Cholesterol, Calc VLDL Cholesterol, Calc HDL Cholesterol Cholesterol/HDL Ratio Beta-Hydroxybutyric Acd 0.68 TSH 3.240 Urine Color Urine Appearance Urine pH Ur Specific Patterson Urine Protein Urine Glucose (UA) Urine Ketones Urine Blood Urine Nitrite Urine Bilirubin Urine Urobilinogen Ur Leukocyte Esterase Urine Opiates Screen Ur Methadone, Qual Urine Barbiturates Ur Phencyclidine (PCP) U Amphetamin/Meth Scrn MDMA (Ecstasy) Screen U Benzodiazepines Scrn Ur Cocaine Metabolite U Marijuana (THC) Screen COVID-19 Eval Order SARS-CoV-2 (PCR) 06/01/21 06/01/21 06/01/21 17:50 17:50 20:00 WBC RBC Hgb Hct MCV MCH MCHC RDW Std Deviation RDW Coeff of Kai Plt Count MPV VBG pH VBG pCO2 VBG pO2 VBG HCO3 VBG O2 Saturation VBG Base Excess Barometric Pressure Sodium Potassium Chloride Carbon Dioxide Anion Gap BUN Creatinine Est Cr Clr Drug Dosing Est GFR ( Amer) Est GFR (Non-Af Amer) BUN/Creatinine Ratio Glucose POC Glucose Estimat Average Glucose Hemoglobin A1c Calcium Magnesium Troponin I Triglycerides Cholesterol LDL Cholesterol, Calc VLDL Cholesterol, Calc HDL Cholesterol Cholesterol/HDL Ratio Beta-Hydroxybutyric Acd TSH Urine Color Dark Yellow Urine Appearance Clear Urine pH 5.5 Ur Specific Patterson 1.028 Urine Protein Negative Urine Glucose (UA) Negative Urine Ketones 1+ H Urine Blood Negative Urine Nitrite Negative Urine Bilirubin Negative Urine Urobilinogen Negative Ur Leukocyte Esterase Negative Urine Opiates Screen Ur Methadone, Qual Urine Barbiturates Ur Phencyclidine (PCP) U Amphetamin/Meth Scrn MDMA (Ecstasy) Screen U Benzodiazepines Scrn Ur Cocaine Metabolite U Marijuana (THC) Screen COVID-19 Eval Order Covid19 at [facility] SARS-CoV-2 (PCR) NEGATIVE 06/01/21 06/01/21 06/01/21 20:00 21:34 21:36 WBC RBC Hgb Hct MCV MCH MCHC RDW Std Deviation RDW Coeff of Kai Plt Count MPV VBG pH VBG pCO2 VBG pO2 VBG HCO3 VBG O2 Saturation VBG Base Excess Barometric Pressure Sodium Potassium Chloride Carbon Dioxide Anion Gap BUN Creatinine Est Cr Clr Drug Dosing Est GFR ( Amer) Est GFR (Non-Af Amer) BUN/Creatinine Ratio Glucose POC Glucose 88 Estimat Average Glucose Hemoglobin A1c Calcium Magnesium Troponin I < 0.015 Triglycerides Cholesterol LDL Cholesterol, Calc VLDL Cholesterol, Calc HDL Cholesterol Cholesterol/HDL Ratio Beta-Hydroxybutyric Acd TSH Urine Color Urine Appearance Urine pH Ur Specific Patterson Urine Protein Urine Glucose (UA) Urine Ketones Urine Blood Urine Nitrite Urine Bilirubin Urine Urobilinogen Ur Leukocyte Esterase Urine Opiates Screen Neg Ur Methadone, Qual Neg Urine Barbiturates Neg Ur Phencyclidine (PCP) Neg U Amphetamin/Meth Scrn Neg MDMA (Ecstasy) Screen Neg U Benzodiazepines Scrn Neg Ur Cocaine Metabolite Neg U Marijuana (THC) Screen Neg COVID-19 Eval Order SARS-CoV-2 (PCR) 06/02/21 06/02/21 06/02/21 03:50 03:50 03:50 WBC 11.07 H RBC 4.61 L Hgb 13.4 L Hct 40.8 L MCV 88.5 MCH 29.1 MCHC 32.8 RDW Std Deviation 47.8 H RDW Coeff of Kai 14.8 H Plt Count 366 MPV 9.5 VBG pH VBG pCO2 VBG pO2 VBG HCO3 VBG O2 Saturation VBG Base Excess Barometric Pressure Sodium 140 Potassium 3.8 Chloride 111 H Carbon Dioxide 26 Anion Gap 3.0 BUN 16 Creatinine 1.09 Est Cr Clr Drug Dosing 134.8 Est GFR ( Amer) 100.7 Est GFR (Non-Af Amer) 86.9 BUN/Creatinine Ratio 14.9 Glucose 106 H POC Glucose Estimat Average Glucose 128 Hemoglobin A1c 6.1 H Calcium 7.9 L Magnesium Troponin I < 0.015 Triglycerides 157 H Cholesterol 173 LDL Cholesterol, Calc 109 VLDL Cholesterol, Calc 31 HDL Cholesterol 33 Cholesterol/HDL Ratio 5 Beta-Hydroxybutyric Acd TSH Urine Color Urine Appearance Urine pH Ur Specific Patterson Urine Protein Urine Glucose (UA) Urine Ketones Urine Blood Urine Nitrite Urine Bilirubin Urine Urobilinogen Ur Leukocyte Esterase Urine Opiates Screen Ur Methadone, Qual Urine Barbiturates Ur Phencyclidine (PCP) U Amphetamin/Meth Scrn MDMA (Ecstasy) Screen U Benzodiazepines Scrn Ur Cocaine Metabolite U Marijuana (THC) Screen COVID-19 Eval Order SARS-CoV-2 (PCR) 06/02/21 06/02/21 06/02/21 07:20 10:48 16:04 WBC RBC Hgb Hct MCV MCH MCHC RDW Std Deviation RDW Coeff of Kai Plt Count MPV VBG pH VBG pCO2 VBG pO2 VBG HCO3 VBG O2 Saturation VBG Base Excess Barometric Pressure Sodium Potassium Chloride Carbon Dioxide Anion Gap BUN Creatinine Est Cr Clr Drug Dosing Est GFR ( Amer) Est GFR (Non-Af Amer) BUN/Creatinine Ratio Glucose POC Glucose 95 98 86 Estimat Average Glucose Hemoglobin A1c Calcium Magnesium Troponin I Triglycerides Cholesterol LDL Cholesterol, Calc VLDL Cholesterol, Calc HDL Cholesterol Cholesterol/HDL Ratio Beta-Hydroxybutyric Acd TSH Urine Color Urine Appearance Urine pH Ur Specific Patterson Urine Protein Urine Glucose (UA) Urine Ketones Urine Blood Urine Nitrite Urine Bilirubin Urine Urobilinogen Ur Leukocyte Esterase Urine Opiates Screen Ur Methadone, Qual Urine Barbiturates Ur Phencyclidine (PCP) U Amphetamin/Meth Scrn MDMA (Ecstasy) Screen U Benzodiazepines Scrn Ur Cocaine Metabolite U Marijuana (THC) Screen COVID-19 Eval Order SARS-CoV-2 (PCR)
--- NOTE | 2021-06-02 17:08 | Electrocardiogram Report ---
Test Reason : Blood Pressure : / mmHG Vent. Rate : 067 BPM Atrial Rate : 067 BPM P-R Int : 166 ms QRS Dur : 068 ms QT Int : 398 ms P-R-T Axes : 016 053 050 degrees QTc Int : 420 ms Normal sinus rhythm Normal ECG When compared with ECG of 01-JUN-2021 15:00, Vent. rate has decreased BY 59 BPM Confirmed by Abdullahi Salinas ([id number]) on 06/02/2021 5:08:11 PM Referred By: REFERRED SELF Confirmed By:Wilber Salinas
[2021-06-03] MEDS ORDERED: Nursing to Pharmacy Communication SCH (01:00)
[2021-06-03] MEDS: INSULIN ASPART 100 UNITS/ML 3 ML PEN SC SCH ×2 (05:52→13:39)
--- NOTE | 2021-06-03 07:19 | Pharmacy Report ---
Pharmacy Glycemic Sign Off Nt - Date of Service June 03, 2021 - Assessment & Plan ASSESSMENT: * Pharmacy was consulted by Silas Haile on 06/01/21 for glycemic control and to write orders per [facility] inpatient glycemic control protocol. * No changes have been made to antidiabetic regimen since time of consultation * Patient has required no insulin * BSG has ranged from 85 - 104 mg/dL * Please see recommendations for outpatient antidiabetic regimen below. PLAN FOR INPATIENT GLYCEMIC CONTROL: No changes needed to current regimen. * Continue NovoLog per scale ACHS/Q6hrs while NPO * Goal range = 120 160 mg/dl * CF = 20 mg/dl/unit * No carb coverage * Pharmacy is signing off of glycemic consult and will no longer be making adjustments to inpatient regimen. Please feel free to re-consult if needed. Thank you. DISCHARGE RECOMMENDATIONS: * A1c of 6.1 % on 06/02/21 is acceptable * Encourage healthy Lifestyle (diet, exercise, and smoking cessation) * Metformin should be started at the time type 2 diabetes is diagnosed unless there are contraindications. Metformin is effective and safe, is inexpensive, and may reduce risk of cardiovascular events and . 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 Typically the XR formulation of metformin is better tolerated than the immediate release formulation. Continue to titrate metformin dosing upwards as recommended. Dosage increases should be made in increments of 500 mg weekly, up to 2,000 mg/day PO, given in divided doses. Doses above 2000 mg/day may be better tolerated if divided and given 3 times per day with meals. Max: 2,550 mg/day PO, in divided doses
[2021-06-03 08:14] LABS: Mean Corpuscular Hemoglobin 28.4 pg (25-34); Mean Corpuscular Hgb Conc 32.6 g/dL (32-36); Mean Corpuscular Volume 87.2 fL (80-100); Mean Platelet Volume 9.9 fL (7.4-10.4); Platelet Count 347 K/uL (130-400); RDW Coefficient of Variation 14.5 % (11.5-14.5); RDW Standard Deviation 46.3 fL (36.4-46.3); Red Blood Count 4.93 M/uL (4.7-6.1); White Blood Count 7.28 K/uL (4.8-10.8)
[2021-06-03 08:42] LABS: BUN Creatinine Ratio 11.7 (10-20); Calcium 8.7 mg/dl (8.5-10.1); Est GFR (African American) 105.3 ml/min; Est GFR (Non-African American) 90.9 ml/min; Potassium 4.2 mmol/L (3.5-5.1)
--- NOTE | 2021-06-03 08:58 | Anesthesiology Consultation ---
Date of Service June 03, 2021 Assessment & Plan (1) Encounter for pre-operative examination: Chart Review Chart Review: Acceptable Risk for Surgery and Patient NOT seen in Pre Admission Testing Consults Requested none ASA ASA3 Proposed Anesthesia Anesthesia Type: MAC Risk / Benefits Reviewed With: PT / POA / Parent / Guardian, Accepts Plan and Informed Consent Obtained History Surgery Operation Date: 06/03/21 16:30 Proposed Procedures p Esophagogastroduodenoscopy Dr. Modesta Byers MD Height/Weight Height: 6 ft 3 in Weight: 127.6 kg Allergies Allergy/AdvReac Type Severity Reaction Status Date / Time pectin Allergy Unknown UNKNOWN Verified 06/01/21 15:52 POLLEN Allergy Intermediate SNEEZING, Uncoded 06/01/21 15:54 CONGESTION Tea Allergy Unknown UNKNOWN- Uncoded 06/01/21 15:52 ALLERGIC TO PRESERVATIVES IN TEA Uncoded Nonscreenable Allergy Unknown PRESERVATIVES Uncoded 06/01/21 15:52 Allergen IN TEA AND JELLY Medications Home Medications Medication Instructions Recorded Confirmed Last Taken diphenhydramine HCl 25 mg capsule 50 mg PO DAILY PRN 11/24/19 06/01/21 11/24/19 (Benadryl) amlodipine 5 mg tablet 5 mg PO DAILY 06/01/21 06/01/21 Unknown Active Medications Generic Name Dose Route Start Last Admin Trade Name Venuq PRN Reason Stop Dose Admin Doxycycline Hyclate 100 mg 06/01/21 21:21 06/02/21 20:30 Doxycycline Hyclate 100 Mg Cap PO 06/08/21 21:20 100 mg BID DARRELL Administration Insulin Aspart 0 units 06/03/21 06:00 06/03/21 05:52 Insulin Aspart 100 Units/Ml 3 Ml Pen SC 07/03/21 05:59 Not Given Q6 DARRELL Mupirocin 1 appln 06/01/21 21:21 06/02/21 20:30 Mupirocin 2% Oint 22 Gm Tube EXT 07/01/21 21:20 1 appln TID DARRELL Administration Past Medical History Medical History Anxiety Cholecystitis Depression HTN (hypertension) Hypertension Morbid obesity Raynaud's disease Uncontrolled type II diabetes mellitus Exercise / Class Metabolic Activity II 4-5 Yardwork/Stairs/Walk up hill Past Family History Family History Other Diabetes Heart disease Past Surgical History Surgical History History of ventral hernia repair Hx of cholecystectomy Past Anesthesia History No Hx of Anesthesia Complications History of PONV No Hx of PONV and No Hx of Motion Sickness Social History Smoking Status: Former smoker Do You Dip or Chew Tobacco: No Hx Alcohol Use: No Hx Substance Use: No substance use type: does not use Physical Exam Vital Signs Last Vital Signs Temp 36.6 C 06/03/21 07:54 Pulse 73 06/03/21 07:54 Resp 19 06/03/21 07:54 BP 127/85 06/03/21 07:54 Pulse Ox 96 06/03/21 07:54 ENMT Mouth: no dentition abnormality Thyromental Distance: > or= 3.5 Finger Breadths Mallampati Class: II Neck normal visual inspection Respiratory normal respiratory effort Auscultation: lungs clear to auscultation bilaterally Cardiovascular Rate/Rhythm: regular rate and regular rhythm Psychiatric Orientation: alert and oriented x 3 Testing Laboratory Results 06/03/21 07:24 06/03/21 07:24 APTT 28.9 Seconds (21.0-31.0) 06/01/21 15:00 Hemoglobin A1c 6.1 % (4.5-5.6) H 06/02/21 03:50 Urine Color Dark Yellow 06/01/21 20:00 Urine Appearance Clear (Clear) 06/01/21 20:00 Urine pH 5.5 (4.5-7.5) 06/01/21 20:00 Ur Specific Vantage 1.028 (1.000-1.030) 06/01/21 20:00 Urine Protein Negative (Negative) 06/01/21 20:00 Urine Glucose (UA) Negative (Negative) 06/01/21 20:00 Urine Ketones 1+ (Negative) H 06/01/21 20:00 Urine Nitrite Negative (Negative) 06/01/21 20:00 Ur Leukocyte Esterase Negative (Negative) 06/01/21 20:00 06/01/21 22:00 Gram Stain - Final Toe,Right Great Wound Culture - Preliminary Pin-point growth present, reincubating. 06/03/21 06/03/21 07:35 05:51 POC Glucose 112 H 104 H
[2021-06-03] MEDS ORDERED: PANTOprazole 40 MG TAB PO SCH (09:00)
--- NOTE | 2021-06-03 09:08 | Gastroenterology Progress Note ---
Date of Service June 03, 2021 Assessment & Plan (1) Atypical chest pain: Plan: Pt is a 35 y/o male w c/o atypical CP symptoms, GI etiology to be ruled out. - Keep NPO for EGD today by Dr. Byers - Continue Protonix 40mg PO daily - If EGD unremarkable, no contraindication for DC home today - No plans for surgical intervention per Surgery review of CT abd/pelvis for mildly thickened appendix Admission and Anticipated Discharge Date Admission Date: June 01, 2021 Supervising Physician Co-Signing Physician Notes No acute complaints EGD for evaluation of non-cardiac chest pain/epigastric pain PE - well nourished male in nad, HEENT- perrla, Abd -obese soft nt nd Subjective Pt reports no abd pain, n/v overnight, no BM; denies CP, SOB. Review of Systems Review of Systems: All systems reviewed & are unremarkable except as noted in HPI & below Constitutional: as per Subjective / HPI Respiratory: no cough and no dyspnea Cardiovascular: no chest pain, no lightheadedness and no edema Gastrointestinal: no abdominal pain, no heartburn, no nausea, no vomiting, no hematemesis, no pain with swallowing, no dysphagia, no cramping, no change in stools and no melena Physical Exam Constitutional: WD/WN, vitals as above well groomed, cooperative and comfortable Eyes: PERRL, conjunctivae normal, anicteric sclerae Respiratory: normal respiratory effort, lungs clear to auscultation Cardiovascular: RRR, no murmur, no edema Gastrointestinal (Abdomen): normal bowel sounds, soft, nontender, no hepatosplenomegaly Skin: no rashes, warm and dry no jaundice Psychiatric: A+Ox3, euthymic affect Lymphatic: no lymphedema Results & Data ([facility]) Vital Signs (Past 12 Hours) Vital Signs Temp Pulse Resp BP BP Pulse Ox 06/03/21 07:54 36.6 C 73 19 127/85 96 06/02/21 23:50 36.4 C L 87 20 109/69 95
[2021-06-03] MEDS ORDERED: PROPOFOL IV EMULSION 10 MG/ML 20 ML VIAL IV ONE ×2 (10:13→10:35)
[2021-06-03] MEDS ORDERED: LIDOCAINE 2% 2 ML VIAL/AMP(20MG/ML) INFIL ONE (10:13)
--- NOTE | 2021-06-03 10:33 | GI REPORT ---
Patient Name: Jeremy Alonso Procedure Date: 06/03/2021 10:12 AM Date of : 1985 Admit Type: Inpatient Age: 35 Gender: Male Attending MD: Jossy Byers M.d. Procedure: Upper GI endoscopy Providers: Jossy Byers M.d. Referring MD: Damion Alston Indications: Chest pain (non cardiac) Medicines: Propofol per Anesthesia Complications: No immediate complications. Estimated Blood Loss: Estimated blood loss: none. Procedure: Pre-Anesthesia Assessment: - Patient identification and proposed procedure were verified prior to the procedure by the physician, the nurse and the anesthesiologist. The procedure was verified in the pre-procedure area. - Prior to the procedure, a History and Physical was performed, and patient medications, allergies and sensitivities were reviewed. The patient's tolerance of previous anesthesia was reviewed. - The risks and benefits of the procedure and the sedation options and risks were discussed with the patient. All questions were answered and informed consent was obtained. After obtaining informed consent, the endoscope was passed under direct vision. Throughout the procedure, the patient's blood pressure, pulse, and oxygen saturations were monitored continuously. The Scope was introduced through the mouth, and advanced to the second part of duodenum. The upper GI endoscopy was somewhat difficult due to the patient coughing. The upper GI endoscopy was accomplished without difficulty. The patient tolerated the procedure well. Findings: The examined esophagus appeared normal. LA Grade B (one or more mucosal breaks greater than 5 mm, not extending between the tops of two mucosal folds) esophagitis with no bleeding was found. The examined stomach appeared normal. The duodenal bulb and second portion of the duodenum appeared normal. Impression: - Normal esophagus. - LA Grade B esophagitis. - Normal stomach. - Normal duodenal bulb and second portion of the duodenum. Recommendation: - Continue PPI twice daily for 8 weeks then once daily. Emir Tarango M.d. 06/03/2021 10:32:32 AM This report has been signed electronically. Note Initiated On: 06/03/2021 10:12 AM Number of Addenda: 0 I attest to the content of the Intraoperative Record and orders documented therein, exceptions below {[id number]}
--- NOTE | 2021-06-03 11:15 | Communication Note ---
Date of Service: June 03, 2021 Transthoracic echocardiogram normal on 06/02/2021. Nonmonitored bed. EGD on 06/03/2021 revealed LA Grade B esophagitis. GI recommends PPI twice daily for 8 weeks then once daily. Call if any questions or concerns.
[2021-06-03] MEDS: DOXYCYCLINE HYCLATE 100 MG CAP PO SCH (11:17)
[2021-06-03] MEDS: MUPIROCIN 2% OINT 22 GM TUBE EXT SCH ×2 (11:17→15:05)
--- NOTE | 2021-06-03 14:57 | Anesthesiology Progress Note ---
Date of Service June 03, 2021 Anesthesia Post Procedure Vital Signs Vital Signs: Temp Pulse Pulse Resp BP BP Pulse Ox 06/03/21 11:07 86 18 140/94 96 06/03/21 10:52 88 18 133/87 95 06/03/21 10:37 93 H 18 109/57 L 93 06/03/21 09:22 36.2 C L 76 79 18 161/88 H 161/88 H 97 06/03/21 07:54 36.6 C 73 19 127/85 96 06/02/21 23:50 36.4 C L 87 20 109/69 95 06/02/21 19:43 36.6 C 81 18 125/85 97 06/02/21 16:25 36.6 C 93 H 17 156/108 H 95 Transfer of Care Handoff Completed per policy Notes Mental Status: alert / awake / arousable and participated in evaluation Patient Amnestic to Procedure: Yes Nausea / Vomiting: adequately controlled Pain: adequately controlled Airway Patency, RR, SpO2: stable & adequate BP & HR: stable & adequate Hydration State: stable & adequate Anesthetic Complications: no major complications apparent and Pt Satisfied with anesthetic care
--- NOTE | 2021-06-03 20:05 | Hospitalist Progress Note ---
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 Follow-up as an outpatient (3) ADRIANNE (acute kidney injury): Plan: resolved (4) Abnormal CT of the abdomen: Plan: (+) appendiceal thickening Gen Surg consulted-patient has no symptoms of appendicitis monitor (5) Infection of right foot: Plan: improving Wound culture negative continue Doxycycline x5 days 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 Seen resting in bed, comfortable, not in distress Epigastric pain has resolved No nausea or vomiting Tolerated soft diet well No headache, dizziness, shortness of breath, palpitations Great toe pain improving No other symptoms States he is ready and would like to be discharged today Review of Systems Review of Systems: All noted negative except for above Physical Exam Physical Exam: General- oriented x 3, not in distress, speaks in sentences with no effort or accessory muscle use Eyes- anicteric Neck- no JVD Lungs- clear breath sounds bilaterally, no rales/wheezes Heart- normal rate, regular rhythm; no murmurs Abdomen- normal bowel sounds, nondistended, soft, nontender Extremities- no pretibial edema, no calf tenderness Right great toe swelling, erythema, improving Neuro- alert, oriented x 3; no gross focal neurologic deficits Skin- warm & dry Results & Data Results & Data ([facility]) Vital Signs (Past 12 Hours) Vital Signs Temp Pulse Pulse Resp BP BP Pulse Ox 06/03/21 11:07 86 18 140/94 96 06/03/21 10:52 88 18 133/87 95 06/03/21 10:37 93 H 18 109/57 L 93 06/03/21 09:22 36.2 C L 76 79 18 161/88 H 161/88 H 97 Laboratory Results all noted and reviewed including below
--- NOTE | 2021-06-03 20:07 | Discharge Summary ---
Date of Service June 03, 2021 Admission HPI Per Admitting Provider This is a 35-year-old male with PMH of uncontrolled type 2 diabetes, generalized anxiety disorder, Raynaud's and other medical problems listed below who presents after sudden onset of epigastric/chest pain this afternoon. Patient has been living in [place] for the past few months and took a bus home today. Was walking less than a mile to destination this afternoon when he developed sudden onset pain in his epigastrium that was squeezing and "felt like a vice". Pain radiated up to chest and across in a bandlike distribution with associated shortness of breath. Denies any lightheadedness, radiation to jaw or down arms, nausea or vomiting. Pain was constant for the next 3 hours before resolving in the ED after being given fentanyl. States he has history of panic attacks but that this pain had a more sudden onset and was not associated with feelings of anxiety. Was admitted for similar chest pain at an outside hospital in [facility] back in March 2021 and underwent stress test, which was normal. Was also diagnosed with diabetes during this admission but has not started any oral medications due to being unemployed and lacking insurance. Endorses family history of heart disease and DM II. Chest pain has completely resolved at this point. Endorses pain in right great toe with spontaneous purulent drainage earlier today. Also endorsing some gas pains in the lower abdomen earlier today. Denies any fever, chills, lightheadedness, shortness of breath, wheezing, abdominal pain, dysuria, diarrhea or constipation. Followed with Dr. Upton prior to move to [place]. Is currently homeless. Admission Exam Per Admitting Provider General Appearance: WD/WN, vitals as above, anxious, sitting up in bed, pleasant, conversing easily Head: normocephalic, atraumatic Eyes: normal inspection, PERRL, conjunctivae normal, anicteric sclerae ENT: external ear and nose normal, oropharynx normal Neck: normal visual inspection, trachea midline, no thyromegaly Respiratory: normal respiratory effort, lungs clear to auscultation, no wheeze, rales, rhonchi. No accessory muscle use Cardiovascular: regular rate, rhythm, no murmur appreciated, normal peripheral pulses, no BLE edema. Vessels: no JVD Chest: normal inspection of chest Abdomen/GI: normal bowel sounds, soft, TTP over ventral hernia scarring but otherwise nontender, no hepatosplenomegaly Extremities/Musculoskeletal: + R great toe erythematous and painful to palpation, not warm, no drainage visualized. No cyanosis or clubbing, extremities motor strength 5/5 Neurologic: PERRL, EOMI, accommodation nl, no face palsy, no dysarthria, CN's II-XI intact bilaterally and moves all extremities Psychiatric: A+Ox3, anxious Skin: no rashes, normal color, warm/dry Principal Diagnosis Chest pain secondary to distal esophagitis Discharge Exam General- oriented x 3, not in distress, speaks in sentences with no effort or accessory muscle use Eyes- anicteric Neck- no JVD Lungs- clear breath sounds bilaterally, no rales/wheezes Heart- normal rate, regular rhythm; no murmurs Abdomen- normal bowel sounds, nondistended, soft, nontender Extremities- no pretibial edema, no calf tenderness Right great toe swelling, erythema, improving Neuro- alert, oriented x 3; no gross focal neurologic deficits Skin- warm & dry Discharge Data Allergies Allergy/AdvReac Type Severity Reaction Status Date / Time pectin Allergy Unknown UNKNOWN Verified 06/03/21 09:22 POLLEN Allergy Intermediate SNEEZING, Uncoded 06/03/21 09:22 CONGESTION Tea Allergy Unknown UNKNOWN- Uncoded 06/03/21 09:22 ALLERGIC TO PRESERVATIVES IN TEA Uncoded Nonscreenable Allergy Unknown PRESERVATIVES Uncoded 06/03/21 09:22 Allergen IN TEA AND JELLY Consultations 06/01/21 17:19 ED Decision to Admit Stat 06/02/21 08:00 Consult Cardiology Routine 06/02/21 12:17 Consult Gastroenterology Routine 06/02/21 13:29 Consult General Surgery Routine Procedures Performed Operation Date: 06/03/21 16:30 Actual Procedures p Esophagogastroduodenoscopy - Jossy Byers MD [facility], [place] GI REPORTSigned Patient: DOUG MARIANO Date: 06/01/21MR#: [id number] Phy: Damion Alston, [facility] ID:[id number] Phy: Abad Upton MDBirth Date: 1985Fam Phy:Age: 35Location: 2WSex: M Room/Bed: [id number] Phy: Self, Referredcc: ~ DICTATED BY: Jossy Byers MD Patient Name: Doug Mariano Procedure Date: 06/03/2021 10:12 AM Date of : 1985 Admit Type: Inpatient Age: 35 Gender: Male Attending MD: Jossy Byers M.d. Procedure: Upper GI endoscopy Providers: Jossy Byers M.d. Referring MD: Damion Alston Indications: Chest pain (non cardiac) Medicines: Propofol per Anesthesia Complications: No immediate complications. Estimated Blood Loss: Estimated blood loss: none. Procedure: Pre-Anesthesia Assessment: - Patient identification and proposed procedure were verified prior to the procedure by the physician, the nurse and the anesthesiologist. The procedure was verified in the pre-procedure area. - Prior to the procedure, a History and Physical was performed, and patient medications, allergies and sensitivities were reviewed. The patient's tolerance of previous anesthesia was reviewed. - The risks and benefits of the procedure and the sedation options and risks were discussed with the patient. All questions were answered and informed consent was obtained. After obtaining informed consent, the endoscope was passed under direct vision. Throughout the procedure, the patient's blood pressure, pulse, and oxygen saturations were monitored continuously. The Scope was introduced through the mouth, and advanced to the second part of duodenum. The upper GI endoscopy was somewhat difficult due to the patient coughing. The upper GI endoscopy was accomplished without difficulty. The patient tolerated the procedure well. Findings: The examined esophagus appeared normal. LA Grade B (one or more mucosal breaks greater than 5 mm, not extending between the tops of two mucosal folds) esophagitis with no bleeding was found. The examined stomach appeared normal. The duodenal bulb and second portion of the duodenum appeared normal. Impression: - Normal esophagus. - LA Grade B esophagitis. - Normal stomach. - Normal duodenal bulb and second portion of the duodenum. Recommendation: - Continue PPI twice daily for 8 weeks then once daily. Ordered Studies 06/01/21 15:07 CT abd pelvis wo con Stat CT SCAN OF THE ABDOMEN AND PELVIS WITHOUT CONTRAST CLINICAL HISTORY: epigastric pain eval for free air COMPARISON STUDY: 11/24/2019 TECHNIQUE: CT scan of the abdomen and pelvis was performed from the lung bases to the proximal femurs. Images are reviewed in the axial, sagittal, and coronal planes. IV contrast was not administered for this examination. A dose lowering technique was utilized adhering to the principles of ALARA. CT DOSE: 1596.37 mGy.cm FINDINGS: Lower chest: There is a calcified granuloma within the left lower lobe. There is no significant pleural fluid. Liver: There is hepatic steatosis. No focal masses are visualized on this noncontrast study. Gallbladder: Surgically absent Spleen: Top normal in size Pancreas: There is mild fatty atrophy the pancreas. No masses are visualized in this noncontrast study Adrenal glands: Unremarkable. Kidneys: No renal, ureteral, or bladder calculi are visualized. Bowel: There are no transition zones indicate bowel obstruction. There is no evidence of acute diverticulitis. There is mild appendiceal thickening but no evidence of periappendiceal inflammatory change Peritoneum: There is no intraperitoneal free air or abdominal ascites. There is interval repair of a supraumbilical fat-containing ventral hernia with an apparent-. There is anterior bulging of the mesh. Vasculature: The abdominal aorta is normal in course and caliber. Adenopathy: None. Pelvic viscera: The bladder, and pelvic viscera are unremarkable. Skeletal structures: No destructive osseous lesions are seen. IMPRESSION: 1. No acute intra-abdominal or pelvic findings 2. No evidence of bowel obstruction. No evidence of free air 3. No evidence of acute diverticulitis 4. Mildly thickened appendix measuring 8 mm, but no evidence of periappendiceal inflammatory change. The appendiceal diameter remains relatively similar to the preceding study. In the absence of right lower quadrant abdominal pain this likely represents a normal variation. Clinical correlation recommended. 5. Hepatic steatosis 6. No renal, ureteral, or bladder calculi identified Hospital Course (1) Atypical chest pain: This is a 35-year-old male with PMH of uncontrolled type 2 diabetes, generalized anxiety disorder, Raynaud's and other medical problems listed below who presents after sudden onset of epigastric/chest pain this afternoon. Sudden onset of epigastric pain radiating to chest - constant for 2 hours before resolving in ER CXR with no acute cardiopulmonary findings. Initial troponin negative. EKG with sinus tachycardia with HR 126 bpm Risk factors include uncontrolled DM, family history of heart disease, obesity Reports negative stress test at outside hospital in March 2021 - re-establishing care in [place] after moving back today Observe on telemetry overnight, trend troponin, obtain 2D echo, routine cardiology consult, UDS pending (2) Uncontrolled type II diabetes mellitus: Diagnosed in March 2021 at OSH - never filled prescriptions due to unemployment, lacking insurance A1c pending Initial BSG 250, normal pH, normal beta hydroxybutyric acid SSI while in-patient Glycemic consult for help establishing OP regimen, diabetic education BSG AC HS (3) ADRIANNE (acute kidney injury): Cr elevated at 1.78 - last Cr on record 0.9 from 11/2019 In setting of uncontrolled DM II, dehydration Giving IV fluids, avoid nephrotoxic agents CT abd/pelvis without renal, ureteral, or bladder calculi visualized Repeat BMP in AM - if no improvement, consider renal imaging (4) Abnormal CT of the abdomen: No acute intra-abdominal or pelvic findings but evidence of mildly thickened appendix measuring 8 mm, but no evidence of periappendiceal inflammatory change The appendiceal diameter remains relatively similar to the preceding study. In the absence of right lower quadrant abdominal pain this likely represents a normal variation No pain to RLQ on exam Continue to monitor closely (5) Infection of right foot: Appearance consistent with paronychia, noticed by patient 2 days ago and is spontaneously draining Given dose of Cefazolin in ER Wound culture pending Bactroban ointment TID, doxycycline 100mg BID (6) Hypokalemia: Initial K 3.4 - replaced. Monitor daily BMP (7) Raynaud's disease: Previously taking amlodipine - address with PCP (8) Anxiety: No longer taking medications DVT Ppx: SQ heparin Code status: FULL PCP: Won Dispo: Admitted to PCU Patient seen in collaboration with Dr. Mata. Please see addendum. Total Time Total Time Spent Total Time Spent (In Minutes): 45 minutes Discharge Plan Discharge Items Patient Disposition: Home - Self-Care Reason For Visit: CP, HYPERGLYCEMIA, ADRIANNE Discharge Diagnosis: Chest pain secondary to esophagitis Right great toe infection Activity: Resume your previous activity Non-emergency contact: Primary Care Provider Call non-emergency contact if: you have any medication questions, your symptoms worsen, your pain is not controlled, your pain is worsening, your pain is unusual for you, your pain is concerning for you and you have a fever Follow-up/Referrals: Abad Upton MD [Primary Care Provider] - 06/07/21 3:20 pm (Date & Time 06/07/2021 3:20 PM Provider Abad Upton MD Department Family [facility] ) Diet: Carb Consistent or DM2 Addtl Attending Provider Instructions: Please review new medication list and follow instructions carefully. Your new medications include: Pantoprazole-to reduce stomach acid, take at least 30 minutes before breakfast and dinner To be taken twice a day for 8 weeks, then once daily Doxycycline-antibiotic for great toe infection Do not take medications under the class of NSAIDs including ibuprofen, naproxen, etc. Always consult with your physician first before starting any new medication. No acidic or spicy food/beverages. No smoking or alcohol. Call primary care physician or return to the ER immediately if with worsening of symptoms. Follow-up with primary care physicians as scheduled above. Pending Studies at Discharge: Yes Studies:: Biopsy result from EGD Final wound culture results Stand-Alone Forms: My [facility] [employer], Smoking Cessation Medications and DC Order Prescriptions: New doxycycline hyclate 100 mg Capsule 100 mg PO BID Qty: 10 RF: 0 pantoprazole 40 mg Tablet,Delayed Release (Dr/Ec) 40 mg PO BID Qty: 60 RF: 1 Continued diphenhydramine HCl [Benadryl] 25 mg Capsule 50 mg PO DAILY PRN (Reason: Allergy Symptoms) RF: 0 amlodipine 5 mg Tablet 5 mg PO DAILY RF: 0 Discharge Orders: Discharge Order (Routine); Ordered 06/03/21 Ordered By: Damion Alston Admission Data Admit Date/Time: 06/01/21 17:27 Attending Provider: Damion Alston Admit Provider: Quita Mata Primary Care Provider: Abad Upton Other Providers: Quita Mata ; Gamal Gonzalez ; Jossy Byers ; Jean Marie Nowak Other Interventions: Discharge Summary Assessment (RN) Last Done: 06/03/21 10:50
== END 2021-06-03 15:37 | disposition home or self-care (01) | DRG 392 ==
LOC: ED 14:58 → SUATTDRO 17:27 → 2S 17:27 → 2W 06-02 16:58